=== PATIENT | female | born 1985 | race Caucasian/White ===

== ENCOUNTER 2016-12-26 22:55 | Emergency (ER) | payer MEDICARE ==
[2016-12-26] MEDS ORDERED: DUONEB 0.5-3 MG/3 ml Neb IH ONE ×2 (23:10→23:20)
--- NOTE | 2016-12-26 23:20 | ERPHSYRPT ---
- History of Present Illness Time Seen by Provider: 12/26/16 23:01 Source: patient Exam Limitations: no limitations Patient Subjective Stated Complaint: "I have been sick. I even went to my PCP and they gave me a steriod shot right then and there. My throat feeling swelled started today. The cough started 2 weeks ago. " Triage Nursing Assessment: aox3, breathing easy unlabored, skin pink warm dry, steady gait, speaking in complete sentences Physician History: ill for 1 1/2 weeks; started with sore throat and cough; low grade fever; some N &V associated with coughing paroxysm; no abd pain; one day late for period; may be ; has had unprotected sex; [facility] 1 a year ago no travel; no exposures; on ATBS and steroids- no better; cough non-productive Timing/Duration: week(s) (1.5 weeks), gradual onset, worse Cough Quality/Degree: mild, dry cough Possible Cause: no prior episodes Modifying Factors: Improves With: coughing Associated Symptoms: fever, chest pain/soreness (when coughs only), cough, sore throat, wheezing International travel in last 2 weeks: No Allergies/Adverse Reactions: sulfamethoxazole [From Bactrim] Allergy (Verified 12/26/16 23:11) trimethoprim [From Bactrim] Allergy (Verified 12/26/16 23:11) vancomycin Allergy (Verified 12/26/16 23:11) Home Medications: Levothyroxine Sodium [Synthroid] 75 mcg PO DAILY 09/01/11 [History] Folic Acid 1 mg PO DAILY 09/02/14 [History] Metformin HCl 1000 mg [Glucophage 1000 MG] 1,000 mg PO BID 09/02/14 [History] Secukinumab [Cosentyx (2 Syringes)] 300 mg IM UD 10/23/15 [History] Doxycycline Hyclate 100 mg [Vibramycin 100 MG] 100 mg PO BID 12/26/16 [ History] Ergocalciferol (Vitamin D2) [Vitamin D] 1 tab PO WEEKLY 12/26/16 [History] Fluoxetine HCl 20 mg [Prozac 20 MG] 20 mg PO DAILY 12/26/16 [History] Fluticasone Propionate [Children's Flonase Allergy Rlf] 9.9 ml NS DAILY [History] Methotrexate Sodium [Methotrexate] 8 tab PO WEEKLY 12/26/16 [History] Prednisone 10 mg [Deltasone 10 mg] 1 tab PO QID 12/26/16 [History] Hx Tetanus, Diphtheria Vaccination/Date Given: Yes Hx Influenza Vaccination/Date Given: No Hx Pneumococcal Vaccination/Date Given: No - Review of Systems Constitutional: Fever, No Night Sweats, No Weight Loss Eyes: No Symptoms Ears, Nose, & Throat: Throat Pain, Throat Swelling (feels like x 1 day), Hoarse (from coughing), No Ear Pain, No Tinnitus, No Sinus Drainage, No Epistaxis, No Painful Swallowing Respiratory: Cough, Wheezing, No Dyspnea Cardiac: Chest Pain (with coughing), No Palpitations, No Syncope Abdominal/Gastrointestinal: Nausea, Vomiting (with coughing paroxysms), No Abdominal Pain, No Constipation, No Dysphagia Genitourinary Symptoms: No Symptoms Musculoskeletal: No Symptoms Skin: Other (psoriasis) Neurological: No Symptoms Psychological: No Symptoms Endocrine: No Symptoms Hematologic/Lymphatic: No Symptoms - Past Medical History Pertinent Past Medical History: Yes Neurological History: No Pertinent History ENT History: No Pertinent History Cardiac History: No Pertinent History Respiratory History: Asthma, Sleep Apnea Endocrine Medical History: Diabetes Type I, Hypothyroidism Musculoskeletal History: Arthritis, Rheumatoid Arthritis GI Medical History: No Pertinent History History: No Pertinent History Psycho-Social History: No Pertinent History Female Reproductive Disorders: No Pertinent History Other Medical History: PSORIASIS - Past Surgical History Past Surgical History: Yes Neuro Surgical History: No Pertinent History Cardiac: No Pertinent History Respiratory: No Pertinent History Gastrointestinal: No Pertinent History Genitourinary: No Pertinent History Musculoskeletal: No Pertinent History Female Surgical History: No Pertinent History Other Surgical History: 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 - Social History Smoking Status: Current every day smoker How long have you smoked: 6 years Exposure to second hand smoke: Yes Alcohol Use: None Drug Use: none Patient Lives Alone: No Significant Family History: diabetes - Female History Hx Last Menstrual Period: 11/24/16 Hx Now: No - Nursing Vital Signs Nursing Vital Signs: Initial Vital Signs Temperature 97.9 F 12/26/16 23:01 Pulse Rate 96 H 12/26/16 23:01 Respiratory Rate 16 12/26/16 23:01 Blood Pressure 137/92 12/26/16 23:01 O2 Sat by Pulse Oximetry 97 12/26/16 23:01 Pain Scale Pain Intensity 5 - Physical Exam General Appearance: mild distress, alert, obese (morbid 356#s 5'2") Eye Exam: PERRL/EOMI, eyes nml inspection, No photophobia Ears, Nose, Throat Exam: normal ENT inspection, TMs normal, pharynx normal, moist mucous membranes, other (normal voice; uvual midline;), No pharyngeal erythema Neck Exam: normal inspection, non-tender, supple, full range of motion, No meningismus, No JVD, No subcutaneous emphysema Respiratory Exam: airway intact, diminished breath sounds, prolonged expirations , wheezing, No normal breath sounds, No chest tenderness, No lungs clear, No respiratory distress, No accessory muscle use, No rhonchi, No stridor Cardiovascular Exam: regular rate/rhythm, normal heart sounds, normal peripheral pulses, capillary refill <2 sec, No murmur Gastrointestinal/Abdomen Exam: soft, normal bowel sounds, No tenderness, No guarding, No rebound, No organomegaly Pelvic Exam: deferred Rectal Exam: deferred Back Exam: normal inspection, normal range of motion, No CVA tenderness Extremity Exam: normal inspection, normal range of motion, No dustin's sign, No pedal edema Neurologic Exam: alert, oriented x 3, cooperative, mold inspector II-XII nml as tested, normal mood/affect, nml cerebellar function, nml station & gait Skin Exam: normal color, warm, dry, other (psoriatic lesions on forearms), No rash, No petechiae, No cyanosis Lymphatic Exam: No adenopathy SpO2 Interpretation: normal SpO2: 97 Oxygen Delivery: Room Air - Course Nursing assessment & vital signs reviewed: Yes - Radiology Exams Chest X-ray Interpretation: Interpreted by me, No Pneumonia, No Pneumothorax, Nml Heart Size, No Infiltrates, Nml Mediastinum, Other (increased interstitial markings; poor inspiratory effort) Ordered Tests: Active Orders 24 hr Category Date Time Status Pulse Oximetry (ED) STAT Care 12/26/16 23:10 Active CHEST 1 VIEW (PORTABLE) Stat Exams 12/26/16 23:10 Taken CBC W DIFF Stat Lab 12/26/16 23:30 Completed CULTURE, THROAT Stat Lab 12/26/16 23:30 Received HCG QUALITATIVE,SERUM Stat Lab 12/26/16 23:30 Completed Manual Differential NC Stat Lab 12/26/16 23:30 Completed STREP SCREEN-BETA A Stat Lab 12/26/16 23:30 Completed Peak Expiratory Flow Rate ONCE RT 12/26/16 23:10 Completed Respiratory Nebulizer STAT RT 12/26/16 23:12 Completed Medication Summary Discontinued Medications Generic Name Dose Route Start Last Admin Trade Name Ryan PRN Reason Stop Dose Admin Albuterol/Ipratropium 3 ml 12/26/16 23:10 12/26/16 23:23 Duoneb 0.5-3 Mg/3 Ml Neb IH 12/26/16 23:11 3 ml STAT ONE Administration Albuterol/Ipratropium Confirm 12/26/16 23:20 Duoneb 0.5-3 Mg/3 Ml Neb Administered 12/26/16 23:21 Dose 3 ml IH .STK-MED ONE Lab/Rad Data: Laboratory Result Diagrams 12/26/16 23:30 Laboratory Results 12/26/16 12/26/16 12/26/16 Range/Units 23:30 23:30 23:30 WBC 16.0 H (4.0-10.5) K/mm3 RBC 4.25 (4.1-5.4) M/mm3 Hgb 13.3 (12.0-16.0) gm/dl Hct 41.7 (35-47) % MCV 98.1 (78-100) fl MCH 31.3 (26-32) pg MCHC 31.9 L (32-36) g/dl RDW 13.7 (11.5-14.0) % Plt Count 242 (150-450) K/mm3 MPV 10.2 H (6-9.5) fl Serum , Qual NEGATIVE (Negative) Streptococcus Screen NEGATIVE (Negative) reviewed - Progress Progress: re-examined (after resp treatment and xr) Air Movement: fair, good (after resp treatmetn) Progress Note: 12/26/16 23:21 will give resp treatment; will check preg and strep; will xr and shield; will recheck 12/26/16 23:44 recheck after respiratory treatment; peak flow pre 260 and post 260; wheezing resolved after duoneb and prolonged expiratory phase improved; hoarse voice improved; cxr unremarkable; labs pending 12/26/16 23:55 strep neg; elevated WBC but on steroids for several days now 12/27/16 00:09 preg test neg; treatment plan discussed and instructions given Blood Culture(s) Obtained: No Antibiotics given: No Counseled pt/family regarding: lab results, diagnosis, need for follow-up, rad results, smoking cessation - Departure Time of Disposition: 00:10 Departure Disposition: Home Clinical Impression: Asthmatic bronchitis, Laryngitis Condition: Stable Critical Care Time: No Referrals: CASSIE GUNN, GENETIC COUNSELOR [Primary Care Provider] - Instructions: Cough -- Adult, Laryngitis Additional Instructions: vaporizer; clear fluids; no talking; use inhaler prn; continue meds; chlorseptic gargles Follow-up with family doctor as directed. Call for appointment. Return if any problems. If you smoke please stop. Call or follow up with your family doctor for assistance if you need it to stop. Please wear your seatbelt when driving. Have a nice day. Thank you for allowing us to participate in your care today. :o) Dr Benny Faustin Prescriptions: Albuterol 8 gm Mdi Hfa [Ventolin Hfa MDI] 8 gm IH Q4-6HPRN PRN #1 [email or web address] PRN Reason: Cough
[2016-12-26 23:36] LABS: Mean Cell Volume 98.1 fl (78-100); Mean Corpuscular Hemoglobin 31.3 pg (26-32); Mean Platelet Volume 10.2 fl (6-9.5); Platelet Count 242 K/mm3 (150-450); Red Blood Count 4.25 M/mm3 (4.1-5.4); Red Cell Distribution Width 13.7 % (11.5-14.0)
[2016-12-27] VITALS: BP 114/51; PULSE 89
[2016-12-27 00:13] VITALS: O2SAT 97
[2016-12-27 01:41] LABS: ATYPICAL LYMPHS 3 %; Platelet Estimate NORMAL (NORMAL); Total Cells Counted 100
--- NOTE | 2016-12-27 09:15 | XRAY ---
Indication: Fever and cough. Comparison: September 02, 2014. Portable chest underinflated today accentuating the cardiopulmonary structures. No focal infiltrate, consolidation, or large effusion. Heart still within normal limits for AP portable technique. Bony thorax intact. Impression: Nonacute underinflated chest.
== END 2016-12-27 00:17 | disposition home or self-care (01) ==
LOC: ED 22:55
DX: J45.909 Unspecified asthma, uncomplicated (principal); J04.0 Acute laryngitis; R50.9 Fever, unspecified; R05 Cough; R06.2 Wheezing; R11.2 Nausea with vomiting, unspecified
CPT/HCPCS: 36415; 71010; 84703; 85025; 87070; 87430; 94150; 94640; 99283; 99284; A9270-GY

== ENCOUNTER 2018-09-27 12:13 | Emergency (ER) | payer MEDICARE ==
[2018-09-27 12:53] VITALS: BP 111/83; PULSE 97
[2018-09-27 13:43] LABS: Hematocrit 41.8 % (35-47); Hemoglobin 12.8 gm/dl (12.0-16.0); Mean Cell Volume 98.4 fl (78-100); Mean Corpuscular Hemoglobin 30.1 pg (26-32); Mean Corpuscular Hgb Concent. 30.6 g/dl (32-36); Mean Platelet Volume 9.9 fl (6-9.5); Platelet Count 225 K/mm3 (150-450); Red Blood Count 4.25 M/mm3 (4.1-5.4); Red Cell Distribution Width 14.9 % (11.5-14.0); White Blood Count 10.9 K/mm3 (4.0-10.5)
--- NOTE | 2018-09-27 13:48 | ERPHSYRPT ---
- History of Present Illness Time Seen by Provider: 09/27/18 13:46 Source: patient Exam Limitations: no limitations Patient Subjective Stated Complaint: fever for 3 days, cough non productive, chest congestion. vomiting today. no diarrhea. Triage Nursing Assessment: Alert and oriented. non productive persistant cough. non labored breathing. lungs clear to auscultation. Physician History: fever for 3 days, cough non productive, chest congestion. vomiting today. no diarrhea. Timing/Duration: today Associated Symptoms: chest pain/soreness, cough, headache, nasal congestion, sore throat, wheezing Allergies/Adverse Reactions: sulfamethoxazole [From Bactrim] Allergy (Verified 12/26/16 23:11) trimethoprim [From Bactrim] Allergy (Verified 12/26/16 23:11) vancomycin Allergy (Verified 12/26/16 23:11) Home Medications: Levothyroxine Sodium [Synthroid] 274 mcg PO DAILY 09/01/11 [History] Folic Acid 1 mg PO DAILY 09/02/14 [History] Secukinumab [Cosentyx (2 Syringes)] 300 mg IM UD 10/23/15 [History] Ergocalciferol (Vitamin D2) [Vitamin D] 1 tab PO WEEKLY 12/26/16 [History] Fluoxetine HCl 20 mg [Prozac 20 MG] 20 mg PO DAILY 12/26/16 [History] Methotrexate Sodium [Methotrexate] 8 tab PO WEEKLY 12/26/16 [History] Sitagliptin Phosphate 50 MG [Januvia 50 MG] 100 mg PO DAILY 09/27/18 [ History] Hx Tetanus, Diphtheria Vaccination/Date Given: Yes Hx Influenza Vaccination/Date Given: No Hx Pneumococcal Vaccination/Date Given: No Immunizations Up to Date: Yes - Review of Systems Constitutional: Fever, Malaise, Weakness, No Chills Eyes: No Symptoms Ears, Nose, & Throat: No Symptoms Respiratory: Cough, Wheezing, No Dyspnea Cardiac: No Chest Pain, No Edema, No Syncope Abdominal/Gastrointestinal: No Abdominal Pain, No Nausea, No Vomiting, No Diarrhea Genitourinary Symptoms: No Dysuria Musculoskeletal: No Back Pain, No Neck Pain Skin: No Rash Neurological: No Dizziness, No Focal Weakness, No Sensory Changes Psychological: No Symptoms Endocrine: No Symptoms All Other Systems: Reviewed and Negative - Past Medical History Pertinent Past Medical History: Yes Neurological History: No Pertinent History ENT History: No Pertinent History Cardiac History: No Pertinent History Respiratory History: Asthma, Sleep Apnea Endocrine Medical History: Diabetes Type I, Hypothyroidism Musculoskeletal History: Arthritis, Rheumatoid Arthritis GI Medical History: No Pertinent History History: No Pertinent History Psycho-Social History: No Pertinent History Female Reproductive Disorders: No Pertinent History Other Medical History: PSORIASIS - Past Surgical History Past Surgical History: Yes Neuro Surgical History: No Pertinent History Cardiac: No Pertinent History Respiratory: No Pertinent History Gastrointestinal: No Pertinent History Genitourinary: No Pertinent History Musculoskeletal: No Pertinent History Female Surgical History: No Pertinent History Other Surgical History: 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 - Social History Smoking Status: Current every day smoker How long have you smoked: 6 years Exposure to second hand smoke: Yes Alcohol Use: None Drug Use: none Patient Lives Alone: No Significant Family History: diabetes - Female History Hx Last Menstrual Period: 09/05/18 Hx Now: No - Nursing Vital Signs Nursing Vital Signs: Initial Vital Signs Temperature 98.5 F 09/27/18 12:14 Pulse Rate 97 H 09/27/18 12:14 Respiratory Rate 22 09/27/18 12:14 Blood Pressure 111/83 09/27/18 12:14 Pain Scale Pain Intensity 4 - Physical Exam General Appearance: no apparent distress, alert Eye Exam: PERRL/EOMI, eyes nml inspection Ears, Nose, Throat Exam: normal ENT inspection, TMs normal, pharynx normal, moist mucous membranes Neck Exam: normal inspection, non-tender, supple, full range of motion Respiratory Exam: diminished breath sounds, rhonchi, wheezing, No respiratory distress Cardiovascular Exam: regular rate/rhythm, normal heart sounds Gastrointestinal/Abdomen Exam: soft, No tenderness Back Exam: normal inspection, No CVA tenderness, No vertebral tenderness Extremity Exam: normal inspection, normal range of motion Neurologic Exam: alert, oriented x 3, cooperative, normal mood/affect, sensation nml, No motor deficits Skin Exam: normal color, warm, dry, No rash Lymphatic Exam: No adenopathy - Course Nursing assessment & vital signs reviewed: Yes - Radiology Exams Chest X-ray Interpretation: Reviewed by me, Negative Ordered Tests: Active Orders 24 hr Category Date Time Status CHEST 2 VIEWS (PA AND LAT) Stat Exams 09/27/18 13:11 Taken BMP Stat Lab 09/27/18 13:37 Received CBC W DIFF Stat Lab 09/27/18 13:37 Completed Manual Differential NC Stat Lab 09/27/18 13:37 Completed Medication Summary Generic Name Dose Route Start Last Admin Trade Name Ryan PRN Reason Stop Dose Admin Ceftriaxone Sodium 1,000 mg 09/27/18 13:49 Rocephin 1000 Mg Inj IM 09/27/18 13:50 STAT ONE Hydrocortisone Sodium Succinate 250 mg 09/27/18 13:49 Solu-Cortef 250mg IV 09/27/18 13:50 STAT ONE Lab/Rad Data: Laboratory Result Diagrams 09/27/18 13:37 Laboratory Results 09/27/18 Range/Units 13:37 WBC 10.9 H (4.0-10.5) K/mm3 RBC 4.25 (4.1-5.4) M/mm3 Hgb 12.8 (12.0-16.0) gm/dl Hct 41.8 (35-47) % MCV 98.4 (78-100) fl MCH 30.1 (26-32) pg MCHC 30.6 L (32-36) g/dl RDW 14.9 H (11.5-14.0) % Plt Count 225 (150-450) K/mm3 MPV 9.9 H (6-9.5) fl - Progress Progress: improved Air Movement: good Blood Culture(s) Obtained: No Antibiotics given: No Counseled pt/family regarding: lab results, diagnosis, need for follow-up, rad results - Departure Departure Disposition: Home Clinical Impression: Bronchitis Condition: Stable Critical Care Time: No Referrals: CASSIE GUNN, SHINGLE SHEARING MACHINE OPERATOR [Primary Care Provider] - Followup in 3 days w/ PCP Instructions: Acute Bronchitis, Adult (DC), Risk Factors for COPD, Chronic Bronchitis (DC) Additional Instructions: Discharge/Care Plan ELVIRAMISTI KATELYNN BOND was seen on 09/27/18 in the Emergency Room. The patient was counseled regarding Diagnosis,Lab results, Imaging studies, need for follow up and when to return to the Emergency Room. Prescriptions given: Discharge Note I have spoken with the patient and/or caregivers. I have explained the patient' s condition, diagnosis and treatment plan based on the information available to me at this time. I have answered the patient's and/or caregiver's questions and addressed any concerns. The patient and/or caregivers have as good understanding of the patient's diagnosis, condition and treatment plan as can be expected at this point. The vital signs have been stable. The patient's condition is stable and appropriate for discharge from the emergency department. The patient will pursue further outpatient evaluation with the primary care physician or other designated or consulting physician as outlined in the discharge instructions. The patient and/or caregivers are agreeable to this plan of care and follow-up instructions have been explained in detail. The patient and/or caregivers have received these instruction. The patient/and or caregivers are aware that any significant change in condition or worsening of symptoms should prompt an immediate return to this or the closest emergency department or call 911. Prescriptions: Amoxicillin/Potassium Clav [Amox-Clav ER 1,000-62.5 mg Tab] 1 each PO Q12H #15 tab.er.12h
[2018-09-27] MEDS ORDERED: solu-CORTEF 250MG IV ONE (13:49)
[2018-09-27] MEDS ORDERED: Rocephin 1000 MG INJ IM ONE (13:49)
[2018-09-27 13:51] LABS: ANION GAP 13.9 MEQ/L (5-15); BLOOD UREA NITROGEN 8 mg/dL (7-17); CHLORIDE 96 mmol/L (98-107); Calcium 8.7 mg/dL (8.4-10.2); Carbon Dioxide 32 mmol/L (22-30); Creatinine 1 0.68 mg/dL (0.52-1.04); Glucose 159 mg/dL (74-106); Potassium 4.3 mmol/L (3.5-5.1); SODIUM 138 mmol/L (137-145)
[2018-09-27] MEDS ORDERED: Rocephin 1000 MG INJ ONE (13:54)
[2018-09-27 14:13] LABS: Eosinophil 5 % (0.00-3.0); Lymphocytes 19 % (24-44); Monocyte 3 % (0.0-12.0); Neutrophils 73 % (36.0-66.0); Platelet Estimate NORMAL (NORMAL); Total Cells Counted 100; Toxic Granulation 1+
--- NOTE | 2018-09-27 20:16 | XRAY ---
Indication: Fever, congestion, and vomiting. Comparison: December 26, 2016. PA/lateral chest remains clear. Heart and mediastinal structures within normal limits. Bony thorax intact again with mild degenerative changes. Impression: Stable nonacute chest.
== END 2018-09-27 14:18 | disposition home or self-care (01) ==
LOC: ED 12:13
DX: J40 Bronchitis, not specified as acute or chronic (principal); R05 Cough; R50.9 Fever, unspecified; R09.89 Other specified symptoms and signs involving the circulatory and respiratory systems; Z79.899 Other long term (current) drug therapy; E10.9 Type 1 diabetes mellitus without complications; E03.9 Hypothyroidism, unspecified; R11.10 Vomiting, unspecified
CPT/HCPCS: 36415; 71046; 80048; 85025; 96372; 99284; J0696; J1720

== ENCOUNTER 2022-04-24 20:40 | Emergency (ER) | payer MEDICARE ==
[2022-04-24 22:10] VITALS: BP 132/102; PULSE 101; O2SAT 99
[2022-04-24 22:37] LABS: Basophil (Absolute #) 0.11 x10^3/uL (0-0.4); Eosinophil % 2.9 % (0.00-5.0); Hematocrit 43.6 % (35-47); Hemoglobin 13.8 g/dL (12.0-16.0); Lymphocyte (Absolute #) 1.22 x10^3/uL (1.0-4.6); Lymphocytes % 11.8 % (24.0-44.0); Mean Cell Volume 98.2 fL (78-100); Mean Corpuscular Hemoglobin 31.1 pg (26-32); Mean Corpuscular Hgb Concent. 31.7 g/dL (32-36); Mean Platelet Volume 9.3 fL (7.5-11.0); Monocyte (Absolute #) 0.85 x10^3/uL (0.0-1.3); Monocytes % 8.3 % (0.0-12.0); Neutrophil % 74.7 % (36.0-66.0); Platelet Count 208 x10^3/uL (150-450); Red Blood Count 4.44 x10^6/uL (4.1-5.4); Red Cell Distribution Width 12.9 % (11.5-14.0); White Blood Count 10.3 x10^3/uL (4.0-10.5)
[2022-04-24 22:54] LABS: ALBUMIN 4.1 g/dL (3.5-5.0); ANION GAP 10.7 MEQ/L (5-15); BILIRUBIN,TOTAL 0.5 mg/dL (0.2-1.3); Calcium 8.5 mg/dL (8.4-10.2); Creatinine 1 1.1 mg/dL (0.52-1.04); EST GLOMERULAR FILTRATION RATE 59.7 ML/MIN; Potassium 4.8 mmol/L (3.5-5.1); Total Protein 7.5 g/dL (6.3-8.2)
--- NOTE | 2022-04-25 00:26 | ERPHSYRPT ---
- History of Present Illness Time Seen by Provider: 04/24/22 21:50 Source: patient Exam Limitations: no limitations Patient Subjective Stated Complaint: pt states she has been having diarrhea recently and today had a black stool. took 1 dose of pepto yesterday. Triage Nursing Assessment: pt alert and oriented, ambulates into room with steady gait noted. respirations nonlabored. skin warm and dry. psoriasis rash noted generalized . abd soft and nontender. bowel sounds present x 4 quads. Physician History: Patient is a 36-year-old female who presents with a complaint of a black tarry stool. She had been having some diarrhea she was recently taken off of Ozempic and put on another medication. She did take some Pepto-Bismol for her diarrhea yesterday before the black stool. Timing/Duration: day(s) (3) Severity: moderate Modifying Factors: Improves With: nothing Associated Symptoms: nausea, abdominal pain Allergies/Adverse Reactions: sulfamethoxazole [From Bactrim] Allergy (Verified 04/24/22 22:11) trimethoprim [From Bactrim] Allergy (Verified 04/24/22 22:11) vancomycin Allergy (Verified 04/24/22 22:11) Home Medications: Levothyroxine Sodium [Synthroid] 274 mcg PO DAILY 09/01/11 [History] Folic Acid 1 mg PO DAILY 09/02/14 [History] Secukinumab [Cosentyx (2 Syringes)] 300 mg IM UD 10/23/15 [History] Ergocalciferol (Vitamin D2) [Vitamin D] 1 tab PO WEEKLY 12/26/16 [History] Fluoxetine HCl 20 mg [Prozac 20 MG] 20 mg PO DAILY 12/26/16 [History] metHOTREXate sodium [Methotrexate] 8 tab PO WEEKLY 12/26/16 [History] Sitagliptin Phosphate 50 MG [Januvia 50 MG] 100 mg PO DAILY 09/27/18 [History] Hx Tetanus, Diphtheria Vaccination/Date Given: Yes Hx Influenza Vaccination/Date Given: No Hx Pneumococcal Vaccination/Date Given: No Immunizations Up to Date: Yes Travel Risk - International Travel Have you traveled outside of the country in past 3 weeks: No - Coronavirus Screening Are you exhibiting any of the following symptoms?: No Close contact with a COVID-19 positive Pt in past 14-21 Days: No - Vaccine Status Have you recieved a Covid-19 vaccination: Yes Organ Tuner: Pfizer - Vaccination Dates Date of 2cond Vaccination (if applicable): 02/08/21 - Review of Systems Constitutional: No Fever, No Chills Eyes: No Symptoms Ears, Nose, & Throat: No Symptoms Respiratory: No Cough, No Dyspnea Cardiac: No Chest Pain, No Edema, No Syncope Abdominal/Gastrointestinal: Melena, No Abdominal Pain, No Nausea, No Vomiting, No Diarrhea Genitourinary Symptoms: No Dysuria Musculoskeletal: No Back Pain, No Neck Pain Skin: No Rash Neurological: No Dizziness, No Focal Weakness, No Sensory Changes Psychological: No Symptoms Endocrine: No Symptoms All Other Systems: Reviewed and Negative - Past Medical History Pertinent Past Medical History: Yes Neurological History: No Pertinent History ENT History: No Pertinent History Cardiac History: No Pertinent History Respiratory History: Asthma, Sleep Apnea Endocrine Medical History: Diabetes Type I, Hypothyroidism Musculoskeletal History: Arthritis, Rheumatoid Arthritis GI Medical History: No Pertinent History History: No Pertinent History Psycho-Social History: No Pertinent History, Anxiety Female Reproductive Disorders: No Pertinent History Other Medical History: PSORIASIS - Past Surgical History Past Surgical History: Yes Neuro Surgical History: No Pertinent History Cardiac: No Pertinent History Respiratory: No Pertinent History Gastrointestinal: No Pertinent History Genitourinary: No Pertinent History Musculoskeletal: No Pertinent History Female Surgical History: No Pertinent History Other Surgical History: 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 - Social History Smoking Status: Current every day smoker How long have you smoked: 20 yrs Exposure to second hand smoke: Yes Alcohol Use: None Drug Use: none Patient Lives Alone: No Significant Family History: diabetes - Female History Hx Last Menstrual Period: last month Hx Now: No - Nursing Vital Signs Nursing Vital Signs: Initial Vital Signs Temperature 98.0 F 04/24/22 21:49 Pulse Rate 101 H 04/24/22 21:49 Respiratory Rate 18 04/24/22 21:49 Blood Pressure 132/102 04/24/22 21:49 O2 Sat by Pulse Oximetry 99 04/24/22 21:49 Pain Scale Pain Intensity 0 - Physical Exam General Appearance: no apparent distress, alert Eye Exam: PERRL/EOMI, eyes nml inspection Ears, Nose, Throat Exam: normal ENT inspection, TMs normal, pharynx normal, moist mucous membranes Neck Exam: normal inspection, non-tender, supple, full range of motion Respiratory Exam: normal breath sounds, lungs clear, No respiratory distress Cardiovascular Exam: regular rate/rhythm, normal heart sounds, normal peripheral pulses Gastrointestinal/Abdomen Exam: soft, normal bowel sounds, No tenderness, No mass Back Exam: normal inspection, normal range of motion, No CVA tenderness, No vertebral tenderness Extremity Exam: normal inspection, normal range of motion, pelvis stable Neurologic Exam: alert, oriented x 3, cooperative, normal mood/affect, nml cerebellar function, nml station & gait, sensation nml, No motor deficits Skin Exam: normal color, warm, dry, No rash Lymphatic Exam: No adenopathy SpO2: 99 - Course Nursing assessment & vital signs reviewed: Yes Ordered Tests: Active Orders 24 hr Category Date Time Status CBC W DIFF Stat Lab 04/24/22 22:35 Completed CMP Stat Lab 04/24/22 22:35 Completed Occult Blood Stool [FECAL OCCULT BLOOD - SCREENING] Lab 04/24/22 23:25 Complet ed Stat Lab/Rad Data: Laboratory Result Diagrams 04/24/22 22:35 04/24/22 22:35 Laboratory Results 04/24/22 04/24/22 04/24/22 Range/Units 23:25 22:35 22:35 WBC 10.3 (4.0-10.5) x10^3/uL RBC 4.44 (4.1-5.4) x10^6/uL Hgb 13.8 (12.0-16.0) g/dL Hct 43.6 (35-47) % MCV 98.2 (78-100) fL MCH 31.1 (26-32) pg MCHC 31.7 L (32-36) g/dL RDW 12.9 (11.5-14.0) % Plt Count 208 (150-450) x10^3/uL MPV 9.3 (7.5-11.0) fL Gran % 74.7 H (36.0-66.0) % Immature Gran % (Auto) 1.2 H (0.00-0.4) % Nucleat RBC Rel Count 0.0 (0.00-0.1) % Eos # (Auto) 0.30 (0-0.5) x10^3/uL Immature Gran # (Auto) 0.12 H (0.00-0.03) x10^3u/L Absolute Lymphs (auto) 1.22 (1.0-4.6) x10^3/uL Absolute Monos (auto) 0.85 (0.0-1.3) x10^3/uL Absolute Nucleated RBC 0.00 (0.00-0.01) x10^3u/L Lymphocytes % 11.8 L (24.0-44.0) % Monocytes % 8.3 (0.0-12.0) % Eosinophils % 2.9 (0.00-5.0) % Basophils % 1.1 (0.0-0.4) % Absolute Granulocytes 7.70 H (1.4-6.9) x10^3/uL Basophils # 0.11 (0-0.4) x10^3/uL Sodium 133 L (137-145) mmol/L Potassium 4.8 (3.5-5.1) mmol/L Chloride 98 (98-107) mmol/L Carbon Dioxide 29 (22-30) mmol/L Anion Gap 10.7 (5-15) MEQ/L BUN 13 (7-17) mg/dL Creatinine 1.10 H (0.52-1.04) mg/dL Estimated GFR 59.7 ML/MIN Glucose 156 H (74-106) mg/dL Calcium 8.5 (8.4-10.2) mg/dL Total Bilirubin 0.50 (0.2-1.3) mg/dL AST 30 (14-36) U/L ALT 30 (0-35) U/L Alkaline Phosphatase 75 (38-126) U/L Serum Total Protein 7.5 (6.3-8.2) g/dL Albumin 4.1 (3.5-5.0) g/dL Stool Occult Blood NEGATIVE (NEGATIVE) - Departure Departure Disposition: Home Clinical Impression: Diarrhea Condition: Stable Critical Care Time: No Referrals: CASSIE GUNN NP [Primary Care Provider] - Follow up/PCP as directed Instructions: Diarrhea and Travelers' Diarrhea, Adult (DC)
== END 2022-04-25 00:40 | disposition home or self-care (01) ==
LOC: ED 20:40
DX: R19.7 Diarrhea, unspecified (principal); K92.1 Melena; E10.9 Type 1 diabetes mellitus without complications; Z79.84 Long term (current) use of oral hypoglycemic drugs; Z79.85 Long-term (current) use of injectable non-insulin antidiabetic drugs; Z79.899 Other long term (current) drug therapy; Z72.0 Tobacco use
CPT/HCPCS: 36415; 80053; 85025; 99282; G0328; 82274

== ENCOUNTER 2022-04-29 14:51 | Emergency (ER) | payer MEDICARE ==
[2022-04-29] MEDS ORDERED: BABY ASPIRIN 81 MG CHEW PO ONE (15:04)
[2022-04-29] MEDS ORDERED: Zofran 4 MG/2 ML VIAL IV ONE (15:04)
[2022-04-29] MEDS ORDERED: MORPHINE SULFATE 4 MG INJ IV ONE (15:04)
[2022-04-29] MEDS ORDERED: Sodium Chloride 0.9% 1000 ML 1,000 ML IV STA (15:04)
[2022-04-29 15:12] VITALS: O2SAT 99
[2022-04-29 15:20] LABS: Absolute Neutrophil Ct (ANC) 6.89 x10^3/uL (1.4-6.9); Eosinophil % 2.8 % (0.00-5.0); Eosinophil (Absolute #) 0.27 x10^3/uL (0-0.5); Hematocrit 44.9 % (35-47); Hemoglobin 14.2 g/dL (12.0-16.0); Lymphocyte (Absolute #) 1.21 x10^3/uL (1.0-4.6); Lymphocytes % 12.8 % (24.0-44.0); Mean Cell Volume 96.8 fL (78-100); Mean Corpuscular Hemoglobin 30.6 pg (26-32); Mean Corpuscular Hgb Concent. 31.6 g/dL (32-36); Monocyte (Absolute #) 0.93 x10^3/uL (0.0-1.3); Monocytes % 9.8 % (0.0-12.0); Neutrophil % 72.7 % (36.0-66.0); Platelet Count 204 x10^3/uL (150-450); Red Blood Count 4.64 x10^6/uL (4.1-5.4); Red Cell Distribution Width 13.2 % (11.5-14.0); White Blood Count 9.5 x10^3/uL (4.0-10.5)
[2022-04-29] MEDS ORDERED: Zofran 4 MG/2 ML VIAL ONE (15:32)
[2022-04-29] MEDS ORDERED: BABY ASPIRIN 81 MG CHEW ONE (15:32)
[2022-04-29] MEDS ORDERED: Sodium Chloride 0.9% 1000 ML 1,000 ML ONE (15:32)
[2022-04-29] MEDS ORDERED: MORPHINE SULFATE 4 MG INJ ONE (15:32)
[2022-04-29 15:37] LABS: ALBUMIN 4.2 g/dL (3.5-5.0); ALKALINE PHOSPHATASE 69 U/L (38-126); BLOOD UREA NITROGEN 9 mg/dL (7-17); CHLORIDE 103 mmol/L (98-107); CK-Creatinine Phosphokinase 35 U/L (30-135); Calcium 8.7 mg/dL (8.4-10.2); Carbon Dioxide 26 mmol/L (22-30); Creatinine 1 0.75 mg/dL (0.52-1.04); EST GLOMERULAR FILTRATION RATE > 60.0 ML/MIN; Glucose 142 mg/dL (74-106); NT PRO BNP 20.6 pg/mL (0-450); Potassium 4.2 mmol/L (3.5-5.1); SGOT/AST 61 U/L (14-36); SGPT/ALT 37 U/L (0-35); SODIUM 137 mmol/L (137-145); Total Protein 7.8 g/dL (6.3-8.2)
--- NOTE | 2022-04-29 16:21 | XRAY ---
Indication: Right chest pain. Comparison: September 27, 2018 Portable chest again demonstrates normal heart and lungs. Bony thorax intact with mild degenerative changes. No new/acute findings.
--- NOTE | 2022-04-29 17:05 | ERPHSYRPT ---
- History of Present Illness Time Seen by Provider: 04/29/22 15:04 Patient Subjective Stated Complaint: Right sided chest pain/tightness that started around 11am today. Denies SOB, N/V. Triage Nursing Assessment: Patient ambulated back to ED. No SOB noted. She is alert and oriented. Scales noted to BUE and BLE; patient states psoriasis. SPENCER [place]. Physician History: 36 years old morbidly obese female with history of psoriasis, hypothyroidism presented in the ER with chief complaint of right-sided chest pain sudden onset almost 3 to 4 hours prior to arrival while she was resting. No difficulty breathing. No cough or palpitations. No fever or chills reported. Timing/Duration: today, hour(s) (4), sudden Activities at Onset: rest Quality: sharpness Location: other Chest Pain Radiation: no radiation Severity of Pain-Max: moderate Severity of Pain-Current: moderate Modifying Factors: Improves With: nothing Associated Symptoms: denies symptoms Prior Chest Pain/Cardiac Workup: no prior chest pain Nitro Today/Relief: no nitro taken today Aspirin Treatment Today: no aspirin today Allergies/Adverse Reactions: sulfamethoxazole [From Bactrim] Allergy (Verified 04/29/22 15:00) trimethoprim [From Bactrim] Allergy (Verified 04/29/22 15:00) vancomycin Allergy (Verified 04/29/22 15:00) Home Medications: Levothyroxine Sodium [Synthroid] 274 mcg PO DAILY 09/01/11 [History] Folic Acid 1 mg PO DAILY 09/02/14 [History] Secukinumab [Cosentyx (2 Syringes)] 300 mg IM UD 10/23/15 [History] Ergocalciferol (Vitamin D2) [Vitamin D] 1 tab PO WEEKLY 12/26/16 [History] Fluoxetine HCl 20 mg [Prozac 20 MG] 20 mg PO DAILY 12/26/16 [History] metHOTREXate sodium [Methotrexate] 8 tab PO WEEKLY 12/26/16 [History] Sitagliptin Phosphate 50 MG [Januvia 50 MG] 100 mg PO DAILY 09/27/18 [History] Hx Tetanus, Diphtheria Vaccination/Date Given: Yes Hx Influenza Vaccination/Date Given: No Hx Pneumococcal Vaccination/Date Given: No Immunizations Up to Date: Yes Travel Risk - International Travel Have you traveled outside of the country in past 3 weeks: No - Coronavirus Screening Are you exhibiting any of the following symptoms?: No Close contact with a COVID-19 positive Pt in past 14-21 Days: No - Vaccine Status Have you recieved a Covid-19 vaccination: Yes 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[employer]: [employer] - Vaccination Dates Date of 2cond Vaccination (if applicable): 02/08/21 - Review of Systems Constitutional: No Symptoms Eyes: No Symptoms Ears, Nose, & Throat: No Symptoms Respiratory: No Symptoms Cardiac: Chest Pain Abdominal/Gastrointestinal: No Symptoms Genitourinary Symptoms: No Symptoms Musculoskeletal: No Symptoms Skin: No Symptoms Neurological: No Symptoms Endocrine: No Symptoms Hematologic/Lymphatic: No Symptoms Immunological/Allergic: No Symptoms - Past Medical History Pertinent Past Medical History: Yes Neurological History: No Pertinent History ENT History: No Pertinent History Cardiac History: No Pertinent History Respiratory History: Asthma, Sleep Apnea Endocrine Medical History: Diabetes Type I, Hypothyroidism Musculoskeletal History: Arthritis, Rheumatoid Arthritis GI Medical History: No Pertinent History History: No Pertinent History Psycho-Social History: No Pertinent History, Anxiety Female Reproductive Disorders: No Pertinent History Other Medical History: PSORIASIS - Past Surgical History Past Surgical History: Yes Neuro Surgical History: No Pertinent History Cardiac: No Pertinent History Respiratory: No Pertinent History Gastrointestinal: No Pertinent History Genitourinary: No Pertinent History Musculoskeletal: No Pertinent History Female Surgical History: No Pertinent History Other Surgical History: 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 - Social History Smoking Status: Current every day smoker How long have you smoked: 20 yrs Exposure to second hand smoke: Yes Alcohol Use: None Drug Use: none Patient Lives Alone: No Significant Family History: diabetes - Female History Hx Last Menstrual Period: Last month Hx Now: (unkn) - Nursing Vital Signs Nursing Vital Signs: Initial Vital Signs Temperature 98 F 04/29/22 15:01 Pulse Rate 110 H 04/29/22 15:01 Respiratory Rate 12 04/29/22 15:01 Blood Pressure 124/83 04/29/22 15:01 O2 Sat by Pulse Oximetry 99 04/29/22 15:01 Pain Scale Pain Intensity 0 - Physical Exam General Appearance: no apparent distress, alert, anxiety Eye Exam: PERRL/EOMI Ears, Nose, Throat Exam: normal ENT inspection Neck Exam: normal inspection Respiratory Exam: normal breath sounds, lungs clear Cardiovascular Exam: regular rate/rhythm, normal heart sounds Gastrointestinal/Abdomen Exam: soft, normal bowel sounds, No tenderness Back Exam: normal inspection, normal range of motion Extremity Exam: normal inspection, normal range of motion Neurologic Exam: alert, oriented x 3, cooperative Skin Exam: dry, rash SpO2 Interpretation: normal SpO2: 99 O2 Delivery: Room Air - Course EKG Interpreted by Me: RATE (94), Sinus Rhythm, NORMAL AXIS, NORMAL INTERVALS, Q-wave, Non-specific ST Changes Ordered Tests: Active Orders 24 hr Category Date Time Status Aerodynamics Professor STAT Care 04/29/22 15:05 Active EKG-ER Only STAT Care 04/29/22 15:04 Active IV Insertion STAT Care 04/29/22 15:04 Active CHEST 1 VIEW (PORTABLE) Stat Exams 04/29/22 15:04 Completed CBC W DIFF Stat Lab 04/29/22 15:00 Completed CK-Creatinine Phosphokinase Stat Lab 04/29/22 15:00 Completed CMP Stat Lab 04/29/22 15:00 Completed D-DIMER QUANTITATIVE Stat Lab 04/29/22 15:00 Completed HCG QUALITATIVE,SERUM Stat Lab 04/29/22 15:00 Completed NT PRO BNP Stat Lab 04/29/22 15:00 Completed TROPONIN Q4H Lab 04/29/22 15:00 Completed TROPONIN Q4H Lab 04/29/22 18:23 Completed TROPONIN Q4H Lab 04/29/22 23:15 Ordered Medication Summary Discontinued Medications Generic Name Dose Route Start Last Admin Trade Name Freq PRN Reason Stop Dose Admin Aspirin 324 mg 04/29/22 15:04 04/29/22 15:35 Aspirin 81 Mg Tab.Chew PO 04/29/22 15:05 324 mg STAT ONE Administration Aspirin Confirm 04/29/22 15:32 Aspirin 81 Mg Tab.Chew Administered 04/29/22 15:33 Dose 324 mg .ROUTE .STK-MED ONE Sodium Chloride 1,000 mls @ 999 mls/hr 04/29/22 15:04 04/29/22 16:36 Sodium Chloride 0.9% 1000 Ml IV 04/29/22 16:04 Infused .Q1H1M STA Infusion Sodium Chloride Confirm 04/29/22 15:32 Sodium Chloride 0.9% 1000 Ml Administered 04/29/22 15:33 Dose 1,000 mls @ ud .ROUTE .STK-MED ONE Morphine Sulfate 4 mg 04/29/22 15:04 04/29/22 15:35 Morphine Sulfate 4 Mg/Ml Injection IV 04/29/22 15:05 4 mg STAT ONE Administration Morphine Sulfate Confirm 04/29/22 15:32 Morphine Sulfate 4 Mg/Ml Injection Administered 04/29/22 15:33 Dose 4 mg .ROUTE .STK-MED ONE Ondansetron HCl 4 mg 04/29/22 15:04 04/29/22 15:35 Ondansetron Hcl 4 Mg/2 Ml Vial IV 04/29/22 15:05 4 mg STAT ONE Administration Ondansetron HCl Confirm 04/29/22 15:32 Ondansetron Hcl 4 Mg/2 Ml Vial Administered 04/29/22 15:33 Dose 4 mg .ROUTE .STK-MED ONE Lab/Rad Data: Laboratory Result Diagrams 04/29/22 15:00 04/29/22 15:00 Laboratory Results 04/29/22 04/29/22 04/29/22 Range/Units 18:23 15:00 15:00 WBC (4.0-10.5) x10^3/uL RBC (4.1-5.4) x10^6/uL Hgb (12.0-16.0) g/dL Hct (35-47) % MCV (78-100) fL MCH (26-32) pg MCHC (32-36) g/dL RDW (11.5-14.0) % Plt Count (150-450) x10^3/uL MPV (7.5-11.0) fL Gran % (36.0-66.0) % Immature Gran % (Auto) (0.00-0.4) % Nucleat RBC Rel Count (0.00-0.1) % Eos # (Auto) (0-0.5) x10^3/uL Immature Gran # (Auto) (0.00-0.03) x10^3u/L Absolute Lymphs (auto) (1.0-4.6) x10^3/uL Absolute Monos (auto) (0.0-1.3) x10^3/uL Absolute Nucleated RBC (0.00-0.01) x10^3u/L Lymphocytes % (24.0-44.0) % Monocytes % (0.0-12.0) % Eosinophils % (0.00-5.0) % Basophils % (0.0-0.4) % Absolute Granulocytes (1.4-6.9) x10^3/uL Basophils # (0-0.4) x10^3/uL D-Dimer 0.31 (0.0-0.50) mg/L Sodium (137-145) mmol/L Potassium (3.5-5.1) mmol/L Chloride (98-107) mmol/L Carbon Dioxide (22-30) mmol/L Anion Gap (5-15) MEQ/L BUN (7-17) mg/dL Creatinine (0.52-1.04) mg/dL Estimated GFR ML/MIN Glucose (74-106) mg/dL Calcium (8.4-10.2) mg/dL Total Bilirubin (0.2-1.3) mg/dL AST (14-36) U/L ALT (0-35) U/L Alkaline Phosphatase (38-126) U/L Creatine Kinase (30-135) U/L Troponin I < 0.012 (0.000-0.034) ng/mL NT-Pro-B Natriuret Pep (0-450) pg/mL Serum Total Protein (6.3-8.2) g/dL Albumin (3.5-5.0) g/dL Serum , Qual NEGATIVE (Negative) 04/29/22 04/29/22 04/29/22 Range/Units 15:00 15:00 15:00 WBC 9.5 (4.0-10.5) x10^3/uL RBC 4.64 (4.1-5.4) x10^6/uL Hgb 14.2 (12.0-16.0) g/dL Hct 44.9 (35-47) % MCV 96.8 (78-100) fL MCH 30.6 (26-32) pg MCHC 31.6 L (32-36) g/dL RDW 13.2 (11.5-14.0) % Plt Count 204 (150-450) x10^3/uL MPV 10.0 (7.5-11.0) fL Gran % 72.7 H (36.0-66.0) % Immature Gran % (Auto) 0.8 H (0.00-0.4) % Nucleat RBC Rel Count 0.0 (0.00-0.1) % Eos # (Auto) 0.27 (0-0.5) x10^3/uL Immature Gran # (Auto) 0.08 H (0.00-0.03) x10^3u/L Absolute Lymphs (auto) 1.21 (1.0-4.6) x10^3/uL Absolute Monos (auto) 0.93 (0.0-1.3) x10^3/uL Absolute Nucleated RBC 0.00 (0.00-0.01) x10^3u/L Lymphocytes % 12.8 L (24.0-44.0) % Monocytes % 9.8 (0.0-12.0) % Eosinophils % 2.8 (0.00-5.0) % Basophils % 1.1 (0.0-0.4) % Absolute Granulocytes 6.89 (1.4-6.9) x10^3/uL Basophils # 0.10 (0-0.4) x10^3/uL D-Dimer (0.0-0.50) mg/L Sodium 137 (137-145) mmol/L Potassium 4.2 (3.5-5.1) mmol/L Chloride 103 (98-107) mmol/L Carbon Dioxide 26 (22-30) mmol/L Anion Gap 12.0 (5-15) MEQ/L BUN 9 (7-17) mg/dL Creatinine 0.75 (0.52-1.04) mg/dL Estimated GFR > 60.0 ML/MIN Glucose 142 H (74-106) mg/dL Calcium 8.7 (8.4-10.2) mg/dL Total Bilirubin 0.70 (0.2-1.3) mg/dL AST 61 H (14-36) U/L ALT 37 H (0-35) U/L Alkaline Phosphatase 69 (38-126) U/L Creatine Kinase 35 (30-135) U/L Troponin I < 0.012 (0.000-0.034) ng/mL NT-Pro-B Natriuret Pep 20.6 (0-450) pg/mL Serum Total Protein 7.8 (6.3-8.2) g/dL Albumin 4.2 (3.5-5.0) g/dL Serum , Qual (Negative) - Progress Progress: improved Air Movement: good Progress Note: 04/29/22 19:04 36 years old is evaluated for right-sided chest pain for the last few hours. She is given symptomatic treatment, on reevaluation feeling better. EKG did not show any acute ischemic changes and negative troponins x2, chest x-ray negative for any acute cardiopulmonary findings. Did D-dimer which are negative. Jose herbert has no swelling in the legs. Patient' has low heart score, do not think needs further evaluation, pain seems to be atypical for cardiac event and more of a pleurisy, recommended taking Tylenol ibuprofen and outpatient follow-up. Discussed signs symptoms of worsening needing return to ER which she seems understanding. Stable for discharge. 04/29/22 19:05 Blood Culture(s) Obtained: No Antibiotics given: No Counseled pt/family regarding: lab results, diagnosis, need for follow-up, rad results - Departure Departure Disposition: Home Clinical Impression: Atypical chest pain Condition: Stable Critical Care Time: No Referrals: CASSIE GUNN DB2 SYSTEMS PROGRAMMER [Primary Care Provider] - Follow up/PCP as directed (1-2 days for reevaluation) Instructions: Chest Pain (DC), Angina (DC) Additional Instructions: Take Tylenol/ibuprofen as needed. Follow-up with primary care for reevaluation. Return to ER for any worsening of chest pain, palpitation or difficulty breathing etc.
[2022-04-29 17:21] VITALS: BP 104/50; PULSE 90
== END 2022-04-29 19:12 | disposition home or self-care (01) ==
LOC: ED 14:51
DX: R07.89 Other chest pain (principal); Z79.84 Long term (current) use of oral hypoglycemic drugs; Z79.899 Other long term (current) drug therapy; E10.9 Type 1 diabetes mellitus without complications; Z72.0 Tobacco use
CPT/HCPCS: 36000; 36415; 71045; 80053; 82550; 83880; 84484; 84703; 85025; 85379; 93005; 93041; 96374; 96375; 99284; J2270; J2405; A9270-GY

== ENCOUNTER 2022-05-07 19:04 | Emergency (ER) | payer MEDICARE ==
[2022-05-07 20:24] LABS: Absolute Neutrophil Ct (ANC) 7.72 x10^3/uL (1.4-6.9); Eosinophil % 1.2 % (0.00-5.0); Eosinophil (Absolute #) 0.11 x10^3/uL (0-0.5); Hematocrit 43.9 % (35-47); Hemoglobin 13.6 g/dL (12.0-16.0); Lymphocyte (Absolute #) 1.05 x10^3/uL (1.0-4.6); Lymphocytes % 11.4 % (24.0-44.0); Mean Cell Volume 98.4 fL (78-100); Mean Corpuscular Hemoglobin 30.5 pg (26-32); Mean Platelet Volume 9.6 fL (7.5-11.0); Monocyte (Absolute #) 0.17 x10^3/uL (0.0-1.3); Monocytes % 1.8 % (0.0-12.0); Neutrophil % 83.5 % (36.0-66.0); Platelet Count 218 x10^3/uL (150-450); Red Blood Count 4.46 x10^6/uL (4.1-5.4); Red Cell Distribution Width 12.6 % (11.5-14.0); White Blood Count 9.2 x10^3/uL (4.0-10.5)
--- NOTE | 2022-05-07 20:38 | ERPHSYRPT ---
- History of Present Illness Time Seen by Provider: 05/07/22 19:20 Source: patient Exam Limitations: no limitations Patient Subjective Stated Complaint: pt states while sitting on the couch, she started feeling like her heart was beating hard and got anxious. states he had some palpitations and her heart rate at home was 130. pt states she started prednisone 20mg po today for skin issues Triage Nursing Assessment: pt alert and oreinted, answers questions approp. pt ambulatory with steady gait noted. respirations nonlabored. skin warm and dry. rash genralized- pts normal. heart rate 102 sinus tach on monitor. Physician History: Patient is 36-year-old female with a history of psoriasis presents to our ED for evaluation of heart palpitations. Patient states that she was sitting at home on a couch when she developed heart palpitations. Patient checked her heart rate. She observed the heart rate to be between 1 20-1 30. Patient became alarmed. Patient thought she was having a heart attack. Patient had no chest pain. Patient then came to our ED for evaluation. She advises that she started prednisone today to address an exacerbation of her psoriasis. No associated nausea vomiting or diaphoresis. No fever. No trauma. No active palpitations at this time. Symptoms are improving. Significant other at bedside. They voiced no other complaints or concerns at this time. Portions of this note were created with voice recognition technology. There may be grammatical, spelling, punctuation or sound alike errors Timing/Duration: today Severity: moderate Modifying Factors: Improves With: nothing Associated Symptoms: denies symptoms, No shortness of breath, No cough, No chills, No headaches, No syncope, No seizure, No weakness Allergies/Adverse Reactions: sulfamethoxazole [From Bactrim] Allergy (Verified 05/07/22 19:19) trimethoprim [From Bactrim] Allergy (Verified 05/07/22 19:19) vancomycin Allergy (Verified 05/07/22 19:19) Home Medications: Levothyroxine Sodium [Synthroid] 274 mcg PO DAILY 09/01/11 [History] Folic Acid 1 mg PO DAILY 09/02/14 [History] Secukinumab [Cosentyx (2 Syringes)] 300 mg IM UD 10/23/15 [History] Ergocalciferol (Vitamin D2) [Vitamin D] 1 tab PO WEEKLY 12/26/16 [History] Fluoxetine HCl 20 mg [Prozac 20 MG] 20 mg PO DAILY 12/26/16 [History] metHOTREXate sodium [Methotrexate] 8 tab PO WEEKLY 12/26/16 [History] Sitagliptin Phosphate 50 MG [Januvia 50 MG] 100 mg PO DAILY 09/27/18 [History] Hx Tetanus, Diphtheria Vaccination/Date Given: Yes Hx Influenza Vaccination/Date Given: No Hx Pneumococcal Vaccination/Date Given: No Immunizations Up to Date: Yes Travel Risk - International Travel Have you traveled outside of the country in past 3 weeks: No - Coronavirus Screening Are you exhibiting any of the following symptoms?: No Close contact with a COVID-19 positive Pt in past 14-21 Days: No - Vaccine Status Have you recieved a Covid-19 vaccination: 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[employer] - Vaccination Dates Date of 2cond Vaccination (if applicable): 02/08/21 - Review of Systems Constitutional: No Symptoms, No Fever, No Chills Eyes: No Symptoms Ears, Nose, & Throat: No Symptoms Respiratory: No Symptoms, No Cough, No Dyspnea Cardiac: No Symptoms, No Chest Pain, No Edema, No Syncope Abdominal/Gastrointestinal: No Symptoms, No Abdominal Pain, No Nausea, No Vomiting, No Diarrhea Genitourinary Symptoms: No Symptoms, No Dysuria Musculoskeletal: No Symptoms, No Back Pain, No Neck Pain Skin: No Symptoms, No Rash Neurological: No Symptoms, No Dizziness, No Focal Weakness, No Sensory Changes Psychological: No Symptoms Endocrine: No Symptoms Hematologic/Lymphatic: No Symptoms Immunological/Allergic: No Symptoms All Other Systems: Reviewed and Negative - Past Medical History Pertinent Past Medical History: Yes Neurological History: No Pertinent History ENT History: No Pertinent History Cardiac History: No Pertinent History Respiratory History: Asthma, Sleep Apnea Endocrine Medical History: Diabetes Type I, Hypothyroidism Musculoskeletal History: Arthritis, Rheumatoid Arthritis GI Medical History: No Pertinent History History: No Pertinent History Psycho-Social History: No Pertinent History, Anxiety Female Reproductive Disorders: No Pertinent History Other Medical History: PSORIASIS - Past Surgical History Past Surgical History: Yes Neuro Surgical History: No Pertinent History Cardiac: No Pertinent History Respiratory: No Pertinent History Gastrointestinal: No Pertinent History Genitourinary: No Pertinent History Musculoskeletal: No Pertinent History Female Surgical History: No Pertinent History Other Surgical History: 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 - Social History Smoking Status: Current every day smoker How long have you smoked: 20 yrs Exposure to second hand smoke: Yes Alcohol Use: None Drug Use: none Patient Lives Alone: No Significant Family History: diabetes - Female History Hx Last Menstrual Period: 1 week Hx Now: No - Nursing Vital Signs Nursing Vital Signs: Initial Vital Signs Temperature 97.1 F 05/07/22 19:05 Pulse Rate 105 H 05/07/22 19:05 Respiratory Rate 20 05/07/22 19:05 Blood Pressure 128/66 05/07/22 19:05 O2 Sat by Pulse Oximetry 95 05/07/22 19:05 Pain Scale Pain Intensity 2 - Physical Exam General Appearance: no apparent distress, alert Eye Exam: PERRL/EOMI, eyes nml inspection Ears, Nose, Throat Exam: normal ENT inspection, TMs normal, pharynx normal, moist mucous membranes Neck Exam: normal inspection, non-tender, supple, full range of motion Respiratory Exam: normal breath sounds, lungs clear, airway intact, No respiratory distress Cardiovascular Exam: regular rate/rhythm, normal heart sounds, normal peripheral pulses, other (Patient states she has a history of a murmur. However I am unable to appreciate a murmur today on this exam) Gastrointestinal/Abdomen Exam: soft, normal bowel sounds, No tenderness, No mass Back Exam: normal inspection, normal range of motion, No CVA tenderness, No vertebral tenderness Extremity Exam: normal inspection, normal range of motion, pelvis stable Neurologic Exam: alert, oriented x 3, cooperative, normal mood/affect, nml cerebellar function, nml station & gait, sensation nml, No motor deficits Skin Exam: normal color, warm, dry, No rash Lymphatic Exam: No adenopathy SpO2 Interpretation: normal SpO2: 94 O2 Delivery: Room Air - Course Nursing assessment & vital signs reviewed: Yes EKG Interpreted by Me: RATE (104), Sinus Tach, NORMAL AXIS, NORMAL INTERVALS - Radiology Exams Chest X-ray Interpretation: Interpreted by me (Normal heart lungs and bony thorax. Some bony degenerative changes. No acute findings) Ordered Tests: Active Orders 24 hr Category Date Time Status Bus Person STAT Care 05/07/22 19:33 Active EKG-ER Only STAT Care 05/07/22 19:32 Active IV Insertion STAT Care 05/07/22 19:32 Active Pulse Oximetry (ED) STAT Care 05/07/22 19:32 Active CHEST 1 VIEW (PORTABLE) Stat Exams 05/07/22 19:33 Taken CBC W DIFF Stat Lab 05/07/22 20:15 Completed CMP Stat Lab 05/07/22 20:15 Completed D-DIMER QUANTITATIVE Stat Lab 05/07/22 20:15 Completed HCG,QUALITATIVE URINE Stat Lab 05/07/22 20:15 Completed TROPONIN Q4H Lab 05/07/22 20:15 Completed TROPONIN Q4H Lab 05/07/22 22:55 Received TROPONIN Q4H Lab 05/08/22 03:45 Ordered Medication Summary Discontinued Medications Generic Name Dose Route Start Last Admin Trade Name Freq PRN Reason Stop Dose Admin Hydroxyzine HCl 50 mg 05/07/22 20:59 05/07/22 21:03 Hydroxyzine Hcl 100 Mg/2 Ml Vial IM 05/07/22 21:00 50 mg STAT ONE Administration Hydroxyzine HCl Confirm 05/07/22 21:01 Hydroxyzine Hcl 100 Mg/2 Ml Vial Administered 05/07/22 21:02 Dose 100 mg IM .STK-MED ONE Lab/Rad Data: Laboratory Result Diagrams 05/07/22 20:15 05/07/22 20:15 Laboratory Results 05/07/22 05/07/22 05/07/22 Range/Units 20:15 20:15 20:15 WBC (4.0-10.5) x10^3/uL RBC (4.1-5.4) x10^6/uL Hgb (12.0-16.0) g/dL Hct (35-47) % MCV (78-100) fL MCH (26-32) pg MCHC (32-36) g/dL RDW (11.5-14.0) % Plt Count (150-450) x10^3/uL MPV (7.5-11.0) fL Gran % (36.0-66.0) % Immature Gran % (Auto) (0.00-0.4) % Nucleat RBC Rel Count (0.00-0.1) % Eos # (Auto) (0-0.5) x10^3/uL Immature Gran # (Auto) (0.00-0.03) x10^3u/L Absolute Lymphs (auto) (1.0-4.6) x10^3/uL Absolute Monos (auto) (0.0-1.3) x10^3/uL Absolute Nucleated RBC (0.00-0.01) x10^3u/L Lymphocytes % (24.0-44.0) % Monocytes % (0.0-12.0) % Eosinophils % (0.00-5.0) % Basophils % (0.0-0.4) % Absolute Granulocytes (1.4-6.9) x10^3/uL Basophils # (0-0.4) x10^3/uL D-Dimer 0.41 (0.0-0.50) mg/L Sodium (137-145) mmol/L Potassium (3.5-5.1) mmol/L Chloride (98-107) mmol/L Carbon Dioxide (22-30) mmol/L Anion Gap (5-15) MEQ/L BUN (7-17) mg/dL Creatinine (0.52-1.04) mg/dL Estimated GFR ML/MIN Glucose (74-106) mg/dL Calcium (8.4-10.2) mg/dL Total Bilirubin (0.2-1.3) mg/dL AST (14-36) U/L ALT (0-35) U/L Alkaline Phosphatase (38-126) U/L Troponin I < 0.012 (0.000-0.034) ng/mL Serum Total Protein (6.3-8.2) g/dL Albumin (3.5-5.0) g/dL Urine HCG, Qual NEGATIVE (Negative) 05/07/22 05/07/22 Range/Units 20:15 20:15 WBC 9.2 (4.0-10.5) x10^3/uL RBC 4.46 (4.1-5.4) x10^6/uL Hgb 13.6 (12.0-16.0) g/dL Hct 43.9 (35-47) % MCV 98.4 (78-100) fL MCH 30.5 (26-32) pg MCHC 31.0 L (32-36) g/dL RDW 12.6 (11.5-14.0) % Plt Count 218 (150-450) x10^3/uL MPV 9.6 (7.5-11.0) fL Gran % 83.5 H (36.0-66.0) % Immature Gran % (Auto) 1.0 H (0.00-0.4) % Nucleat RBC Rel Count 0.0 (0.00-0.1) % Eos # (Auto) 0.11 (0-0.5) x10^3/uL Immature Gran # (Auto) 0.09 H (0.00-0.03) x10^3u/L Absolute Lymphs (auto) 1.05 (1.0-4.6) x10^3/uL Absolute Monos (auto) 0.17 (0.0-1.3) x10^3/uL Absolute Nucleated RBC 0.00 (0.00-0.01) x10^3u/L Lymphocytes % 11.4 L (24.0-44.0) % Monocytes % 1.8 (0.0-12.0) % Eosinophils % 1.2 (0.00-5.0) % Basophils % 1.1 (0.0-0.4) % Absolute Granulocytes 7.72 H (1.4-6.9) x10^3/uL Basophils # 0.10 (0-0.4) x10^3/uL D-Dimer (0.0-0.50) mg/L Sodium 136 L (137-145) mmol/L Potassium 4.0 (3.5-5.1) mmol/L Chloride 101 (98-107) mmol/L Carbon Dioxide 29 (22-30) mmol/L Anion Gap 8.7 (5-15) MEQ/L BUN 8 (7-17) mg/dL Creatinine 0.86 (0.52-1.04) mg/dL Estimated GFR > 60.0 ML/MIN Glucose 222 H (74-106) mg/dL Calcium 8.2 L (8.4-10.2) mg/dL Total Bilirubin 0.90 (0.2-1.3) mg/dL AST 28 (14-36) U/L ALT 26 (0-35) U/L Alkaline Phosphatase 76 (38-126) U/L Troponin I (0.000-0.034) ng/mL Serum Total Protein 7.8 (6.3-8.2) g/dL Albumin 4.0 (3.5-5.0) g/dL Urine HCG, Qual (Negative) - Progress Progress: improved Progress Note: Patient is a 36-year-old female presents emergency department for evaluation of heart palpitations. Patient has a history of psoriasis. Patient took a dose of prednisone to treat a psoriasis flareup. Approximately 2 to 3 hours later patient symptoms occurred. Patient observed that her heart rate was elevated became alarmed and her heart rate increased about 120-130. Upon arrival patient was called. Heart rate was 10 5-1 10. Physical exam reveals some skin changes consistent with psoriasis. Physical exam otherwise negative. Patient has a BMI of 58.4. Patient denies any other cardiac risk factors. Test ordered include EKG, chest x-ray, CBC, CMP, D-dimer, hCG G, troponin. Results of these tests were used for medical decision-making. Patient complained of pruritus due to her psoriasis. Patient received a dose of hydroxyzine. Toxicity and help him prove her pruritus. Patient reassessed. Symptoms significantly improved. Troponin negative x2. No indication for further work-up. Will discharge home. Patient agrees to follow- up with her primary care doctor within 48 hours for evaluation. Level of EM service provided was moderate. Complexity of problem addressed was moderate. Complexity of data reviewed and analyzed was moderate. Risks of complication, morbidity/mortality is moderate. Patient was an independent historian. Patient provided adequate information for HPI. Portions of this note were created with voice recognition technology. There may be grammatical, spelling, punctuation or sound alike errors 05/07/22 22:25 Counseled pt/family regarding: lab results, diagnosis, need for follow-up, rad results - Departure Departure Disposition: Home Clinical Impression: Heart palpitations, Hyperglycemia Condition: Stable Critical Care Time: No Referrals: CASSIE GUNN, TRAVEL ACCOMMODATIONS RATER [Primary Care Provider] - Follow up/PCP as directed
[2022-05-07 20:42] LABS: ALKALINE PHOSPHATASE 76 U/L (38-126); ANION GAP 8.7 MEQ/L (5-15); BLOOD UREA NITROGEN 8 mg/dL (7-17); CHLORIDE 101 mmol/L (98-107); Calcium 8.2 mg/dL (8.4-10.2); Carbon Dioxide 29 mmol/L (22-30); Creatinine 1 0.86 mg/dL (0.52-1.04); EST GLOMERULAR FILTRATION RATE > 60.0 ML/MIN; Glucose 222 mg/dL (74-106); SGOT/AST 28 U/L (14-36); SGPT/ALT 26 U/L (0-35); SODIUM 136 mmol/L (137-145); Total Protein 7.8 g/dL (6.3-8.2)
[2022-05-07] MEDS ORDERED: VISTARIL 100MG/2ML IM ONE ×2 (20:59→21:01)
[2022-05-07 22:19] VITALS: O2SAT 94
[2022-05-07 23:37] VITALS: BP 109/71; PULSE 86
--- NOTE | 2022-05-08 08:37 | XRAY ---
Indication: Palpitations. Comparison: April 29, 2022 Portable chest again demonstrates normal heart and lungs. Bony thorax intact again with mild degenerative changes. No new/acute findings.
== END 2022-05-07 23:53 | disposition home or self-care (01) ==
LOC: ED 19:04
DX: R00.2 Palpitations (principal); E10.65 Type 1 diabetes mellitus with hyperglycemia; Z79.899 Other long term (current) drug therapy; Z79.52 Long term (current) use of systemic steroids; Z72.0 Tobacco use
CPT/HCPCS: 36415; 71045; 80053; 81025; 84484; 85025; 85379; 93005; 93041; 94760; 96372; 99284; J3410

== ENCOUNTER 2022-06-27 10:04 | Emergency (ER) | payer MEDICARE ==
--- NOTE | 2022-06-27 10:09 | ERPHSYRPT ---
- History of Present Illness Time Seen by Provider: 06/27/22 10:09 Source: patient, family Exam Limitations: no limitations Physician History: This is a 36-year-old morbidly obese diabetic white female who was seen recently in a different hospital emergency department and given a prescription for cefpodoxime. After a single dose itching, rash, swelling that is generalized. She is not wheezing and she is not short of breath. She has no chest pain. She has no nausea vomiting or diarrhea. Patient did take Benadryl last night. And has multiple medical problems including morbid obesity, insulin-dependent diabetes, hypothyroidism, asthma, psoriasis, rheumatoid arthritis and sleep apnea. Timing/Duration: yesterday Severity: moderate Modifying Factors: Improves With: medication Associated Symptoms: denies symptoms Allergies/Adverse Reactions: cefpodoxime Allergy (Intermediate, Verified 06/27/22 10:16) red, itchy rash sulfamethoxazole [From Bactrim] Allergy (Verified 05/07/22 19:19) trimethoprim [From Bactrim] Allergy (Verified 05/07/22 19:19) vancomycin Allergy (Verified 05/07/22 19:19) Home Medications: Levothyroxine Sodium [Synthroid] 274 mcg PO DAILY 09/01/11 [History] Folic Acid 1 mg PO DAILY 09/02/14 [History] Secukinumab [Cosentyx (2 Syringes)] 300 mg IM UD 10/23/15 [History] Ergocalciferol (Vitamin D2) [Vitamin D] 1 tab PO WEEKLY 12/26/16 [History] Semaglutide [Rybelsus] 3 mg PO DAILY 06/27/22 [History] Hx Tetanus, Diphtheria Vaccination/Date Given: Yes Hx Influenza Vaccination/Date Given: No Hx Pneumococcal Vaccination/Date Given: No Travel Risk - International Travel Have you traveled outside of the country in past 3 weeks: No - Coronavirus Screening Are you exhibiting any of the following symptoms?: No Close contact with a COVID-19 positive Pt in past 14-21 Days: No - Vaccine Status Have you recieved a Covid-19 vaccination: 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[employer] - Vaccination Dates Date of 2cond Vaccination (if applicable): 02/08/21 - Review of Systems Constitutional: No Symptoms Eyes: No Symptoms Ears, Nose, & Throat: No Symptoms Respiratory: No Symptoms, No Stridor, No Wheezing Cardiac: No Symptoms Abdominal/Gastrointestinal: No Symptoms Genitourinary Symptoms: No Symptoms Musculoskeletal: No Symptoms Skin: Rash (Generalized hives) Psychological: No Symptoms Endocrine: No Symptoms Hematologic/Lymphatic: No Symptoms Immunological/Allergic: No Symptoms All Other Systems: Reviewed and Negative - Past Medical History Pertinent Past Medical History: Yes Neurological History: No Pertinent History ENT History: No Pertinent History Cardiac History: No Pertinent History Respiratory History: Asthma, Sleep Apnea Endocrine Medical History: Diabetes Type I, Hypothyroidism Musculoskeletal History: Arthritis, Rheumatoid Arthritis GI Medical History: No Pertinent History History: No Pertinent History Psycho-Social History: No Pertinent History, Anxiety Female Reproductive Disorders: No Pertinent History Other Medical History: PSORIASIS - Past Surgical History Past Surgical History: Yes Neuro Surgical History: No Pertinent History Cardiac: No Pertinent History Respiratory: No Pertinent History Gastrointestinal: No Pertinent History Genitourinary: No Pertinent History Musculoskeletal: No Pertinent History Female Surgical History: No Pertinent History Other Surgical History: 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 - Social History Smoking Status: Current every day smoker How long have you smoked: 20 yrs Exposure to second hand smoke: Yes Alcohol Use: None Drug Use: none Patient Lives Alone: No Significant Family History: diabetes - Nursing Vital Signs Nursing Vital Signs: Initial Vital Signs Temperature 97.2 F 06/27/22 10:10 Pulse Rate 107 H 06/27/22 10:10 Respiratory Rate 22 06/27/22 10:10 Blood Pressure 127/79 06/27/22 10:10 O2 Sat by Pulse Oximetry 98 06/27/22 10:10 Pain Scale Pain Intensity 0 - Physical Exam General Appearance: no apparent distress, alert, anxiety, obese Eye Exam: PERRL/EOMI, eyes nml inspection Ears, Nose, Throat Exam: other (Mild puffiness bilateral cheeks that are slightly red) Neck Exam: normal inspection, non-tender, supple, full range of motion, other Respiratory Exam: normal breath sounds, lungs clear, airway intact, No chest tenderness, No respiratory distress, No wheezing (No stridor), No stridor Cardiovascular Exam: regular rate/rhythm, normal heart sounds, normal peripheral pulses Gastrointestinal/Abdomen Exam: soft, normal bowel sounds, No tenderness Pelvic Exam: not done Rectal Exam: not done Back Exam: normal inspection, normal range of motion, No CVA tenderness, No vertebral tenderness Extremity Exam: normal inspection, normal range of motion, pelvis stable Neurologic Exam: alert, oriented x 3, 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, 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, normal mood/affect, nml cerebellar function, nml station & gait, sensation nml Skin Exam: rash (Generalized rash) Lymphatic Exam: No adenopathy SpO2 Interpretation: normal O2 Delivery: Room Air - Course Nursing assessment & vital signs reviewed: Yes Ordered Tests: Medication Summary Discontinued Medications Generic Name Dose Route Start Last Admin Trade Name Ryan PRN Reason Stop Dose Admin Methylprednisolone Sodium 0 mg 06/27/22 10:46 Succinate 125 mg/ Sterile IM 06/27/22 10:47 Water 2 ml STAT ONE Diphenhydramine HCl 50 mg 06/27/22 10:46 Diphenhydramine Hcl 25 Mg Capsule PO 06/27/22 10:47 STAT ONE Famotidine 40 mg 06/27/22 10:46 Famotidine 20 Mg Tablet PO 06/27/22 10:47 STAT ONE - Progress Progress: improved Progress Note: 06/27/22 11:01 This patient's issue is of low to moderate complexity. Patient has multiple medical issues that are significant. They do have an effect on her treatment and treatment plan at discharge. Patient has no allergic reaction to the newly prescribed cefpodoxime antibiotic. Discharge plan is to stop this antibiotic. Use the prednisone, Benadryl 25 mg orally x4 days, and the Pepcid that is prescribed for you. Return to the emergency department if symptoms worsen. Follow-up with your primary care physician for persistent symptoms. Counseled pt/family regarding: diagnosis, need for follow-up Medical Desision Making - Discussion of managment Agreed on:: Treatment plan, need for follow-up - Diagnostic Testing Diagnostic test were ordered, analyzed, and reviewed by me: Yes - Risk of complications Low Risk: Low risk of morbidity from additional dx testing or treatment - Departure Departure Disposition: Home Clinical Impression: Allergic reaction caused by a drug Condition: Stable Critical Care Time: No Referrals: CASSIE GUNN CRIME DATA SPECIALIST [Primary Care Provider] - Follow up/PCP as directed Additional Instructions: Drink plenty fluids. Take Benadryl 25 mg orally 3 times a day for the next 5 days. Take your prednisone and Pepcid as prescribed. Stop your cefpodoxime antibiotic. Follow-up with your primary prescribing provider for further evaluation management. Monitor your blood sugar levels closely when taking the prednisone. Prescriptions: Prednisone 10 mg [Deltasone 10 mg] 10 mg PO TID #12 tablet Famotidine 20 mg [Pepcid 20 MG] 20 mg PO DAILY #10 tablet
[2022-06-27 10:16] VITALS: BP 127/79; PULSE 107; O2SAT 100
[2022-06-27] MEDS ORDERED: solu-MEDROL 125 MG, Sterile H2O 10 ml 2 ML IM ONE ×2 (10:46)
[2022-06-27] MEDS ORDERED: BENADRYL 25 MG CAPSULE PO ONE (10:46)
[2022-06-27] MEDS ORDERED: Pepcid 20 MG PO ONE (10:46)
[2022-06-27] MEDS ORDERED: Pepcid 20 MG ONE (10:53)
[2022-06-27] MEDS ORDERED: BENADRYL 25 MG CAPSULE ONE (10:53)
[2022-06-27] MEDS ORDERED: solu-MEDROL ONE (10:53)
[2022-06-27] MEDS ORDERED: Sterile H2O 10 ml IJ ONE (10:53)
== END 2022-06-27 11:11 | disposition home or self-care (01) ==
LOC: ED 10:04
DX: L27.0 Generalized skin eruption due to drugs and medicaments taken internally (principal); T36.1X5A Adverse effect of cephalosporins and other beta-lactam antibiotics, initial encounter; R60.0 Localized edema; E10.9 Type 1 diabetes mellitus without complications; Z79.4 Long term (current) use of insulin; Z79.85 Long-term (current) use of injectable non-insulin antidiabetic drugs; Z79.52 Long term (current) use of systemic steroids; Z79.899 Other long term (current) drug therapy; Z72.0 Tobacco use
CPT/HCPCS: 96372; 99283; J2930; A9270-GY

== ENCOUNTER 2022-07-02 21:01 | Emergency (ER) | payer MEDICARE ==
[2022-07-02 21:32] VITALS: BP 140/88
--- NOTE | 2022-07-02 21:41 | ERPHSYRPT ---
- History of Present Illness Time Seen by Provider: 07/02/22 21:43 Source: patient Exam Limitations: no limitations Patient Subjective Stated Complaint: Pt reports "yesterday I had some red stuff in my stool and I thought it was the red bourne peppers I ate the day before. I also am having cramping in my lower stomach but I am supposed to start my menstrual cycle soon." Triage Nursing Assessment: Pt alert and oriented x3. No apparent respiratory distress. Ambulated to cot without difficulty. Bowel sounds active in all four quads. Abdomen soft, nontender, round. Physician History: Patient 36-year-old female presents to our ED for evaluation of mucousy red stools. Symptoms started yesterday. Patient thought it was due to eating red bourne peppers. Patient had another bout today. Patient otherwise asymptomatic. Patient admits to experiencing intermittent crampy sensation in her pelvis however these cramps are the same as her usual cramps prior to her menstruation. Patient is currently starting her menstrual cycle. Patient otherwise doing well. No nausea or vomiting. No diarrhea. No rash. Patient has a history of hemorrhoids however she does not have any rectal pain at this time. Patient voices no other complaints or concerns at this time. Portions of this note were created with voice recognition technology. There may be grammatical, spelling, punctuation or sound alike errors Timing/Duration: yesterday Severity: mild Associated Symptoms: other (Intermittent cramping which patient attributes to her menstrual period) Allergies/Adverse Reactions: cefpodoxime Allergy (Intermediate, Verified 06/27/22 10:16) red, itchy rash sulfamethoxazole [From Bactrim] Allergy (Verified 05/07/22 19:19) trimethoprim [From Bactrim] Allergy (Verified 05/07/22 19:19) vancomycin Allergy (Verified 05/07/22 19:19) Home Medications: Levothyroxine Sodium [Synthroid] 274 mcg PO DAILY 09/01/11 [History] Folic Acid 1 mg PO DAILY 09/02/14 [History] Secukinumab [Cosentyx (2 Syringes)] 300 mg IM UD 10/23/15 [History] Ergocalciferol (Vitamin D2) [Vitamin D] 1 tab PO WEEKLY 12/26/16 [History] Semaglutide [Rybelsus] 3 mg PO DAILY 06/27/22 [History] Hx Tetanus, Diphtheria Vaccination/Date Given: Yes Hx Influenza Vaccination/Date Given: No Hx Pneumococcal Vaccination/Date Given: No Travel Risk - International Travel Have you traveled outside of the country in past 3 weeks: No - Coronavirus Screening Are you exhibiting any of the following symptoms?: No Close contact with a COVID-19 positive Pt in past 14-21 Days: No - Vaccine Status Have you recieved a Covid-19 vaccination: Yes 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[employer] - Vaccination Dates Date of 2cond Vaccination (if applicable): 02/08/21 - Review of Systems Constitutional: No Symptoms, No Fever, No Chills Eyes: No Symptoms Ears, Nose, & Throat: No Symptoms Respiratory: No Symptoms, No Cough, No Dyspnea Cardiac: No Symptoms, No Chest Pain, No Edema, No Syncope Abdominal/Gastrointestinal: No Symptoms, No Abdominal Pain, No Nausea, No Vomiting, No Diarrhea Genitourinary Symptoms: No Symptoms, No Dysuria Musculoskeletal: No Symptoms, No Back Pain, No Neck Pain Skin: No Symptoms, No Rash Neurological: No Symptoms, No Dizziness, No Focal Weakness, No Sensory Changes Psychological: No Symptoms Endocrine: No Symptoms Hematologic/Lymphatic: No Symptoms Immunological/Allergic: No Symptoms All Other Systems: Reviewed and Negative - Past Medical History Pertinent Past Medical History: Yes Neurological History: No Pertinent History ENT History: No Pertinent History Cardiac History: No Pertinent History Respiratory History: Asthma, Sleep Apnea Endocrine Medical History: Diabetes Type I, Hypothyroidism Musculoskeletal History: Arthritis, Rheumatoid Arthritis GI Medical History: No Pertinent History History: No Pertinent History Psycho-Social History: No Pertinent History, Anxiety Female Reproductive Disorders: No Pertinent History Other Medical History: PSORIASIS - Past Surgical History Past Surgical History: Yes Neuro Surgical History: No Pertinent History Cardiac: No Pertinent History Respiratory: No Pertinent History Gastrointestinal: No Pertinent History Genitourinary: No Pertinent History Musculoskeletal: No Pertinent History Female Surgical History: No Pertinent History Other Surgical History: 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 - Social History Smoking Status: Current every day smoker How long have you smoked: 20 yrs Exposure to second hand smoke: Yes Alcohol Use: None Drug Use: none Patient Lives Alone: No Significant Family History: diabetes - Female History Hx Last Menstrual Period: 06/04/22 Hx Now: No - Nursing Vital Signs Nursing Vital Signs: Initial Vital Signs Temperature 97.8 F 07/02/22 21:25 Pulse Rate 101 H 07/02/22 21:25 Respiratory Rate 18 07/02/22 21:25 Blood Pressure 140/88 07/02/22 21:25 O2 Sat by Pulse Oximetry 100 07/02/22 21:25 Pain Scale Pain Intensity 1 - Physical Exam General Appearance: no apparent distress, alert Eye Exam: PERRL/EOMI, eyes nml inspection Ears, Nose, Throat Exam: normal ENT inspection, moist mucous membranes Neck Exam: normal inspection, supple, full range of motion Respiratory Exam: normal breath sounds, lungs clear, airway intact, No respiratory distress Cardiovascular Exam: regular rate/rhythm, normal heart sounds, normal peripheral pulses Gastrointestinal/Abdomen Exam: soft, normal bowel sounds, No tenderness, No mass Back Exam: normal inspection, normal range of motion, No CVA tenderness, No vertebral tenderness Extremity Exam: normal inspection, normal range of motion, pelvis stable Neurologic Exam: alert, oriented x 3, cooperative, normal mood/affect, sensation nml, No motor deficits Skin Exam: normal color, warm, dry, other (Skin changes due to history of psoriasis), No rash Lymphatic Exam: No adenopathy SpO2 Interpretation: normal SpO2: 100 O2 Delivery: Room Air - Course Nursing assessment & vital signs reviewed: Yes - Progress Progress: improved Progress Note: 36-year-old female presents to our ED with 2-day history of slightly red mucousy stools. Some vague intermittent pelvic cramping which patient attributes to her menstrual period. Patient not having any symptoms at this time. Patient advised that she will likely require colonoscopy. Patient will follow-up with her primary care doctor to obtain his colonoscopy. No work-up indicated at this time. Physical exam is nonremarkable. Complexity of problem addressed is low. Acute uncomplicated. Complexity of data reviewed and analyzed is none. Risk of complication and or morbidity/mortality of patient management is minim al. Patient will be discharged home. She agrees to follow-up with a primary care doctor within 48 hours for reevaluation and likely to establish outpatient colonoscopy. 07/02/22 21:48 Counseled pt/family regarding: diagnosis, need for follow-up - Departure Departure Disposition: Home Clinical Impression: Rectal bleeding Condition: Stable Critical Care Time: No Referrals: CASSIE GUNN, APPRENTICE PAINTER [employer] [Primary Care Provider] - Follow up/PCP as directed Additional Instructions: Discharge/Care Plan MISTI FELIX was seen on 07/02/22 in the Emergency Room. The patient was counseled regarding Diagnosis,Lab results, Imaging studies, need for follow up and when to return to the Emergency Room. Prescriptions given: Discharge Note I have spoken with the patient and/or caregivers. I have explained the patient's condition, diagnosis and treatment plan based on the information available to me at this time. I have answered the patient's and/or caregiver's questions and addressed any concerns. The patient and/or caregivers have as good understanding of the patient's diagnosis, condition and treatment plan as can be expected at this point. The vital signs have been stable. The patient's condition is stable and appropriate for discharge from the emergency department. The patient will pursue further outpatient evaluation with the primary care physician or other designated or consulting physician as outlined in the discharge instructions. The patient and/or caregivers are agreeable to this plan of care and follow-up instructions have been explained in detail. The patient and/or caregivers have received these instruction. The patient/and or caregivers are aware that any significant change in condition or worsening of symptoms should prompt an immediate return to this or the closest emergency department or call 911.
[2022-07-02 21:45] VITALS: PULSE 100
[2022-07-02 21:48] VITALS: O2SAT 100
== END 2022-07-02 21:49 | disposition home or self-care (01) ==
LOC: ED 21:01
DX: K62.5 Hemorrhage of anus and rectum (principal); E10.9 Type 1 diabetes mellitus without complications; Z79.85 Long-term (current) use of injectable non-insulin antidiabetic drugs; Z79.899 Other long term (current) drug therapy; Z72.0 Tobacco use
CPT/HCPCS: 99281

== ENCOUNTER 2022-10-13 22:03 | Emergency (ER) | payer MEDICARE ==
[2022-10-13] MEDS ORDERED: BABY ASPIRIN 81 MG CHEW PO ONE (22:31)
[2022-10-13 22:52] LABS: Absolute Neutrophil Ct (ANC) 7.48 x10^3/uL (1.4-6.9); BASOPHIL % 1.2 % (0.0-0.4); Basophil (Absolute #) 0.14 x10^3/uL (0-0.4); Eosinophil % 4.4 % (0.00-5.0); Eosinophil (Absolute #) 0.51 x10^3/uL (0-0.5); Hematocrit 46.2 % (35-47); IMMATURE GRAN # 0.21 x10^3u/L (0.00-0.03); IMMATURE GRAN % 1.8 % (0.00-0.4); Lymphocyte (Absolute #) 2.36 x10^3/uL (1.0-4.6); Lymphocytes % 20.5 % (24.0-44.0); Mean Cell Volume 95.3 fL (78-100); Mean Corpuscular Hemoglobin 30.9 pg (26-32); Mean Corpuscular Hgb Concent. 32.5 g/dL (32-36); Monocyte (Absolute #) 0.83 x10^3/uL (0.0-1.3); Monocytes % 7.2 % (0.0-12.0); Neutrophil % 64.9 % (36.0-66.0); Platelet Count 215 x10^3/uL (150-450); Red Blood Count 4.85 x10^6/uL (4.1-5.4); Red Cell Distribution Width 13.2 % (11.5-14.0); White Blood Count 11.5 x10^3/uL (4.0-10.5)
[2022-10-13 23:09] LABS: ALBUMIN 4.1 g/dL (3.5-5.0); ALKALINE PHOSPHATASE 105 U/L (38-126); ANION GAP 15.2 MEQ/L (5-15); BLOOD UREA NITROGEN 13 mg/dL (7-17); CHLORIDE 96 mmol/L (98-107); CK-Creatinine Phosphokinase 67 U/L (30-135); Calcium 8.5 mg/dL (8.4-10.2); Carbon Dioxide 27 mmol/L (22-30); Creatinine 1 0.73 mg/dL (0.52-1.04); EST GLOMERULAR FILTRATION RATE > 60.0 ML/MIN; Glucose 231 mg/dL (74-106); SGOT/AST 35 U/L (14-36); SGPT/ALT 29 U/L (0-35); SODIUM 133 mmol/L (137-145); Total Protein 8.3 g/dL (6.3-8.2)
[2022-10-13 23:13] LABS: HCG SERUM TEST NEGATIVE (NEGATIVE)
[2022-10-13] MEDS ORDERED: GI COCKTAIL 45 ML (Maalox/Lidocaine) PO ONE (23:19)
[2022-10-13] MEDS ORDERED: PROTONIX 40 MG IV IV ONE ×2 (23:19→23:22)
[2022-10-13] MEDS ORDERED: MAALOX ES 30 ML UNIT DOSE ONE (23:22)
[2022-10-13] MEDS ORDERED: XYLOCAINE VISCOUS 2% 15 ML CUP ONE (23:22)
[2022-10-13 23:43] VITALS: BP 117/81; PULSE 101; O2SAT 96
--- NOTE | 2022-10-14 00:02 | ERPHSYRPT ---
- History of Present Illness Time Seen by Provider: 10/13/22 22:05 Historian: patient Exam Limitations: no limitations Patient Subjective Stated Complaint: pt reports chest pain and right hand numbness beginning this evening. pt reports that pain is intermittent in nature. Triage Nursing Assessment: pt is aox3, pupils perrl, afebrile, resps easy and non labored, radial pulses strong and equal, cap refill < 3 seconds, pt skin pink warm dry. Physician History: 36 years old morbidly obese female with history of hypertension, diabetes mellitus, tobacco abuse, GERD presented in the ER with chief complaint of substernal dull aching discomfort off and on since yesterday with increased burping. Patient denies any radiation of pain, unable to associate any aggravating or relieving factors. Denies any palpitations or shortness of breath associated with it. Reports having similar symptoms couple of months ago and has seen cardiology with negative work-up including echocardiogram. Patient currently rate 2/10 intensity dull aching pain. Denies any cough fever or chills. Timing/Duration: yesterday, gradual onset, improved Activities at Onset: rest Quality: aching, dullness Location: substernal Chest Pain Radiation: no radiation Severity of Pain-Max: moderate Severity of Pain-Current: mild Modifying Factors: Improves With: nothing Associated Symptoms: nausea, heartburn Prior Chest Pain/Cardiac Workup: echocardiography Nitro Today/Relief: no nitro taken today Aspirin Treatment Today: no aspirin today Allergies/Adverse Reactions: cefpodoxime Allergy (Intermediate, Verified 10/13/22 22:21) red, itchy rash sulfamethoxazole [From Bactrim] Allergy (Verified 10/13/22 22:21) trimethoprim [From Bactrim] Allergy (Verified 10/13/22 22:21) vancomycin Allergy (Verified 10/13/22 22:21) Home Medications: Levothyroxine Sodium [Synthroid] 274 mcg PO DAILY 09/01/11 [History] Folic Acid 1 mg PO DAILY 09/02/14 [History] Secukinumab [Cosentyx (2 Syringes)] 300 mg IM UD 10/23/15 [History] Ergocalciferol (Vitamin D2) [Vitamin D] 1 tab PO WEEKLY 12/26/16 [History] Semaglutide [Rybelsus] 7 mg PO DAILY 06/27/22 [History] Hx Tetanus, Diphtheria Vaccination/Date Given: Yes Hx Influenza Vaccination/Date Given: No Hx Pneumococcal Vaccination/Date Given: No Travel Risk - International Travel Have you traveled outside of the country in past 3 weeks: No - Coronavirus Screening Are you exhibiting any of the following symptoms?: No Close contact with a COVID-19 positive Pt in past 14-21 Days: No - Vaccine Status Have you recieved a Covid-19 vaccination: 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: [employer] - Vaccination Dates Date of 2cond Vaccination (if applicable): 02/08/21 - Review of Systems Constitutional: No Symptoms Eyes: No Symptoms Ears, Nose, & Throat: No Symptoms Respiratory: No Symptoms Cardiac: Chest Pain Abdominal/Gastrointestinal: No Symptoms Genitourinary Symptoms: No Symptoms Musculoskeletal: No Symptoms Neurological: No Symptoms Psychological: No Symptoms Endocrine: No Symptoms - Past Medical History Pertinent Past Medical History: Yes Neurological History: No Pertinent History ENT History: No Pertinent History Cardiac History: No Pertinent History Respiratory History: Asthma, Sleep Apnea Endocrine Medical History: Diabetes Type I, Hypothyroidism Musculoskeletal History: Arthritis, Rheumatoid Arthritis GI Medical History: No Pertinent History History: No Pertinent History Psycho-Social History: No Pertinent History, Anxiety Female Reproductive Disorders: No Pertinent History Other Medical History: PSORIASIS - Past Surgical History Past Surgical History: Yes Neuro Surgical History: No Pertinent History Cardiac: No Pertinent History Respiratory: No Pertinent History Gastrointestinal: No Pertinent History Genitourinary: No Pertinent History Musculoskeletal: No Pertinent History Female Surgical History: No Pertinent History Other Surgical History: 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 - Social History Smoking Status: Current every day smoker How long have you smoked: 20 yrs Exposure to second hand smoke: Yes Alcohol Use: None Drug Use: none Patient Lives Alone: No Significant Family History: diabetes - Female History Hx Last Menstrual Period: 10/13/22 Hx Now: (unkn) - Nursing Vital Signs Nursing Vital Signs: Initial Vital Signs Pulse Rate 99 H 10/13/22 22:04 Respiratory Rate 20 10/13/22 22:04 Blood Pressure 153/88 10/13/22 22:04 O2 Sat by Pulse Oximetry 99 10/13/22 22:04 Pain Scale Pain Intensity 5 - Physical Exam General Appearance: no apparent distress, alert Eye Exam: PERRL/EOMI Ears, Nose, Throat Exam: normal ENT inspection Neck Exam: normal inspection, supple, full range of motion Respiratory Exam: normal breath sounds, lungs clear Cardiovascular Exam: regular rate/rhythm, normal heart sounds Gastrointestinal/Abdomen Exam: soft, normal bowel sounds, No tenderness Back Exam: normal inspection Extremity Exam: normal range of motion Neurologic Exam: alert, oriented x 3, cooperative Skin Exam: normal color SpO2 Interpretation: normal SpO2: 96 O2 Delivery: Room Air - Course EKG Interpreted by Me: RATE ([id number]), Sinus Rhythm, NORMAL AXIS, NORMAL INTERVALS, Q-wave, Non-specific ST Changes Ordered Tests: Active Orders 24 hr Category Date Time Status Client Technical Support Associate STAT Care 10/13/22 22:31 Active EKG-ER Only STAT Care 10/13/22 22:31 Active IV Insertion STAT Care 10/13/22 22:31 Active CHEST 1 VIEW (PORTABLE) Stat Exams 10/13/22 22:31 Ordered CBC W DIFF Stat Lab 10/13/22 22:49 Completed CK-Creatinine Phosphokinase Stat Lab 10/13/22 22:49 Completed CMP Stat Lab 10/13/22 22:49 Completed HCG QUALITATIVE, SERUM Stat Lab 10/13/22 22:49 Completed NT PRO BNPII Stat Lab 10/13/22 22:49 Completed TROPONIN Q4H Lab 10/13/22 22:49 Completed Medication Summary Discontinued Medications Generic Name Dose Route Start Last Admin Trade Name Freq PRN Reason Stop Dose Admin Al Hydrox/Mg Hydrox/Simethicone Confirm 10/13/22 23:22 Mag Hydrox/Al Hydrox/Simeth 30 Ml Udcup Administered 10/13/22 23:23 Dose 30 ml .ROUTE .STK-MED ONE Aspirin 324 mg 10/13/22 22:31 10/13/22 22:56 Aspirin 81 Mg Tab.Chew PO 10/13/22 22:32 324 mg STAT ONE Administration Lidocaine HCl Confirm 10/13/22 23:22 Lidocaine Hcl 2% Viscous 15 Ml Udcup Administered 10/13/22 23:23 Dose 15 ml .ROUTE .STK-MED ONE Magnesium Hydroxide 45 ml 10/13/22 23:19 10/13/22 23:26 Mag Hydrx/Alum Hyd/Simeth/Lido 45 Ml Bottle PO 10/13/22 23:20 45 ml STAT ONE Administration Pantoprazole Sodium 40 mg 10/13/22 23:19 10/13/22 23:26 Pantoprazole 40 Mg Vial IV 10/13/22 23:20 40 mg STAT ONE Administration Pantoprazole Sodium Confirm 10/13/22 23:22 Pantoprazole 40 Mg Vial Administered 10/13/22 23:23 Dose 40 mg IV .[facility]-MED ONE Lab/Rad Data: Laboratory Result Diagrams 10/13/22 22:49 10/13/22 22:49 Laboratory Results 10/13/22 10/13/22 10/13/22 Range/Units 22:49 22:49 22:49 WBC (4.0-10.5) x10^3/uL RBC (4.1-5.4) x10^6/uL Hgb (12.0-16.0) g/dL Hct (35-47) % MCV (78-100) fL MCH (26-32) pg MCHC (32-36) g/dL RDW (11.5-14.0) % Plt Count (150-450) x10^3/uL MPV (7.5-11.0) fL Gran % (36.0-66.0) % Immature Gran % (Auto) (0.00-0.4) % Nucleat RBC Rel Count (0.00-0.1) % Eos # (Auto) (0-0.5) x10^3/uL Immature Gran # (Auto) (0.00-0.03) x10^3u/L Absolute Lymphs (auto) (1.0-4.6) x10^3/uL Absolute Monos (auto) (0.0-1.3) x10^3/uL Absolute Nucleated RBC (0.00-0.01) x10^3u/L Lymphocytes % (24.0-44.0) % Monocytes % (0.0-12.0) % Eosinophils % (0.00-5.0) % Basophils % (0.0-0.4) % Absolute Granulocytes (1.4-6.9) x10^3/uL Basophils # (0-0.4) x10^3/uL Sodium (137-145) mmol/L Potassium (3.5-5.1) mmol/L Chloride (98-107) mmol/L Carbon Dioxide (22-30) mmol/L Anion Gap (5-15) MEQ/L BUN (7-17) mg/dL Creatinine (0.52-1.04) mg/dL Estimated GFR ML/MIN Glucose (74-106) mg/dL Calcium (8.4-10.2) mg/dL Total Bilirubin (0.2-1.3) mg/dL AST (14-36) U/L ALT (0-35) U/L Alkaline Phosphatase (38-126) U/L Creatine Kinase (30-135) U/L Troponin I < 0.012 (0.000-0.034) ng/mL NT-Pro-B Natriuret Pep < 20.0 (<300) pg/mL Serum Total Protein (6.3-8.2) g/dL Albumin (3.5-5.0) g/dL Serum HCG, Qual NEGATIVE (NEGATIVE) 10/13/22 10/13/22 Range/Units 22:49 22:49 WBC 11.5 H (4.0-10.5) x10^3/uL RBC 4.85 (4.1-5.4) x10^6/uL Hgb 15.0 (12.0-16.0) g/dL Hct 46.2 (35-47) % MCV 95.3 (78-100) fL MCH 30.9 (26-32) pg MCHC 32.5 (32-36) g/dL RDW 13.2 (11.5-14.0) % Plt Count 215 (150-450) x10^3/uL MPV 10.0 (7.5-11.0) fL Gran % 64.9 (36.0-66.0) % Immature Gran % (Auto) 1.8 H (0.00-0.4) % Nucleat RBC Rel Count 0.0 (0.00-0.1) % Eos # (Auto) 0.51 H (0-0.5) x10^3/uL Immature Gran # (Auto) 0.21 H (0.00-0.03) x10^3u/L Absolute Lymphs (auto) 2.36 (1.0-4.6) x10^3/uL Absolute Monos (auto) 0.83 (0.0-1.3) x10^3/uL Absolute Nucleated RBC 0.00 (0.00-0.01) x10^3u/L Lymphocytes % 20.5 L (24.0-44.0) % Monocytes % 7.2 (0.0-12.0) % Eosinophils % 4.4 (0.00-5.0) % Basophils % 1.2 (0.0-0.4) % Absolute Granulocytes 7.48 H (1.4-6.9) x10^3/uL Basophils # 0.14 (0-0.4) x10^3/uL Sodium 133 L (137-145) mmol/L Potassium 4.0 (3.5-5.1) mmol/L Chloride 96 L (98-107) mmol/L Carbon Dioxide 27 (22-30) mmol/L Anion Gap 15.2 H (5-15) MEQ/L BUN 13 (7-17) mg/dL Creatinine 0.73 (0.52-1.04) mg/dL Estimated GFR > 60.0 ML/MIN Glucose 231 H (74-106) mg/dL Calcium 8.5 (8.4-10.2) mg/dL Total Bilirubin 0.40 (0.2-1.3) mg/dL AST 35 (14-36) U/L ALT 29 (0-35) U/L Alkaline Phosphatase 105 (38-126) U/L Creatine Kinase 67 (30-135) U/L Troponin I (0.000-0.034) ng/mL NT-Pro-B Natriuret Pep (<300) pg/mL Serum Total Protein 8.3 H (6.3-8.2) g/dL Albumin 4.1 (3.5-5.0) g/dL Serum HCG, Qual (NEGATIVE) - Progress Progress: improved, re-examined Air Movement: good Progress Note: 10/13/22 23:59 36 years old morbidly obese female with history of hypertension, diabetes mellitus, tobacco abuse, GERD presented in the ER with chief complaint of substernal dull aching discomfort off and on since yesterday with increased burping. Patient denies any radiation of pain, unable to associate any aggravating or relieving factors. Denies any palpitations or shortness of breath associated with it. Reports having similar symptoms couple of months ago and has seen cardiology with negative work-up including echocardiogram. Patient currently rate 2/10 intensity dull aching pain. Denies any cough fever or chills. Lungs are bilateral clear to auscultation. Patient is not in any distress. EKG showed sinus rhythm with no ST elevations. Negative troponins. Chest x-ray negative for any Any acute cardiopulmonary findings reviewed by me, official report is pending. Chemistries fairly unremarkable. She is PERC negative. She is given aspirin along with Protonix and GI cocktail as I believe her symptoms are more of a secondary to GERD with esophagitis. On reevaluation she is symptom-free. I would give her a prescription of Carafate to go home. Since her symptoms been going on since yesterday, 1 negative troponin rules it out. Do not think she needs to be admitted or any other work-up and stable for discharge with outpatient primary care and cardiology follow-up. Discussed signs symptoms of worsening needing return to ER which she seems understanding. 10/14/22 00:01 Blood Culture(s) Obtained: No Antibiotics given: No Counseled pt/family regarding: lab results, diagnosis, need for follow-up, rad results, smoking cessation Medical Desision Making - Diagnostic Testing Diagnostic test were ordered, analyzed, and reviewed by me: Yes Radiological Interpretation: Interpreted by me, Reviewed by me - Risk of complications The pt has a mod risk of morbidity or mortality based on: Need for prescription drug management - Departure Departure Disposition: Home Clinical Impression: Chest pain due to GERD Condition: Stable Critical Care Time: No Referrals: CASSIE GUNN NP [Primary Care Provider] - Follow up with PCP 2 days Instructions: Acid Reflux and GERD in Adults (DC), Angina (DC) Additional Instructions: Follow-up with primary care and cardiology for reevaluation. Return to ER for worsening chest pain or if having difficulty breathing/palpitations etc. Prescriptions: Sucralfate 1 gm [Carafate 1 GM] 1 g PO ACHS #20 tablet
--- NOTE | 2022-10-14 08:40 | XRAY ---
Indication: Chest pain. Comparison: August 21, 2022 Portable apical lordotic chest again demonstrates normal heart and lungs. Bony thorax intact with mild degenerative changes. No new/acute findings.
== END 2022-10-14 00:18 | disposition home or self-care (01) ==
LOC: ED 22:03
DX: K21.00 Gastro-esophageal reflux disease with esophagitis, without bleeding (principal); I10 Essential (primary) hypertension; E11.9 Type 2 diabetes mellitus without complications; Z79.85 Long-term (current) use of injectable non-insulin antidiabetic drugs; Z79.899 Other long term (current) drug therapy; Z72.0 Tobacco use
CPT/HCPCS: 36000; 36415; 71045; 80053; 82550; 83880; 84484; 84703; 85025; 93005; 93041; 96374; 99284; A9270-GY

== ENCOUNTER 2022-10-23 11:34 | Emergency (ER) | payer MEDICARE ==
--- NOTE | 2022-10-23 12:23 | ERPHSYRPT ---
- History of Present Illness Source: patient Exam Limitations: other (P) Patient Subjective Stated Complaint: pt here for htn today, b/p was taken at home Triage Nursing Assessment: pt alert, resp easy, skin w/d/p, edema not lower legs that is normal for her, states she is more tried than normal Physician History: 37 yo WF w elevated BP x 1 day. Pt is almost normotensive upon ER arrival. She denies chest pain/dyspnea/focal weakness/fever. Pt states that she has mild erythema R pre-tibail area and is worried about cellulitis. She has a h/o D M/HTN/morbid obesity/tobacco abuse. Timing/Duration: today Severity: mild Modifying Factors: Improves With: nothing Associated Symptoms: denies symptoms Allergies/Adverse Reactions: cefpodoxime Allergy (Intermediate, Verified 10/13/22 22:21) red, itchy rash cephalexin [From Keflex] Allergy (Verified 10/23/22 11:58) sulfamethoxazole [From Bactrim] Allergy (Verified 10/13/22 22:21) trimethoprim [From Bactrim] Allergy (Verified 10/13/22 22:21) vancomycin Allergy (Verified 10/13/22 22:21) Home Medications: Levothyroxine Sodium [Synthroid] 274 mcg PO DAILY 09/01/11 [History] Folic Acid 1 mg PO DAILY 09/02/14 [History] Secukinumab [Cosentyx (2 Syringes)] 300 mg IM UD 10/23/15 [History] Ergocalciferol (Vitamin D2) [Vitamin D] 1 tab PO WEEKLY 12/26/16 [History] Semaglutide [Rybelsus] 7 mg PO DAILY 06/27/22 [History] Hx Tetanus, Diphtheria Vaccination/Date Given: Yes Hx Influenza Vaccination/Date Given: No Hx Pneumococcal Vaccination/Date Given: No Travel Risk - International Travel Have you traveled outside of the country in past 3 weeks: No - Coronavirus Screening Are you exhibiting any of the following symptoms?: No Close contact with a COVID-19 positive Pt in past 14-21 Days: No - Vaccine Status Have you recieved a Covid-19 vaccination: Yes Te[employer]el [employer]: [employer] - Vaccination Dates Date of 2cond Vaccination (if applicable): 02/08/21 - Review of Systems Constitutional: No Symptoms, Fatigue Eyes: No Symptoms Ears, Nose, & Throat: No Symptoms Respiratory: No Symptoms Cardiac: No Symptoms Abdominal/Gastrointestinal: No Symptoms Genitourinary Symptoms: No Symptoms Musculoskeletal: No Symptoms Skin: Cellulitis Neurological: No Symptoms Psychological: No Symptoms Endocrine: No Symptoms Hematologic/Lymphatic: No Symptoms Immunological/Allergic: No Symptoms - Past Medical History Pertinent Past Medical History: Yes Neurological History: No Pertinent History ENT History: No Pertinent History Cardiac History: No Pertinent History Respiratory History: Asthma, Sleep Apnea Endocrine Medical History: Diabetes Type I, Hypothyroidism Musculoskeletal History: Arthritis, Rheumatoid Arthritis GI Medical History: No Pertinent History History: No Pertinent History Psycho-Social History: No Pertinent History, Anxiety Female Reproductive Disorders: No Pertinent History Other Medical History: PSORIASIS - Past Surgical History Past Surgical History: Yes Neuro Surgical History: No Pertinent History Cardiac: No Pertinent History Respiratory: No Pertinent History Gastrointestinal: No Pertinent History Genitourinary: No Pertinent History Musculoskeletal: No Pertinent History Female Surgical History: No Pertinent History Other Surgical History: 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 - Social History Smoking Status: Current every day smoker How long have you smoked: 20 yrs Exposure to second hand smoke: Yes Alcohol Use: None Drug Use: none Patient Lives Alone: No Significant Family History: diabetes - Female History Hx Last Menstrual Period: september 2022 Hx Now: No - Nursing Vital Signs Nursing Vital Signs: Initial Vital Signs Temperature 97.5 F 10/23/22 11:53 Pulse Rate 93 H 10/23/22 11:53 Respiratory Rate 18 10/23/22 11:53 Blood Pressure 136/81 10/23/22 11:53 O2 Sat by Pulse Oximetry 98 10/23/22 11:53 Pain Scale Pain Intensity 5 WNL - Physical Exam General Appearance: no apparent distress Eye Exam: PERRL/EOMI, eyes nml inspection Ears, Nose, Throat Exam: normal ENT inspection, TMs normal, pharynx normal, moist mucous membranes Neck Exam: normal inspection, non-tender, supple, full range of motion, No meningismus, No mass, No Brudzinski, No Kernig's, No carotid bruit Respiratory Exam: normal breath sounds, lungs clear, airway intact Cardiovascular Exam: regular rate/rhythm, normal heart sounds, normal peripheral pulses, capillary refill <2 sec, No murmur Gastrointestinal/Abdomen Exam: soft, normal bowel sounds, No tenderness Back Exam: normal inspection, normal range of motion, No CVA tenderness, No vertebral tenderness, No rash Extremity Exam: normal inspection Neurologic Exam: alert, oriented x 3, cooperative, mail deliverer II-XII nml as tested, normal mood/affect, nml cerebellar function, nml station & gait, sensation nml Skin Exam: normal color, warm, dry Lymphatic Exam: No adenopathy SpO2 Interpretation: normal SpO2: 98 O2 Delivery: Room Air - Course Nursing assessment & vital signs reviewed: Yes - Radiology Exams Chest X-ray Interpretation: Reviewed by me, Discussed w/ radiologist (CXR neg) - CT Exams Chest CT Interpretation: Discussed w/radiologist (CXR NAD) Ordered Tests: Active Orders 24 hr Category Date Time Status IV Insertion STAT Care 10/23/22 13:33 Completed CHEST 1 VIEW (PORTABLE) Stat Exams 10/23/22 13:18 Completed CBC W DIFF Stat Lab 10/23/22 12:25 Completed CMP Stat Lab 10/23/22 12:27 Completed Lactic Acid Stat Lab 10/23/22 12:40 Completed Lactic Acid Stat Lab 10/23/22 14:44 Completed TROPONIN Q4H Lab 10/23/22 12:27 Completed TROPONIN Q4H Lab 10/23/22 15:30 Received TROPONIN Q4H Lab 10/23/22 20:15 Ordered UA W/RFX UR CULTURE Stat Lab 10/23/22 12:56 Completed Medication Summary Discontinued Medications Generic Name Dose Route Start Last Admin Trade Name Constantineq PRN Reason Stop Dose Admin Sodium Chloride 1,000 mls @ 999 mls/hr 10/23/22 13:33 10/23/22 15:33 Sodium Chloride 0.9% 1000 Ml IV 10/23/22 14:33 Infused .Q1H1M STA Infusion Sodium Chloride Confirm 10/23/22 14:02 Sodium Chloride 0.9% 1000 Ml Administered 10/23/22 14:03 Dose 1,000 mls @ ud .ROUTE .STK-MED ONE Lab/Rad Data: Laboratory Result Diagrams 10/23/22 12:25 10/23/22 12:27 Laboratory Results 10/23/22 10/23/22 10/23/22 Range/Units 14:44 13:30 12:56 WBC (4.0-10.5) x10^3/uL RBC (4.1-5.4) x10^6/uL Hgb (12.0-16.0) g/dL Hct (35-47) % MCV (78-100) fL MCH (26-32) pg MCHC (32-36) g/dL RDW (11.5-14.0) % Plt Count (150-450) x10^3/uL MPV (7.5-11.0) fL Gran % (36.0-66.0) % Immature Gran % (Auto) (0.00-0.4) % Nucleat RBC Rel Count (0.00-0.1) % Eos # (Auto) (0-0.5) x10^3/uL Immature Gran # (Auto) (0.00-0.03) x10^3u/L Absolute Lymphs (auto) (1.0-4.6) x10^3/uL Absolute Monos (auto) (0.0-1.3) x10^3/uL Absolute Nucleated RBC (0.00-0.01) x10^3u/L Lymphocytes % (24.0-44.0) % Monocytes % (0.0-12.0) % Eosinophils % (0.00-5.0) % Basophils % (0.0-0.4) % Absolute Granulocytes (1.4-6.9) x10^3/uL Basophils # (0-0.4) x10^3/uL Sodium (137-145) mmol/L Potassium (3.5-5.1) mmol/L Chloride (98-107) mmol/L Carbon Dioxide (22-30) mmol/L Anion Gap (5-15) MEQ/L BUN (7-17) mg/dL Creatinine (0.52-1.04) mg/dL Estimated GFR ML/MIN Glucose (74-106) mg/dL Lactic Acid 2.7 H (0.4-2.0) Calcium (8.4-10.2) mg/dL Total Bilirubin (0.2-1.3) mg/dL AST (14-36) U/L ALT (0-35) U/L Alkaline Phosphatase (38-126) U/L Troponin I (0.000-0.034) ng/mL Serum Total Protein (6.3-8.2) g/dL Albumin (3.5-5.0) g/dL Urine Color Yellow (Yellow) Urine Appearance Clear (Clear) Urine pH 7.0 (4.6-8.0) Ur Specific [place] 1.020 (1.005-1.030) Urine Protein 30 (Negative) Urine Glucose (UA) Negative (Negative) mg/dL Urine Ketones Negative (Negative) Urine Blood Negative (Negative) Urine Nitrite Negative (Negative) Urine Bilirubin Negative (Negative) Urine Urobilinogen 0.2 (0.2) mg/dL Ur Leukocyte Esterase Negative (Negative) U Hyaline Cast (Auto) NONE SEEN (0-2) /LPF Urine Microscopic RBC 0-2 (0-5) /HPF Urine Microscopic WBC 3-5 (0-5) /HPF Ur Epithelial Cells Few (None Seen) /HPF Urine Bacteria None Seen (None Seen) /HPF Urine Culture Reflexed NO (NO) Influenza Type A Ag NEGATIVE (NEGATIVE) Influenza Type B Ag NEGATIVE (NEGATIVE) RSV (PCR) NEGATIVE (NEGATIVE) SARS-CoV-2 (PCR) NEGATIVE (NEGATIVE) 10/23/22 10/23/22 10/23/22 Range/Units 12:40 12:27 12:27 WBC (4.0-10.5) x10^3/uL RBC (4.1-5.4) x10^6/uL Hgb (12.0-16.0) g/dL Hct (35-47) % MCV (78-100) fL MCH (26-32) pg MCHC (32-36) g/dL RDW (11.5-14.0) % Plt Count (150-450) x10^3/uL MPV (7.5-11.0) fL Gran % (36.0-66.0) % Immature Gran % (Auto) (0.00-0.4) % Nucleat RBC Rel Count (0.00-0.1) % Eos # (Auto) (0-0.5) x10^3/uL Immature Gran # (Auto) (0.00-0.03) x10^3u/L Absolute Lymphs (auto) (1.0-4.6) x10^3/uL Absolute Monos (auto) (0.0-1.3) x10^3/uL Absolute Nucleated RBC (0.00-0.01) x10^3u/L Lymphocytes % (24.0-44.0) % Monocytes % (0.0-12.0) % Eosinophils % (0.00-5.0) % Basophils % (0.0-0.4) % Absolute Granulocytes (1.4-6.9) x10^3/uL Basophils # (0-0.4) x10^3/uL Sodium 135 L (137-145) mmol/L Potassium 4.6 (3.5-5.1) mmol/L Chloride 96 L (98-107) mmol/L Carbon Dioxide 28 (22-30) mmol/L Anion Gap 14.7 (5-15) MEQ/L BUN 16 (7-17) mg/dL Creatinine 0.68 (0.52-1.04) mg/dL Estimated GFR > 60.0 ML/MIN Glucose 188 H (74-106) mg/dL Lactic Acid 3.2 H (0.4-2.0) Calcium 8.8 (8.4-10.2) mg/dL Total Bilirubin 0.60 (0.2-1.3) mg/dL AST 37 H (14-36) U/L ALT 31 (0-35) U/L Alkaline Phosphatase 70 (38-126) U/L Troponin I < 0.012 (0.000-0.034) ng/mL Serum Total Protein 7.8 (6.3-8.2) g/dL Albumin 4.0 (3.5-5.0) g/dL Urine Color (Yellow) Urine Appearance (Clear) Urine pH (4.6-8.0) Ur Specific [place] (1.005-1.030) Urine Protein (Negative) Urine Glucose (UA) (Negative) mg/dL Urine Ketones (Negative) Urine Blood (Negative) Urine Nitrite (Negative) Urine Bilirubin (Negative) Urine Urobilinogen (0.2) mg/dL Ur Leukocyte Esterase (Negative) U Hyaline Cast (Auto) (0-2) /LPF Urine Microscopic RBC (0-5) /HPF Urine Microscopic WBC (0-5) /HPF Ur Epithelial Cells (None Seen) /HPF Urine Bacteria (None Seen) /HPF Urine Culture Reflexed (NO) Influenza Type A Ag (NEGATIVE) Influenza Type B Ag (NEGATIVE) RSV (PCR) (NEGATIVE) SARS-CoV-2 (PCR) (NEGATIVE) 06/28/23 Range/Units 12:25 WBC 10.0 (4.0-10.5) x10^3/uL RBC 4.87 (4.1-5.4) x10^6/uL Hgb 14.6 (12.0-16.0) g/dL Hct 46.4 (35-47) % MCV 95.3 (78-100) fL MCH 30.0 (26-32) pg MCHC 31.5 L (32-36) g/dL RDW 13.0 (11.5-14.0) % Plt Count 198 (150-450) x10^3/uL MPV 9.6 (7.5-11.0) fL Gran % 70.7 H (36.0-66.0) % Immature Gran % (Auto) 1.1 H (0.00-0.4) % Nucleat RBC Rel Count 0.0 (0.00-0.1) % Eos # (Auto) 0.37 (0-0.5) x10^3/uL Immature Gran # (Auto) 0.11 H (0.00-0.03) x10^3u/L Absolute Lymphs (auto) 1.61 (1.0-4.6) x10^3/uL Absolute Monos (auto) 0.69 (0.0-1.3) x10^3/uL Absolute Nucleated RBC 0.00 (0.00-0.01) x10^3u/L Lymphocytes % 16.1 L (24.0-44.0) % Monocytes % 6.9 (0.0-12.0) % Eosinophils % 3.7 (0.00-5.0) % Basophils % 1.5 (0.0-0.4) % Absolute Granulocytes 7.09 H (1.4-6.9) x10^3/uL Basophils # 0.15 (0-0.4) x10^3/uL Sodium (137-145) mmol/L Potassium (3.5-5.1) mmol/L Chloride (98-107) mmol/L Carbon Dioxide (22-30) mmol/L Anion Gap (5-15) MEQ/L BUN (7-17) mg/dL Creatinine (0.52-1.04) mg/dL Estimated GFR ML/MIN Glucose (74-106) mg/dL Lactic Acid (0.4-2.0) Calcium (8.4-10.2) mg/dL Total Bilirubin (0.2-1.3) mg/dL AST (14-36) U/L ALT (0-35) U/L Alkaline Phosphatase (38-126) U/L Troponin I (0.000-0.034) ng/mL Serum Total Protein (6.3-8.2) g/dL Albumin (3.5-5.0) g/dL Urine Color (Yellow) Urine Appearance (Clear) Urine pH (4.6-8.0) Ur Specific [place] (1.005-1.030) Urine Protein (Negative) Urine Glucose (UA) (Negative) mg/dL Urine Ketones (Negative) Urine Blood (Negative) Urine Nitrite (Negative) Urine Bilirubin (Negative) Urine Urobilinogen (0.2) mg/dL Ur Leukocyte Esterase (Negative) U Hyaline Cast (Auto) (0-2) /LPF Urine Microscopic RBC (0-5) /HPF Urine Microscopic WBC (0-5) /HPF Ur Epithelial Cells (None Seen) /HPF Urine Bacteria (None Seen) /HPF Urine Culture Reflexed (NO) Influenza Type A Ag (NEGATIVE) Influenza Type B Ag (NEGATIVE) RSV (PCR) (NEGATIVE) SARS-CoV-2 (PCR) (NEGATIVE) - Progress Progress Note: 10/23/22 16:00 Nursing note and vital signs reviewed No food or housing insecurities noted All lab results reviewed and shared w pt CXR result reviewed and shared w pt Pt normotensive during stay Lactic acid elevated but decreasing after 1L NS bolus. No evidence of sepsis or infection. Pt thought R pre-tibial area might have early erythema, but no evidence of cellulitis on serial exams. 10/23/22 16:02 Counseled pt/family regarding: lab results, diagnosis, need for follow-up, rad results Medical Desision Making - Diagnostic Testing Diagnostic test were ordered, analyzed, and reviewed by me: Yes Radiological Interpretation: Reviewed by me - Risk of complications Low Risk: Low risk of morbidity from additional dx testing or treatment - Departure Departure Disposition: Home Clinical Impression: Hypertension, Elevated lactic acid level Condition: Stable Critical Care Time: No Referrals: CASSIE GUNN FLAKING ROLL OPERATOR [Primary Care Provider] - Follow up/PCP as directed Instructions: High blood pressure in adults Additional Instructions: Follow up with your family MD in 1-2 days Return to ER for any new signs/symptoms
[2022-10-23 12:31] LABS: Absolute Neutrophil Ct (ANC) 7.09 x10^3/uL (1.4-6.9); BASOPHIL % 1.5 % (0.0-0.4); Basophil (Absolute #) 0.15 x10^3/uL (0-0.4); Eosinophil % 3.7 % (0.00-5.0); Eosinophil (Absolute #) 0.37 x10^3/uL (0-0.5); Hematocrit 46.4 % (35-47); Hemoglobin 14.6 g/dL (12.0-16.0); IMMATURE GRAN # 0.11 x10^3u/L (0.00-0.03); IMMATURE GRAN % 1.1 % (0.00-0.4); Lymphocyte (Absolute #) 1.61 x10^3/uL (1.0-4.6); Lymphocytes % 16.1 % (24.0-44.0); Mean Cell Volume 95.3 fL (78-100); Mean Corpuscular Hgb Concent. 31.5 g/dL (32-36); Mean Platelet Volume 9.6 fL (7.5-11.0); Monocyte (Absolute #) 0.69 x10^3/uL (0.0-1.3); Monocytes % 6.9 % (0.0-12.0); Neutrophil % 70.7 % (36.0-66.0); Platelet Count 198 x10^3/uL (150-450); Red Blood Count 4.87 x10^6/uL (4.1-5.4)
[2022-10-23 12:48] LABS: ALKALINE PHOSPHATASE 70 U/L (38-126); ANION GAP 14.7 MEQ/L (5-15); BLOOD UREA NITROGEN 16 mg/dL (7-17); CHLORIDE 96 mmol/L (98-107); Calcium 8.8 mg/dL (8.4-10.2); Carbon Dioxide 28 mmol/L (22-30); Creatinine 1 0.68 mg/dL (0.52-1.04); EST GLOMERULAR FILTRATION RATE > 60.0 ML/MIN; Glucose 188 mg/dL (74-106); Potassium 4.6 mmol/L (3.5-5.1); SGOT/AST 37 U/L (14-36); SGPT/ALT 31 U/L (0-35); SODIUM 135 mmol/L (137-145); Total Protein 7.8 g/dL (6.3-8.2)
[2022-10-23] MEDS ORDERED: Sodium Chloride 0.9% 1000 ML 1,000 ML IV STA (13:33)
[2022-10-23 13:34] LABS: Appearance Clear (Clear); Bacteria None Seen /HPF (None Seen); Bilirubin Negative (Negative); Blood Negative (Negative); Epithelial Cells Few /HPF (None Seen); Glucose, Urine Negative (Negative); Hyaline Casts NONE SEEN /LPF (0-2); Ketones Negative (Negative); Leukocyte Esterase Negative (Negative); Nitrite Negative (Negative); Protein,Urine Dip 30 (Negative); RBC 0-2 /HPF (0-5); Urobilinogen 0.2 mg/dL (0.2)
[2022-10-23 13:35] LABS: ADD URINE CULTURE? NO (NO)
--- NOTE | 2022-10-23 13:40 | XRAY ---
Indication: Lethargy. High blood pressure. Comparison: October 13, 2022 Portable apical lordotic chest again demonstrates normal heart and lungs. Bony thorax intact. No new/acute findings.
[2022-10-23] MEDS ORDERED: Sodium Chloride 0.9% 1000 ML 1,000 ML ONE (14:02)
[2022-10-23 14:11] LABS: INFLUENZA A NEGATIVE (NEGATIVE); INFLUENZA B NEGATIVE (NEGATIVE); RESPIRATORY SYNCTIAL VIRUS NEGATIVE (NEGATIVE); SARS-CoV-2 Xpert Express NEGATIVE (NEGATIVE)
[2022-10-23 15:36] VITALS: BP 130/76; PULSE 87
[2022-10-23 15:43] VITALS: O2SAT 98
== END 2022-10-23 15:53 | disposition home or self-care (01) ==
LOC: ED 11:34
DX: I10 Essential (primary) hypertension (principal); R79.89 Other specified abnormal findings of blood chemistry; E11.9 Type 2 diabetes mellitus without complications; Z79.84 Long term (current) use of oral hypoglycemic drugs; Z79.899 Other long term (current) drug therapy; Z72.0 Tobacco use; Z20.828 Contact with and (suspected) exposure to other viral communicable diseases
CPT/HCPCS: 0241U; 36000; 36415; 71045; 80053; 81001; 83605; 84484; 85025; 96360; 99284

== ENCOUNTER 2022-12-16 13:20 | Emergency (ER) | payer MEDICARE ==
--- NOTE | 2022-12-16 13:27 | ERPHSYRPT ---
- History of Present Illness Time Seen by Provider: 12/16/22 13:26 Source: patient, family Exam Limitations: no limitations Physician History: This is a morbidly obese 37-year-old white female patient who is a diabetic and has hypothyroidism and has a history of pleurisy in the past and presents with intermittent productive cough and chest pain with coughing and deep inspiration. Patient is afebrile. Patient has appointment to see her primary care provider on 12/18/2022. That was the soonest she could get into see her primary care provider. However, she wanted to obtain a chest x-ray today because of her symptoms. Patient has no abdominal pain. She has had no nausea vomiting or diarrhea symptoms. Timing/Duration: yesterday Cough Quality/Degree: mild, productive cough Possible Cause: occasional episodes Modifying Factors: Improves With: coughing, deep breath Associated Symptoms: chest pain/soreness, cough, No shortness of breath (With cough and deep inspiration only) Allergies/Adverse Reactions: cefpodoxime Allergy (Intermediate, Verified 12/16/22 13:27) red, itchy rash cephalexin [From Keflex] Allergy (Verified 12/16/22 13:27) sulfamethoxazole [From Bactrim] Allergy (Verified 12/16/22 13:27) trimethoprim [From Bactrim] Allergy (Verified 12/16/22 13:27) vancomycin Allergy (Verified 12/16/22 13:27) Home Medications: Levothyroxine Sodium [Synthroid] 274 mcg PO DAILY 09/01/11 [History] Folic Acid 1 mg PO DAILY 09/02/14 [History] Secukinumab [Cosentyx (2 Syringes)] 300 mg IM UD 10/23/15 [History] Ergocalciferol (Vitamin D2) [Vitamin D] 1 tab PO WEEKLY 12/26/16 [History] Semaglutide [Rybelsus] 7 mg PO DAILY 06/27/22 [History] Hx Tetanus, Diphtheria Vaccination/Date Given: Yes Hx Influenza Vaccination/Date Given: No Hx Pneumococcal Vaccination/Date Given: No Travel Risk - International Travel Have you traveled outside of the country in past 3 weeks: No - Coronavirus Screening Are you exhibiting any of the following symptoms?: Yes Symptoms: Cough: New Onset Close contact with a COVID-19 positive Pt in past 14-21 Days: No - Vaccine Status Have you recieved a Covid-19 vaccination: Yes [employer]: Pfizer - Vaccination Dates Date of 2cond Vaccination (if applicable): 02/08/21 - Review of Systems Constitutional: No Symptoms Eyes: No Symptoms Ears, Nose, & Throat: No Symptoms Respiratory: Cough Cardiac: Chest Pain Abdominal/Gastrointestinal: No Symptoms (With cough and deep inspiration) Genitourinary Symptoms: No Symptoms Musculoskeletal: No Symptoms Skin: No Symptoms Neurological: No Symptoms Psychological: No Symptoms Endocrine: No Symptoms Hematologic/Lymphatic: No Symptoms Immunological/Allergic: No Symptoms All Other Systems: Reviewed and Negative - Past Medical History Pertinent Past Medical History: Yes Neurological History: No Pertinent History ENT History: No Pertinent History Cardiac History: No Pertinent History Respiratory History: Asthma, Sleep Apnea Endocrine Medical History: Diabetes Type I, Hypothyroidism Musculoskeletal History: Arthritis, Rheumatoid Arthritis GI Medical History: No Pertinent History History: No Pertinent History Psycho-Social History: No Pertinent History, Anxiety Female Reproductive Disorders: No Pertinent History Other Medical History: PSORIASIS - Past Surgical History Past Surgical History: Yes Neuro Surgical History: No Pertinent History Cardiac: No Pertinent History Respiratory: No Pertinent History Gastrointestinal: No Pertinent History Genitourinary: No Pertinent History Musculoskeletal: No Pertinent History Female Surgical History: No Pertinent History Other Surgical History: 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 - Social History Smoking Status: Current every day smoker How long have you smoked: 20 yrs Exposure to second hand smoke: Yes Alcohol Use: None Drug Use: none Patient Lives Alone: No Significant Family History: diabetes - Nursing Vital Signs Nursing Vital Signs: Initial Vital Signs Temperature 97.0 F 12/16/22 13:28 Pulse Rate 93 H 12/16/22 13:28 Respiratory Rate 20 12/16/22 13:28 Blood Pressure 116/79 12/16/22 13:28 O2 Sat by Pulse Oximetry 98 12/16/22 13:28 Pain Scale Pain Intensity 0 - Physical Exam General Appearance: no apparent distress, alert, anxiety, obese Eye Exam: PERRL/EOMI, eyes nml inspection Ears, Nose, Throat Exam: normal ENT inspection, moist mucous membranes Neck Exam: normal inspection, non-tender, supple, full range of motion Respiratory Exam: normal breath sounds, chest tenderness (With cough and deep inspiration only), lungs clear, airway intact, No respiratory distress Cardiovascular Exam: regular rate/rhythm, normal heart sounds, normal peripheral pulses Gastrointestinal/Abdomen Exam: soft, normal bowel sounds, No tenderness Pelvic Exam: not done Rectal Exam: not done Back Exam: normal inspection, normal range of motion, No CVA tenderness, No vertebral tenderness Extremity Exam: normal inspection, normal range of motion, pelvis stable Neurologic Exam: alert, oriented x 3, cooperative, fur drummer II-XII nml as tested, normal mood/affect, nml cerebellar function, nml station & gait, sensation nml Skin Exam: normal color, warm, dry Lymphatic Exam: No adenopathy SpO2 Interpretation: normal O2 Delivery: Room Air - Course Nursing assessment & vital signs reviewed: Yes EKG Interpreted by Me: RATE ([id number]), Sinus Tach, NORMAL AXIS, NORMAL INTERVALS, NORMAL QRS, NORMAL ST-T, Other (There is no evidence for acute ischemic changes on today's twelve-lead EKG) Ordered Tests: Active Orders 24 hr Category Date Time Status EKG-ER Only STAT Care 12/16/22 13:34 Active CHEST 1 VIEW (PORTABLE) Stat Exams 12/16/22 13:34 Completed CBC W DIFF Stat Lab 12/16/22 13:38 Completed CMP Stat Lab 12/16/22 13:38 Completed D-DIMER QUANTITATIVE Stat Lab 12/16/22 13:38 Completed TROPONIN Q4H Lab 12/16/22 13:38 Completed TROPONIN Q4H Lab 12/16/22 17:45 Ordered TROPONIN Q4H Lab 12/16/22 21:45 Ordered UA W/RFX UR CULTURE Stat Lab 12/16/22 13:38 Completed Lab/Rad Data: Laboratory Result Diagrams 12/16/22 13:38 12/16/22 13:38 Laboratory Results 12/16/22 12/16/22 12/16/22 Range/Units 13:52 13:38 13:38 WBC (4.0-10.5) x10^3/uL RBC (4.1-5.4) x10^6/uL Hgb (12.0-16.0) g/dL Hct (35-47) % MCV (78-100) fL MCH (26-32) pg MCHC (32-36) g/dL RDW (11.5-14.0) % Plt Count (150-450) x10^3/uL MPV (7.5-11.0) fL Gran % (36.0-66.0) % Immature Gran % (Auto) (0.00-0.4) % Nucleat RBC Rel Count (0.00-0.1) % Eos # (Auto) (0-0.5) x10^3/uL Immature Gran # (Auto) (0.00-0.03) x10^3u/L Absolute Lymphs (auto) (1.0-4.6) x10^3/uL Absolute Monos (auto) (0.0-1.3) x10^3/uL Absolute Nucleated RBC (0.00-0.01) x10^3u/L Lymphocytes % (24.0-44.0) % Monocytes % (0.0-12.0) % Eosinophils % (0.00-5.0) % Basophils % (0.0-0.4) % Absolute Granulocytes (1.4-6.9) x10^3/uL Basophils # (0-0.4) x10^3/uL D-Dimer 0.20 (0.0-0.50) mg/L Sodium (137-145) mmol/L Potassium (3.5-5.1) mmol/L Chloride (98-107) mmol/L Carbon Dioxide (22-30) mmol/L Anion Gap (5-15) MEQ/L BUN (7-17) mg/dL Creatinine (0.52-1.04) mg/dL Estimated GFR ML/MIN Glucose (74-106) mg/dL Calcium (8.4-10.2) mg/dL Total Bilirubin (0.2-1.3) mg/dL AST (14-36) U/L ALT (0-35) U/L Alkaline Phosphatase (38-126) U/L Troponin I < 0.012 (0.000-0.034) ng/mL Serum Total Protein (6.3-8.2) g/dL Albumin (3.5-5.0) g/dL Urine Color (Yellow) Urine Appearance (Clear) Urine pH (4.6-8.0) Ur Specific [place] (1.005-1.030) Urine Protein (Negative) Urine Glucose (UA) (Negative) mg/dL Urine Ketones (Negative) Urine Blood (Negative) Urine Nitrite (Negative) Urine Bilirubin (Negative) Urine Urobilinogen (0.2) mg/dL Ur Leukocyte Esterase (Negative) U Hyaline Cast (Auto) (0-2) /LPF Urine Microscopic RBC (0-5) /HPF Urine Microscopic WBC (0-5) /HPF Ur Epithelial Cells (None Seen) /HPF Urine Bacteria (None Seen) /HPF Urine Culture Reflexed (NO) Influenza Type A Ag NEGATIVE (NEGATIVE) Influenza Type B Ag NEGATIVE (NEGATIVE) RSV (PCR) NEGATIVE (NEGATIVE) SARS-CoV-2 (PCR) NEGATIVE (NEGATIVE) Group A Strep Antibody NOT DETECTED (NEGATIVE) 12/16/22 12/16/22 12/16/22 Range/Units 13:38 13:38 13:38 WBC 11.6 H (4.0-10.5) x10^3/uL RBC 4.62 (4.1-5.4) x10^6/uL Hgb 14.2 (12.0-16.0) g/dL Hct 44.0 (35-47) % MCV 95.2 (78-100) fL MCH 30.7 (26-32) pg MCHC 32.3 (32-36) g/dL RDW 13.5 (11.5-14.0) % Plt Count 253 (150-450) x10^3/uL MPV 9.5 (7.5-11.0) fL Gran % 68.7 H (36.0-66.0) % Immature Gran % (Auto) 2.1 H (0.00-0.4) % Nucleat RBC Rel Count 0.0 (0.00-0.1) % Eos # (Auto) 0.35 (0-0.5) x10^3/uL Immature Gran # (Auto) 0.25 H (0.00-0.03) x10^3u/L Absolute Lymphs (auto) 2.14 (1.0-4.6) x10^3/uL Absolute Monos (auto) 0.78 (0.0-1.3) x10^3/uL Absolute Nucleated RBC 0.00 (0.00-0.01) x10^3u/L Lymphocytes % 18.4 L (24.0-44.0) % Monocytes % 6.7 (0.0-12.0) % Eosinophils % 3.0 (0.00-5.0) % Basophils % 1.1 (0.0-0.4) % Absolute Granulocytes 7.98 H (1.4-6.9) x10^3/uL Basophils # 0.13 (0-0.4) x10^3/uL D-Dimer (0.0-0.50) mg/L Sodium 134 L (137-145) mmol/L Potassium 4.5 (3.5-5.1) mmol/L Chloride 98 (98-107) mmol/L Carbon Dioxide 24 (22-30) mmol/L Anion Gap 17.0 H (5-15) MEQ/L BUN 14 (7-17) mg/dL Creatinine 0.77 (0.52-1.04) mg/dL Estimated GFR > 60.0 ML/MIN Glucose 224 H (74-106) mg/dL Calcium 8.8 (8.4-10.2) mg/dL Total Bilirubin 0.60 (0.2-1.3) mg/dL AST 39 H (14-36) U/L ALT 29 (0-35) U/L Alkaline Phosphatase 70 (38-126) U/L Troponin I (0.000-0.034) ng/mL Serum Total Protein 7.8 (6.3-8.2) g/dL Albumin 4.2 (3.5-5.0) g/dL Urine Color Dark Yellow A (Yellow) Urine Appearance Cloudy A (Clear) Urine pH 6.0 (4.6-8.0) Ur Specific [place] 1.025 (1.005-1.030) Urine Protein 100 A (Negative) Urine Glucose (UA) 250 A (Negative) mg/dL Urine Ketones Trace A (Negative) Urine Blood Negative (Negative) Urine Nitrite Negative (Negative) Urine Bilirubin Negative (Negative) Urine Urobilinogen 1.0 A (0.2) mg/dL Ur Leukocyte Esterase Negative (Negative) U Hyaline Cast (Auto) 3-5 A (0-2) /LPF Urine Microscopic RBC 0-2 (0-5) /HPF Urine Microscopic WBC 0-2 (0-5) /HPF Ur Epithelial Cells Moderate A (None Seen) /HPF Urine Bacteria Rare A (None Seen) /HPF Urine Culture Reflexed NO (NO) Influenza Type A Ag (NEGATIVE) Influenza Type B Ag (NEGATIVE) RSV (PCR) (NEGATIVE) SARS-CoV-2 (PCR) (NEGATIVE) Group A Strep Antibody (NEGATIVE) - Progress Progress: improved Air Movement: good Progress Note: 12/16/22 15:03 This patient's medical issue is 1 of moderate complexity. Level complexity in the work-up performed is based on review of the patient's past medical history, review of the patient's medication list, review the patient's drug allergy list, history of present illness and physical findings on examination. The work-up includes a chest x-ray, twelve-lead EKG, troponin level, D-dimer level, CBC, CMP and urinalysis. The chest x-ray was interpreted by the radiologist and I reviewed the impression. There is no evidence of any acute cardiopulmonary process. The patient laboratory data shows mild leukocytosis. The patient does have a productive cough and chest pain on inspiration and with coughing. Her D-dimer is normal. Her troponin is normal. Her chest x-ray does not show an infiltrate. I will treat her for bronchitis and I will send a prescription remotely to her pharmacy for a Z-Nagi and prednisone. She has an appointment to see her primary care provider on 12/18/2022. Blood Culture(s) Obtained: No Antibiotics given: No Counseled pt/family regarding: lab results, diagnosis, need for follow-up, rad results Medical Desision Making - Independent Historian Additional History obtained from: Spouse - Diagnostic Testing Diagnostic test were ordered, analyzed, and reviewed by me: Yes Radiological Interpretation: Reviewed by me, Teleradiologist Report - Risk of complications The pt has a mod risk of morbidity or mortality based on: Need for prescription drug management - Departure Departure Disposition: Home Clinical Impression: Leukocytosis, Bronchitis Condition: Stable Critical Care Time: No Referrals: CASSIE GUNN, [employer] TRAIN DRIVER [Primary Care Provider] - Follow up/PCP as directed Additional Instructions: Avoid smoking cigarettes. Avoid exposure to smoke. Keep your appointment with your primary care provider on 12/18/2022. Take your medication as prescribed Prescriptions: Prednisone 10 mg [Deltasone 10 mg] 10 mg PO TID #12 tablet Azithromycin 250 mg [Zithromax 250 MG TABLET] 250 mg PO ZPACK #6 tablet
[2022-12-16 13:35] VITALS: TEMP 97
[2022-12-16 14:01] LABS: Absolute Neutrophil Ct (ANC) 7.98 x10^3/uL (1.4-6.9); BASOPHIL % 1.1 % (0.0-0.4); Basophil (Absolute #) 0.13 x10^3/uL (0-0.4); Eosinophil (Absolute #) 0.35 x10^3/uL (0-0.5); Hemoglobin 14.2 g/dL (12.0-16.0); IMMATURE GRAN # 0.25 x10^3u/L (0.00-0.03); IMMATURE GRAN % 2.1 % (0.00-0.4); Lymphocyte (Absolute #) 2.14 x10^3/uL (1.0-4.6); Lymphocytes % 18.4 % (24.0-44.0); Mean Cell Volume 95.2 fL (78-100); Mean Corpuscular Hemoglobin 30.7 pg (26-32); Mean Corpuscular Hgb Concent. 32.3 g/dL (32-36); Mean Platelet Volume 9.5 fL (7.5-11.0); Monocyte (Absolute #) 0.78 x10^3/uL (0.0-1.3); Monocytes % 6.7 % (0.0-12.0); Neutrophil % 68.7 % (36.0-66.0); Platelet Count 253 x10^3/uL (150-450); Red Blood Count 4.62 x10^6/uL (4.1-5.4); Red Cell Distribution Width 13.5 % (11.5-14.0); White Blood Count 11.6 x10^3/uL (4.0-10.5)
[2022-12-16 14:15] LABS: ALBUMIN 4.2 g/dL (3.5-5.0); ALKALINE PHOSPHATASE 70 U/L (38-126); BLOOD UREA NITROGEN 14 mg/dL (7-17); CHLORIDE 98 mmol/L (98-107); Calcium 8.8 mg/dL (8.4-10.2); Carbon Dioxide 24 mmol/L (22-30); Creatinine 1 0.77 mg/dL (0.52-1.04); EST GLOMERULAR FILTRATION RATE > 60.0 ML/MIN; Glucose 224 mg/dL (74-106); Potassium 4.5 mmol/L (3.5-5.1); SGOT/AST 39 U/L (14-36); SGPT/ALT 29 U/L (0-35); SODIUM 134 mmol/L (137-145); Total Protein 7.8 g/dL (6.3-8.2)
[2022-12-16 14:25] LABS: Appearance Cloudy (Clear); Bacteria Rare /HPF (None Seen); Bilirubin Negative (Negative); Blood Negative (Negative); Epithelial Cells Moderate /HPF (None Seen); Glucose, Urine 250 mg/dL (Negative); Ketones Trace (Negative); Leukocyte Esterase Negative (Negative); Nitrite Negative (Negative); Protein,Urine Dip 100 (Negative); RBC 0-2 /HPF (0-5); Specific Gravity 1.025 (1.005-1.030); WBC 0-2 /HPF (0-5)
[2022-12-16 14:30] LABS: ADD URINE CULTURE? NO (NO)
[2022-12-16 14:35] LABS: Group A Strep NOT DETECTED (NEGATIVE)
[2022-12-16 14:46] LABS: INFLUENZA A NEGATIVE (NEGATIVE); INFLUENZA B NEGATIVE (NEGATIVE); RESPIRATORY SYNCTIAL VIRUS NEGATIVE (NEGATIVE); SARS-CoV-2 Xpert Express NEGATIVE (NEGATIVE)
--- NOTE | 2022-12-16 14:49 | XRAY ---
Indication: Cough. Comparison: October 23, 2022 Portable chest again demonstrates normal heart and lungs. Bony thorax intact. No new/acute findings.
[2022-12-16 15:13] VITALS: O2SAT 96
[2022-12-16 15:21] VITALS: BP 130/85; PULSE 98; RESP 18
== END 2022-12-16 15:16 | disposition home or self-care (01) ==
LOC: ED 13:20
DX: J40 Bronchitis, not specified as acute or chronic (principal); D72.829 Elevated white blood cell count, unspecified; R05.9 Cough, unspecified; R07.9 Chest pain, unspecified; E10.9 Type 1 diabetes mellitus without complications; Z79.84 Long term (current) use of oral hypoglycemic drugs; Z79.52 Long term (current) use of systemic steroids; Z79.899 Other long term (current) drug therapy; Z72.0 Tobacco use
CPT/HCPCS: 0241U; 36415; 71045; 80053; 81001; 84484; 85025; 85379; 87651; 93005; 99283

== ENCOUNTER 2023-03-16 14:12 | Emergency (ER) | payer MEDICARE ==
[2023-03-16 14:36] VITALS: BP 138/86; PULSE 90; RESP 20; TEMP 98.5; O2SAT 98
[2023-03-16 15:18] LABS: BASOPHIL % 1.3 % (0.0-0.4); Basophil (Absolute #) 0.14 x10^3/uL (0-0.4); Eosinophil % 2.6 % (0.00-5.0); Eosinophil (Absolute #) 0.28 x10^3/uL (0-0.5); Hematocrit 45.2 % (35-47); Hemoglobin 14.3 g/dL (12.0-16.0); IMMATURE GRAN # 0.21 x10^3u/L (0.00-0.03); Lymphocyte (Absolute #) 1.66 x10^3/uL (1.0-4.6); Lymphocytes % 15.5 % (24.0-44.0); Mean Cell Volume 99.1 fL (78-100); Mean Corpuscular Hemoglobin 31.4 pg (26-32); Mean Corpuscular Hgb Concent. 31.6 g/dL (32-36); Mean Platelet Volume 9.4 fL (7.5-11.0); Monocytes % 5.6 % (0.0-12.0); Platelet Count 232 x10^3/uL (150-450); Red Blood Count 4.56 x10^6/uL (4.1-5.4); Red Cell Distribution Width 12.8 % (11.5-14.0); White Blood Count 10.7 x10^3/uL (4.0-10.5)
[2023-03-16 15:33] LABS: ALBUMIN 4.1 g/dL (3.5-5.0); ANION GAP 13.1 MEQ/L (5-15); BILIRUBIN,TOTAL 0.5 mg/dL (0.2-1.3); Creatinine 1 0.72 mg/dL (0.52-1.04); EST GLOMERULAR FILTRATION RATE 110.4 ML/MIN; Potassium 4.8 mmol/L (3.5-5.1); Total Protein 7.7 g/dL (6.3-8.2)
[2023-03-16 15:54] LABS: INFLUENZA A NEGATIVE (NEGATIVE); INFLUENZA B NEGATIVE (NEGATIVE); RESPIRATORY SYNCTIAL VIRUS NEGATIVE (NEGATIVE); SARS-CoV-2 Xpert Express NEGATIVE (NEGATIVE)
--- NOTE | 2023-03-16 16:31 | ERPHSYRPT ---
- History of Present Illness Time Seen by Provider: 03/16/23 14:20 Source: patient Exam Limitations: no limitations Patient Subjective Stated Complaint: C/O headache that started yesterday. States it is not constant, "it comes and goes." Describes as achy. Denies any vision changes. States nausea at times without vomiting. Denies falls, trauma, hits to head. Triage Nursing Assessment: Patient ambulated back to ER without difficulties. Steady gait. She is alert and oriented. No SOB. PALMER WNL. No light sensitivity. No current pain. States pain is a #5 when it happens. Physician History: 37-year-old morbidly obese female presented in the ER with chief complaint of flulike symptoms. Patient reports having off-and-on headache, sore throat, cough congestion, body aches and loose stool. Does report having positive c ontact with other people having gastroenteritis symptoms. No chest pain palpitations or shortness of breath. No abdominal pain nausea or vomiting. Patient denies having any headache today. She is afebrile. Lungs bilateral clear to auscultation. No abdominal tenderness. Normoactive bowel sounds in all 4 quadrants. Nonfocal neuro exam. She is offered symptomatic relief for headache but denies any headache and declines pain medication. She is not in any distress. I have obtained COVID wh ich is negative. Has chest x-ray which is negative for any acute cardiopulmonary findings reviewed by me, official report is pending. Has normal white count, unremarkable chemistries. I believe patient has viral etiology symptoms, recommended supportive care. Discussed signs symptoms of worsening needing return to ER which she seems understanding. Allergies/Adverse Reactions: cefpodoxime Allergy (Intermediate, Verified 03/16/23 14:23) red, itchy rash cephalexin [From Keflex] Allergy (Verified 03/16/23 14:23) sulfamethoxazole [From Bactrim] Allergy (Verified 03/16/23 14:23) trimethoprim [From Bactrim] Allergy (Verified 03/16/23 14:23) vancomycin Allergy (Verified 03/16/23 14:23) Home Medications: Levothyroxine Sodium [Synthroid] 274 mcg PO DAILY 09/01/11 [History] Folic Acid 1 mg PO DAILY 09/02/14 [History] Secukinumab [Cosentyx (2 Syringes)] 300 mg IM UD 10/23/15 [History] Ergocalciferol (Vitamin D2) [Vitamin D] 1 tab PO WEEKLY 12/26/16 [History] Semaglutide [Rybelsus] 7 mg PO DAILY 06/27/22 [History] Hx Tetanus, Diphtheria Vaccination/Date Given: Yes Hx Influenza Vaccination/Date Given: No Hx Pneumococcal Vaccination/Date Given: No Immunizations Up to Date: Yes Travel Risk - International Travel Have you traveled outside of the country in past 3 weeks: No - Coronavirus Screening Are you exhibiting any of the following symptoms?: Yes Symptoms: Cough: New Onset, Headaches/Body Aches/Fatigue Close contact with a COVID-19 positive Pt in past 14-21 Days: No - Vaccine Status Have you recieved a Covid-19 vaccination: Yes [employer]: [employer] - Vaccination Dates Date of 2cond Vaccination (if applicable): 02/08/21 - Review of Systems Constitutional: Fatigue, Weakness Eyes: No Symptoms Ears, Nose, & Throat: Nose Congestion, Throat Swelling Respiratory: Cough Cardiac: No Symptoms Abdominal/Gastrointestinal: Diarrhea Genitourinary Symptoms: No Symptoms Musculoskeletal: Myalgias Neurological: Headache Psychological: No Symptoms Endocrine: No Symptoms Hematologic/Lymphatic: No Symptoms - Past Medical History Pertinent Past Medical History: Yes Neurological History: No Pertinent History ENT History: No Pertinent History Cardiac History: No Pertinent History Respiratory History: Asthma, Sleep Apnea Endocrine Medical History: Diabetes Type I, Hypothyroidism Musculoskeletal History: Arthritis, Rheumatoid Arthritis GI Medical History: No Pertinent History History: No Pertinent History Psycho-Social History: No Pertinent History, Anxiety Female Reproductive Disorders: No Pertinent History Other Medical History: PSORIASIS - Past Surgical History Past Surgical History: Yes Neuro Surgical History: No Pertinent History Cardiac: No Pertinent History Respiratory: No Pertinent History Gastrointestinal: No Pertinent History Genitourinary: No Pertinent History Musculoskeletal: No Pertinent History Female Surgical History: No Pertinent History Other Surgical History: 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 - Social History Smoking Status: Current every day smoker How long have you smoked: 20 yrs Exposure to second hand smoke: Yes Alcohol Use: None Drug Use: none Patient Lives Alone: No Significant Family History: diabetes - Female History Hx Last Menstrual Period: 2 weeks ago Hx Now: (unkn) - Nursing Vital Signs Nursing Vital Signs: Initial Vital Signs Temperature 98.5 F 03/16/23 14:24 Pulse Rate 90 03/16/23 14:24 Respiratory Rate 20 03/16/23 14:24 Blood Pressure 138/86 03/16/23 14:24 O2 Sat by Pulse Oximetry 98 03/16/23 14:24 Pain Scale Pain Intensity 0 - Physical Exam General Appearance: no apparent distress, alert Eye Exam: PERRL/EOMI Ears, Nose, Throat Exam: moist mucous membranes, pharyngeal erythema Neck Exam: normal inspection, non-tender, supple, full range of motion Respiratory Exam: normal breath sounds, lungs clear Cardiovascular Exam: regular rate/rhythm, normal heart sounds Gastrointestinal/Abdomen Exam: soft, normal bowel sounds, No tenderness Back Exam: normal inspection, normal range of motion Extremity Exam: normal inspection, normal range of motion Neurologic Exam: alert, oriented x 3, cooperative, deicer repairer II-XII nml as tested, normal mood/affect, nml cerebellar function, sensation nml, No motor deficits Skin Exam: normal color SpO2 Interpretation: normal SpO2: 98 O2 Delivery: Room Air Ordered Tests: Active Orders 24 hr Category Date Time Status CHEST 1 VIEW (PORTABLE) Stat Exams 03/16/23 15:00 Taken CBC W DIFF Stat Lab 03/16/23 15:14 Completed CMP Stat Lab 03/16/23 15:14 Completed UA W/RFX UR CULTURE Stat Lab 03/16/23 15:32 Ordered Lab/Rad Data: Laboratory Result Diagrams 03/16/23 15:14 03/16/23 15:14 Laboratory Results 03/16/23 03/16/23 03/16/23 Range/Units 15:14 15:14 15:14 WBC (4.0-10.5) x10^3/uL RBC (4.1-5.4) x10^6/uL Hgb (12.0-16.0) g/dL Hct (35-47) % MCV (78-100) fL MCH (26-32) pg MCHC (32-36) g/dL RDW (11.5-14.0) % Plt Count (150-450) x10^3/uL MPV (7.5-11.0) fL Gran % (36.0-66.0) % Immature Gran % (Auto) (0.00-0.4) % Nucleat RBC Rel Count (0.00-0.1) % Eos # (Auto) (0-0.5) x10^3/uL Immature Gran # (Auto) (0.00-0.03) x10^3u/L Absolute Lymphs (auto) (1.0-4.6) x10^3/uL Absolute Monos (auto) (0.0-1.3) x10^3/uL Absolute Nucleated RBC (0.00-0.01) x10^3u/L Lymphocytes % (24.0-44.0) % Monocytes % (0.0-12.0) % Eosinophils % (0.00-5.0) % Basophils % (0.0-0.4) % Absolute Granulocytes (1.4-6.9) x10^3/uL Basophils # (0-0.4) x10^3/uL Sodium 134 L (137-145) mmol/L Potassium 4.8 (3.5-5.1) mmol/L Chloride 98 (98-107) mmol/L Carbon Dioxide 28 (22-30) mmol/L Anion Gap 13.1 (5-15) MEQ/L BUN 13 (7-17) mg/dL Creatinine 0.72 (0.52-1.04) mg/dL Estimated GFR 110.4 ML/MIN Glucose 198 H (74-106) mg/dL Calcium 9.0 (8.4-10.2) mg/dL Total Bilirubin 0.50 (0.2-1.3) mg/dL AST 37 H (14-36) U/L ALT 30 (0-35) U/L Alkaline Phosphatase 60 (38-126) U/L Serum Total Protein 7.7 (6.3-8.2) g/dL Albumin 4.1 (3.5-5.0) g/dL Influenza Type A Ag NEGATIVE (NEGATIVE) Influenza Type B Ag NEGATIVE (NEGATIVE) RSV (PCR) NEGATIVE (NEGATIVE) SARS-CoV-2 (PCR) NEGATIVE (NEGATIVE) Group A Strep Antibody NOT DETECTED (NEGATIVE) 03/16/23 Range/Units 15:14 WBC 10.7 H (4.0-10.5) x10^3/uL RBC 4.56 (4.1-5.4) x10^6/uL Hgb 14.3 (12.0-16.0) g/dL Hct 45.2 (35-47) % MCV 99.1 (78-100) fL MCH 31.4 (26-32) pg MCHC 31.6 L (32-36) g/dL RDW 12.8 (11.5-14.0) % Plt Count 232 (150-450) x10^3/uL MPV 9.4 (7.5-11.0) fL Gran % 73.0 H (36.0-66.0) % Immature Gran % (Auto) 2.0 H (0.00-0.4) % Nucleat RBC Rel Count 0.0 (0.00-0.1) % Eos # (Auto) 0.28 (0-0.5) x10^3/uL Immature Gran # (Auto) 0.21 H (0.00-0.03) x10^3u/L Absolute Lymphs (auto) 1.66 (1.0-4.6) x10^3/uL Absolute Monos (auto) 0.60 (0.0-1.3) x10^3/uL Absolute Nucleated RBC 0.00 (0.00-0.01) x10^3u/L Lymphocytes % 15.5 L (24.0-44.0) % Monocytes % 5.6 (0.0-12.0) % Eosinophils % 2.6 (0.00-5.0) % Basophils % 1.3 (0.0-0.4) % Absolute Granulocytes 7.80 H (1.4-6.9) x10^3/uL Basophils # 0.14 (0-0.4) x10^3/uL Sodium (137-145) mmol/L Potassium (3.5-5.1) mmol/L Chloride (98-107) mmol/L Carbon Dioxide (22-30) mmol/L Anion Gap (5-15) MEQ/L BUN (7-17) mg/dL Creatinine (0.52-1.04) mg/dL Estimated GFR ML/MIN Glucose (74-106) mg/dL Calcium (8.4-10.2) mg/dL Total Bilirubin (0.2-1.3) mg/dL AST (14-36) U/L ALT (0-35) U/L Alkaline Phosphatase (38-126) U/L Serum Total Protein (6.3-8.2) g/dL Albumin (3.5-5.0) g/dL Influenza Type A Ag (NEGATIVE) Influenza Type B Ag (NEGATIVE) RSV (PCR) (NEGATIVE) SARS-CoV-2 (PCR) (NEGATIVE) Group A Strep Antibody (NEGATIVE) - Progress Progress: improved, re-examined Air Movement: good Progress Note: 03/16/23 16:30 37-year-old morbidly obese female presented in the ER with chief complaint of flulike symptoms. Patient reports having off-and-on headache, sore throat, cough congestion, body aches and loose stool. Does report having positive contact with other people having gastroenteritis symptoms. No chest pain palpitations or shortness of breath. No abdominal pain nausea or vomiting. Patient denies having any headache today. She is afebrile. Lungs bilateral clear to auscultation. No abdominal tenderness. Normoactive bowel sounds in all 4 quadrants. Nonfocal neuro exam. She is offered symptomatic relief for headache but denies any headache and declines pain medication. She is not in any distress. I have obtained COVID which is negative. Has chest x-ray which is negative for any acute cardiopulmonary findings reviewed by me, official report is pending. Has normal white count, unremarkable chemistries. I believe patient has viral etiology symptoms, recommended supportive care. Discussed signs symptoms of worsening needing return to ER which she seems unde rstanding. Blood Culture(s) Obtained: No Antibiotics given: No Counseled pt/family regarding: lab results, diagnosis, need for follow-up, rad results - Departure Departure Disposition: Home Clinical Impression: Viral syndrome Condition: Stable Critical Care Time: No Referrals: CASSIE GUNN [employer]NANCE [Primary Care Provider] - Follow up with PCP 1 day Instructions: Headache, Adult (DC), Viral Syndrome (DC) Additional Instructions: Drink plenty of fluids. Take Tylenol/ibuprofen as needed for aches and pains. Follow-up with primary care for reevaluation. Return to ER for any worsening.
[2023-03-16 16:40] LABS: Appearance Clear (Clear); Bacteria None Seen /HPF (None Seen); Bilirubin Negative (Negative); Blood Negative (Negative); Epithelial Cells Rare /HPF (None Seen); Glucose, Urine Negative (Negative); Hyaline Casts NONE SEEN /LPF (0-2); Ketones Negative (Negative); Leukocyte Esterase Negative (Negative); Nitrite Negative (Negative); Ph 6.5 (4.6-8.0); Protein,Urine Dip Trace (Negative); RBC 0-2 /HPF (0-5); Specific Gravity 1.015 (1.005-1.030); Urobilinogen 0.2 mg/dL (0.2); WBC 0-2 /HPF (0-5)
[2023-03-16 16:42] LABS: ADD URINE CULTURE? NO (NO)
--- NOTE | 2023-03-16 18:04 | XRAY ---
Indication: Cough and chest tightness. Comparison: December 16, 2022 Portable chest slightly rotated and remains clear. Heart not enlarged. Bony thorax intact. No new/acute findings.
== END 2023-03-16 17:02 | disposition home or self-care (01) ==
LOC: ED 14:12
DX: B34.9 Viral infection, unspecified (principal); J02.9 Acute pharyngitis, unspecified; R51.9 Headache, unspecified; R05.1 Acute cough; M79.10 Myalgia, unspecified site; R19.7 Diarrhea, unspecified; E10.9 Type 1 diabetes mellitus without complications; Z79.899 Other long term (current) drug therapy; Z72.0 Tobacco use
CPT/HCPCS: 0241U; 36415; 71045; 80053; 81001; 85025; 87651; 99283

== ENCOUNTER 2023-03-19 06:10 | Emergency (ER) | payer MEDICARE ==
[2023-03-19 06:38] VITALS: RESP 20; TEMP 96.9; O2SAT 95
--- NOTE | 2023-03-19 07:49 | ERPHSYRPT ---
- History of Present Illness Time Seen by Provider: 03/19/23 07:10 Source: patient Exam Limitations: no limitations Patient Subjective Stated Complaint: Went to bathroom to pee and then noticed blood on the toilet paper and in toilet when wiping. Triage Nursing Assessment: Patient ambulated to the ED. C/o pain in rectal area as a burning pain that is constant. States went to the bathroom to urinate and then wiping she noticed blood on the toilet paper and in the toilet. States is not menstrating at this time. Having some slight discomfort in her abdominal area. Physician History: This is a morbidly obese 37-year-old white female patient who presents to the emergency department with perianal burning, lower abdominal discomfort and rectal bleeding. She describes blood on the toilet paper as well as in the commode. This morning, the patient went to the restroom and urinated and noticed the above findings and symptoms. Patient denies nausea vomiting. She has no chest pain. She has no shortness of breath. Patient is a daily smoker of cigarettes. Patient has a history of hypothyroidism, diabetes, rheumatoid arthritis, hypertension, asthma and anxiety. She has no liver disease. She has no bleeding or clotting disorders. She has not been taking excessive aspirin or ibuprofen. Timing/Duration: today Severity: mild Associated Symptoms: denies symptoms Allergies/Adverse Reactions: cefpodoxime Allergy (Intermediate, Verified 03/19/23 06:39) red, itchy rash cephalexin [From Keflex] Allergy (Verified 03/19/23 06:39) sulfamethoxazole [From Bactrim] Allergy (Verified 03/19/23 06:39) trimethoprim [From Bactrim] Allergy (Verified 03/19/23 06:39) vancomycin Allergy (Verified 03/19/23 06:39) Home Medications: Levothyroxine Sodium [Synthroid] 274 mcg PO DAILY 09/01/11 [History] Folic Acid 1 mg PO DAILY 09/02/14 [History] Ergocalciferol (Vitamin D2) [Vitamin D] 1 tab PO WEEKLY 12/26/16 [History] Semaglutide [Rybelsus] 14 mg PO DAILY 06/27/22 [History] Guselkumab [Tremfya] 100 mg SQ UD 03/19/23 [History] Sucralfate 1 gm [Carafate 1 GM] 1 g PO UD 03/19/23 [History] Hx Tetanus, Diphtheria Vaccination/Date Given: Yes Hx Influenza Vaccination/Date Given: No Hx Pneumococcal Vaccination/Date Given: No Immunizations Up to Date: Yes Travel Risk - International Travel Have you traveled outside of the country in past 3 weeks: No - Coronavirus Screening Are you exhibiting any of the following symptoms?: No Close contact with a COVID-19 positive Pt in past 14-21 Days: No - Vaccine Status Have you recieved a Covid-19 vaccination: Yes 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[employer] - Vaccination Dates Date of 2cond Vaccination (if applicable): 02/08/21 - Review of Systems Constitutional: No Symptoms Eyes: No Symptoms Ears, Nose, & Throat: No Symptoms Respiratory: No Symptoms Cardiac: No Symptoms Abdominal/Gastrointestinal: Abdominal Pain (Mild lower abdominal discomfort), Hematochezia Genitourinary Symptoms: No Symptoms Musculoskeletal: No Symptoms Skin: No Symptoms Neurological: No Symptoms Psychological: No Symptoms Endocrine: No Symptoms Hematologic/Lymphatic: No Symptoms Immunological/Allergic: No Symptoms All Other Systems: Reviewed and Negative - Past Medical History Pertinent Past Medical History: Yes Neurological History: No Pertinent History ENT History: No Pertinent History Cardiac History: No Pertinent History, Hypertension Respiratory History: Asthma, Sleep Apnea Endocrine Medical History: Diabetes Type I, Hypothyroidism Musculoskeletal History: Arthritis, Rheumatoid Arthritis GI Medical History: No Pertinent History, Hemorrhoids History: No Pertinent History Psycho-Social History: Anxiety, Depression Female Reproductive Disorders: No Pertinent History Other Medical History: PSORIASIS, OBESITY - Past Surgical History Past Surgical History: Yes Neuro Surgical History: No Pertinent History Cardiac: No Pertinent History Respiratory: No Pertinent History Gastrointestinal: No Pertinent History Genitourinary: No Pertinent History Musculoskeletal: No Pertinent History Female Surgical History: No Pertinent History Other Surgical History: 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 - Social History Smoking Status: Current every day smoker How long have you smoked: 20 yrs Exposure to second hand smoke: Yes Alcohol Use: None Drug Use: none Patient Lives Alone: No Significant Family History: diabetes - Female History Hx Last Menstrual Period: 02/2023 Hx Now: No - Nursing Vital Signs Nursing Vital Signs: Initial Vital Signs Temperature 96.9 F 03/19/23 06:25 Pulse Rate 86 03/19/23 06:25 Respiratory Rate 20 03/19/23 06:25 Blood Pressure 165/84 03/19/23 06:25 O2 Sat by Pulse Oximetry 95 03/19/23 06:25 Pain Scale Pain Intensity 5 - Physical Exam General Appearance: no apparent distress, alert, anxiety, obese Eye Exam: PERRL/EOMI, eyes nml inspection Ears, Nose, Throat Exam: normal ENT inspection, moist mucous membranes Neck Exam: normal inspection, non-tender, supple, full range of motion Respiratory Exam: normal breath sounds, lungs clear, airway intact, No chest tenderness, No respiratory distress Cardiovascular Exam: regular rate/rhythm, normal heart sounds, normal peripheral pulses Gastrointestinal/Abdomen Exam: soft, normal bowel sounds, No tenderness, No guarding Pelvic Exam: not done Rectal Exam: not done Back Exam: normal inspection, normal range of motion, No CVA tenderness, No vertebral tenderness Extremity Exam: normal inspection, normal range of motion, pelvis stable Neurologic Exam: alert, oriented x 3, cooperative, 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, normal mood/affect, nml cerebellar function, nml station & gait, sensation nml Skin Exam: normal color, warm, dry Lymphatic Exam: No adenopathy SpO2 Interpretation: normal SpO2: 95 O2 Delivery: Room Air - Course Nursing assessment & vital signs reviewed: Yes Ordered Tests: Active Orders 24 hr Category Date Time Status ABDOMEN AND PELVIS W/0 CONTRAS [CT] Stat Exams 03/19/23 08:23 Completed CBC W DIFF Stat Lab 03/19/23 08:10 Completed CMP Stat Lab 03/19/23 08:10 Completed PROTIME WITH INR Stat Lab 03/19/23 08:10 Completed Lab/Rad Data: Laboratory Result Diagrams 03/19/23 08:10 03/19/23 08:10 Laboratory Results 03/19/23 03/19/23 03/19/23 Range/Units 08:10 08:10 08:10 WBC 11.5 H (4.0-10.5) x10^3/uL RBC 4.45 (4.1-5.4) x10^6/uL Hgb 14.0 (12.0-16.0) g/dL Hct 43.8 (35-47) % MCV 98.4 (78-100) fL MCH 31.5 (26-32) pg MCHC 32.0 (32-36) g/dL RDW 13.0 (11.5-14.0) % Plt Count 220 (150-450) x10^3/uL MPV 9.8 (7.5-11.0) fL Gran % 68.9 H (36.0-66.0) % Immature Gran % (Auto) 1.6 H (0.00-0.4) % Nucleat RBC Rel Count 0.0 (0.00-0.1) % Eos # (Auto) 0.32 (0-0.5) x10^3/uL Immature Gran # (Auto) 0.18 H (0.00-0.03) x10^3u/L Absolute Lymphs (auto) 2.01 (1.0-4.6) x10^3/uL Absolute Monos (auto) 0.90 (0.0-1.3) x10^3/uL Absolute Nucleated RBC 0.00 (0.00-0.01) x10^3u/L Lymphocytes % 17.5 L (24.0-44.0) % Monocytes % 7.8 (0.0-12.0) % Eosinophils % 2.8 (0.00-5.0) % Basophils % 1.4 (0.0-0.4) % Absolute Granulocytes 7.94 H (1.4-6.9) x10^3/uL Basophils # 0.16 (0-0.4) x10^3/uL PT 10.7 (9.4-12.5) SECONDS INR 0.98 (0.8-3.0) Sodium 135 L (137-145) mmol/L Potassium 4.3 (3.5-5.1) mmol/L Chloride 101 (98-107) mmol/L Carbon Dioxide 26 (22-30) mmol/L Anion Gap 12.8 (5-15) MEQ/L BUN 21 H (7-17) mg/dL Creatinine 0.78 (0.52-1.04) mg/dL Estimated GFR 100.3 ML/MIN Glucose 211 H (74-106) mg/dL Calcium 9.5 (8.4-10.2) mg/dL Total Bilirubin 0.60 (0.2-1.3) mg/dL AST 24 (14-36) U/L ALT 27 (0-35) U/L Alkaline Phosphatase 78 (38-126) U/L Serum Total Protein 7.6 (6.3-8.2) g/dL Albumin 4.1 (3.5-5.0) g/dL - Progress Progress: improved, re-examined Progress Note: 03/19/23 08:31 This patient's medical issue is 1 of moderate complexity. Level complex in the workup performed is based on review of the patient's past medical history, review the patient's medication list, reviewed patient's drug allergy list, history of present illness and physical examination findings. Workup in this patient includes CBC, CMP, PT/INR and a CT scan of the abdomen pelvis. 03/19/23 08:58 I reviewed and interpreted the patient's laboratory data results. There are no acute, emergent findings on her laboratory reports. CT scan of the abdomen pelvis without contrast was interpreted by the radiologist. I reviewed the impression. The impression states chronic findings . Multilevel degenerative spondylosis. Normal appendix. Counseled pt/family regarding: lab results, diagnosis, need for follow-up, rad results Medical Desision Making - Independent Historian Additional History obtained from: Spouse - Diagnostic Testing Diagnostic test were ordered, analyzed, and reviewed by me: Yes Radiological Interpretation: Reviewed by me, Teleradiologist Report - Risk of complications Minimal Risk: Minimal risk of morbidity - Departure Departure Disposition: Home Clinical Impression: Rectal bleeding Condition: Stable Critical Care Time: No Referrals: CASSIE GUNN, BOND WRITER [Primary Care Provider] - Follow up/PCP as directed Additional Instructions: Drink plenty of fluids. Take your medication as prescribed. Sitz bath twice a day with warm soapy water or Epsom salts. Call your primary care provider today , 03/19/2023, to make arrangements for follow-up appointment and for further management.
[2023-03-19 08:21] LABS: Absolute Neutrophil Ct (ANC) 7.94 x10^3/uL (1.4-6.9); BASOPHIL % 1.4 % (0.0-0.4); Basophil (Absolute #) 0.16 x10^3/uL (0-0.4); Eosinophil % 2.8 % (0.00-5.0); Eosinophil (Absolute #) 0.32 x10^3/uL (0-0.5); Hematocrit 43.8 % (35-47); IMMATURE GRAN # 0.18 x10^3u/L (0.00-0.03); IMMATURE GRAN % 1.6 % (0.00-0.4); Lymphocyte (Absolute #) 2.01 x10^3/uL (1.0-4.6); Lymphocytes % 17.5 % (24.0-44.0); Mean Cell Volume 98.4 fL (78-100); Mean Corpuscular Hemoglobin 31.5 pg (26-32); Mean Platelet Volume 9.8 fL (7.5-11.0); Monocytes % 7.8 % (0.0-12.0); Neutrophil % 68.9 % (36.0-66.0); Platelet Count 220 x10^3/uL (150-450); Red Blood Count 4.45 x10^6/uL (4.1-5.4); White Blood Count 11.5 x10^3/uL (4.0-10.5)
[2023-03-19 08:35] LABS: INR 0.98 (0.8-3.0); PROTIME 10.7 SECONDS (9.4-12.5)
[2023-03-19 08:37] LABS: ALBUMIN 4.1 g/dL (3.5-5.0); ANION GAP 12.8 MEQ/L (5-15); BILIRUBIN,TOTAL 0.6 mg/dL (0.2-1.3); Calcium 9.5 mg/dL (8.4-10.2); Creatinine 1 0.78 mg/dL (0.52-1.04); EST GLOMERULAR FILTRATION RATE 100.3 ML/MIN; Potassium 4.3 mmol/L (3.5-5.1); Total Protein 7.6 g/dL (6.3-8.2)
--- NOTE | 2023-03-19 08:52 | XRAY ---
Indication: Abdomen discomfort. Rectal bleeding. Multiple contiguous axial images obtained through the abdomen and pelvis without contrast. Comparison: None Lung bases clear. Heart not enlarged. Noncontrasted stomach and bowel loops appear nonobstructed with normal appendix. Diffuse fatty liver. No free fluid/air. Remaining liver, gallbladder, pancreas, spleen, adrenal glands, kidneys, ureters, bladder, uterus, and aorta are unremarkable for noncontrast exam. Osseous structures intact with minimal/mild generative changes throughout thoracolumbar spine. Moderate size fatty umbilical hernia. Impression: 1. Chronic findings including fatty liver, multilevel degenerative spondylosis, and fatty umbilical hernia. 2. Remaining CT abdomen/pelvis without contrast exam is negative.
[2023-03-19 09:15] VITALS: BP 146/79; PULSE 68
== END 2023-03-19 09:20 | disposition home or self-care (01) ==
LOC: ED 06:10
DX: K62.5 Hemorrhage of anus and rectum (principal); R10.30 Lower abdominal pain, unspecified; E10.9 Type 1 diabetes mellitus without complications; I10 Essential (primary) hypertension; Z79.84 Long term (current) use of oral hypoglycemic drugs; Z79.899 Other long term (current) drug therapy; Z72.0 Tobacco use
CPT/HCPCS: 36415; 74176; 80053; 85025; 85610; 99283

== ENCOUNTER 2023-05-07 21:13 | Emergency (ER) | payer MEDICARE ==
--- NOTE | 2023-05-07 21:21 | ERPHSYRPT ---
- History of Present Illness Time Seen by Provider: 05/07/23 21:21 Source: patient Exam Limitations: no limitations Physician History: This is a morbidly obese 37-year-old white female patient has a history of asthma. 5 to 6 days ago she was having a cough and bodyaches headache and mild shortness of breath. Patient was seen in outpatient quick care setting and was started on a Z-Nagi. She completed a 5-day course yesterday for treatment of bronchitis. Her symptoms are still present. She has pain between her shoulder blades, cough, headache, fatigue symptoms. Patient has a history of hypertension, asthma, diabetes, hypothyroidism, anxiety, arthritis and rheu matoid arthritis. Timing/Duration: day(s) (5 to 6 days), worse Activities at Onset: none Severity of Dyspnea-Max: mild Severity of Dyspnea-Current: mild Possible Cause: occasional episodes Associated Symptoms: anxiety, cough, wheezing, No chest pain/discomfort Allergies/Adverse Reactions: cefpodoxime Allergy (Intermediate, Verified 05/07/23 21:22) red, itchy rash cephalexin [From Keflex] Allergy (Verified 05/07/23 21:22) sulfamethoxazole [From Bactrim] Allergy (Verified 05/07/23 21:22) trimethoprim [From Bactrim] Allergy (Verified 05/07/23 21:22) vancomycin Allergy (Verified 05/07/23 21:22) Hives Home Medications: Levothyroxine Sodium [Synthroid] 274 mcg PO DAILY 09/01/11 [History] Folic Acid 1 mg PO DAILY 09/02/14 [History] Ergocalciferol (Vitamin D2) [Vitamin D] 1 tab PO WEEKLY 12/26/16 [History] Semaglutide [Rybelsus] 14 mg PO DAILY 06/27/22 [History] Guselkumab [Tremfya] 100 mg SQ UD 03/19/23 [History] Sucralfate 1 gm [Carafate 1 GM] 1 g PO UD 03/19/23 [History] Insulin Aspart [NovoLOG Insulin] 5 units SQ TIDWM MDD 10 units with supper meal 05/07/23 [History] Insulin Detemir [Levemir Flexpen] 15 unit SQ DAILY 05/07/23 [History] Hx Tetanus, Diphtheria Vaccination/Date Given: Yes Hx Influenza Vaccination/Date Given: No Hx Pneumococcal Vaccination/Date Given: No Travel Risk - International Travel Have you traveled outside of the country in past 3 weeks: No - Coronavirus Screening Are you exhibiting any of the following symptoms?: Yes Symptoms: Cough: New Onset, Shortness of Breath Close contact with a COVID-19 positive Pt in past 14-21 Days: No - Vaccine Status Have you recieved a Covid-19 vaccination: Yes 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[employer] - Vaccination Dates Date of 2cond Vaccination (if applicable): 02/08/21 - Review of Systems Constitutional: No Symptoms Eyes: No Symptoms Ears, Nose, & Throat: No Symptoms Respiratory: Cough, Dyspnea Cardiac: No Symptoms Abdominal/Gastrointestinal: No Symptoms Genitourinary Symptoms: No Symptoms Musculoskeletal: Arthralgias, Myalgias Skin: No Symptoms Neurological: Headache Psychological: Anxiety Endocrine: No Symptoms Hematologic/Lymphatic: No Symptoms Immunological/Allergic: No Symptoms All Other Systems: Reviewed and Negative - Past Medical History Pertinent Past Medical History: Yes Neurological History: No Pertinent History ENT History: No Pertinent History Cardiac History: No Pertinent History, Hypertension Respiratory History: Asthma, Sleep Apnea Endocrine Medical History: Diabetes Type I, Hypothyroidism Musculoskeletal History: Arthritis, Rheumatoid Arthritis GI Medical History: No Pertinent History, Hemorrhoids History: No Pertinent History Psycho-Social History: Anxiety, Depression Female Reproductive Disorders: No Pertinent History Other Medical History: PSORIASIS, OBESITY - Past Surgical History Past Surgical History: Yes Neuro Surgical History: No Pertinent History Cardiac: No Pertinent History Respiratory: No Pertinent History Gastrointestinal: No Pertinent History Genitourinary: No Pertinent History Musculoskeletal: No Pertinent History Female Surgical History: No Pertinent History Other Surgical History: 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 - Social History Smoking Status: Current every day smoker How long have you smoked: 22 yrs Exposure to second hand smoke: Yes Alcohol Use: None Drug Use: none Patient Lives Alone: No Significant Family History: diabetes - Nursing Vital Signs Nursing Vital Signs: Initial Vital Signs Temperature 98.8 F 05/07/23 21:14 Pulse Rate 108 H 05/07/23 21:14 Respiratory Rate 20 05/07/23 21:14 Blood Pressure 120/79 05/07/23 21:14 O2 Sat by Pulse Oximetry 96 05/07/23 21:14 Pain Scale Pain Intensity 2 - Physical Exam General Appearance: no apparent distress, alert, anxiety, obese Eye Exam: PERRL/EOMI, eyes nml inspection Ears, Nose, Throat Exam: hearing grossly normal, normal ENT inspection, normal pharynx Neck Exam: normal inspection, non-tender, supple, full range of motion Respiratory Exam: normal breath sounds, lungs clear, airway intact, No chest tenderness, No respiratory distress Cardiovascular/Chest Exam: normal heart sounds, regular rate/rhythm Abdominal/Gastrointestinal Exam: soft, normal bowel sounds, No tenderness Rectal Exam: not done Extremity Exam: non-tender, normal range of motion, normal inspection, normal capillary refill, no calf tenderness, no pedal edema, pelvis stable Neurologic Exam: alert, oriented x 3, 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, 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, nml cerebellar function, nml station & gait, sensation nml Skin Exam: normal color Lymphatic Exam: No adenopathy SpO2 Interpretation: normal O2 Delivery: Room Air - Course Nursing assessment & vital signs reviewed: Yes EKG Interpreted by Me: RATE (89), Sinus Rhythm, NORMAL AXIS, NORMAL INTERVALS, NORMAL QRS, NORMAL ST-T, Other (No acute ischemic changes on today's twelve-lead EKG.) Ordered Tests: Active Orders 24 hr Category Date Time Status Dowel Pointer STAT Care 05/07/23 21:50 Active EKG-ER Only STAT Care 05/07/23 23:18 Active IV Insertion STAT Care 05/07/23 21:49 Active Pulse Oximetry (ED) STAT Care 05/07/23 21:49 Active CHEST 1 VIEW (PORTABLE) Stat Exams 05/07/23 21:50 Taken BLOOD CULTURE Stat Lab 05/07/23 22:17 Received BMP Stat Lab 05/07/23 22:07 Completed CBC W DIFF Stat Lab 05/07/23 22:07 Completed D-DIMER QUANTITATIVE Stat Lab 05/07/23 22:07 Completed TROPONIN Q4H Lab 05/07/23 22:07 Completed TROPONIN Q4H Lab 05/08/23 03:30 Ordered TROPONIN Q4H Lab 05/08/23 07:30 Ordered Medication Summary Generic Name Dose Route Start Last Admin Trade Name Freq PRN Reason Stop Dose Admin Levofloxacin/Dextrose 500 mg in 100 mls @ 100 mls/hr 05/07/23 23:18 05/07/23 23:36 Levofloxacin 500mg/100ml D5w IV 05/08/23 00:17 100 mls/hr STAT STA 100 mls/hr Administration Discontinued Medications Generic Name Dose Route Start Last Admin Trade Name Ryan PRN Reason Stop Dose Admin Hydrocodone Bitart/Acetaminophen 10 ml 05/07/23 21:51 05/07/23 22:25 Hydrocodone/Acetaminophen 5 Ml Udcup PO 05/07/23 21:52 10 ml STAT STA Administration Hydrocodone Bitart/Acetaminophen Confirm 05/07/23 22:12 Hydrocodone/Acetaminophen 5 Ml Udcup Administered 05/07/23 22:13 Dose 10 ml .ROUTE .STK-MED ONE Methylprednisolone Sodium 0 mg 05/07/23 21:49 05/07/23 22:26 Succinate 125 mg/ Sterile IV 05/07/23 21:50 125 mg Water 2 ml STAT ONE Administration Sodium Chloride 1,000 mls @ 999 mls/hr 05/07/23 21:49 05/07/23 22:26 Sodium Chloride 0.9% 1000 Ml IV 05/07/23 22:49 999 mls/hr .Q1H1M STA Administration Sodium Chloride Confirm 05/07/23 22:12 Sodium Chloride 0.9% 1000 Ml Administered 05/07/23 22:13 Dose 1,000 mls @ ud .ROUTE .STK-MED ONE Levofloxacin/Dextrose Confirm 05/07/23 23:21 Levofloxacin 500mg/100ml D5w Administered 05/07/23 23:22 Dose 500 mg in 100 mls @ ud IV .STK-MED ONE Methylprednisolone Sodium Succinate Confirm 05/07/23 22:12 Methylprednis Sod Succ 125 Mg/2 Ml Vial Administered 05/07/23 22:13 Dose 125 mg .ROUTE .STK-MED ONE Sterile Water Confirm 05/07/23 22:12 Water For Injection,Sterile 10 Ml Vial Administered 05/07/23 22:13 Dose 10 ml IJ .STK-MED ONE Lab/Rad Data: Laboratory Result Diagrams 05/07/23 22:07 05/07/23 22:07 Laboratory Results 05/07/23 05/07/23 05/07/23 Range/Units 22:10 22:10 22:07 WBC (4.0-10.5) x10^3/uL RBC (4.1-5.4) x10^6/uL Hgb (12.0-16.0) g/dL Hct (35-47) % MCV (78-100) fL MCH (26-32) pg MCHC (32-36) g/dL RDW (11.5-14.0) % Plt Count (150-450) x10^3/uL MPV (7.5-11.0) fL Gran % (36.0-66.0) % Immature Gran % (Auto) (0.00-0.4) % Nucleat RBC Rel Count (0.00-0.1) % Eos # (Auto) (0-0.5) x10^3/uL Immature Gran # (Auto) (0.00-0.03) x10^3u/L Absolute Lymphs (auto) (1.0-4.6) x10^3/uL Absolute Monos (auto) (0.0-1.3) x10^3/uL Absolute Nucleated RBC (0.00-0.01) x10^3u/L Lymphocytes % (24.0-44.0) % Monocytes % (0.0-12.0) % Eosinophils % (0.00-5.0) % Basophils % (0.0-0.4) % Absolute Granulocytes (1.4-6.9) x10^3/uL Basophils # (0-0.4) x10^3/uL D-Dimer (0.0-0.50) mg/L Sodium (137-145) mmol/L Potassium (3.5-5.1) mmol/L Chloride (98-107) mmol/L Carbon Dioxide (22-30) mmol/L Anion Gap (5-15) MEQ/L BUN (7-17) mg/dL Creatinine (0.52-1.04) mg/dL Estimated GFR ML/MIN Glucose (74-106) mg/dL Calcium (8.4-10.2) mg/dL Troponin I < 0.012 (0.000-0.034) ng/mL Influenza Type A Ag NEGATIVE (NEGATIVE) Influenza Type B Ag NEGATIVE (NEGATIVE) RSV (PCR) NEGATIVE (NEGATIVE) SARS-CoV-2 (PCR) NEGATIVE (NEGATIVE) Group A Strep Antibody NOT DETECTED (NEGATIVE) 05/07/23 05/07/23 05/07/23 Range/Units 22:07 22:07 22:07 WBC 11.2 H (4.0-10.5) x10^3/uL RBC 4.32 (4.1-5.4) x10^6/uL Hgb 13.8 (12.0-16.0) g/dL Hct 42.3 (35-47) % MCV 97.9 (78-100) fL MCH 31.9 (26-32) pg MCHC 32.6 (32-36) g/dL RDW 12.6 (11.5-14.0) % Plt Count 274 (150-450) x10^3/uL MPV 9.9 (7.5-11.0) fL Gran % 68.8 H (36.0-66.0) % Immature Gran % (Auto) 1.9 H (0.00-0.4) % Nucleat RBC Rel Count 0.0 (0.00-0.1) % Eos # (Auto) 0.39 (0-0.5) x10^3/uL Immature Gran # (Auto) 0.21 H (0.00-0.03) x10^3u/L Absolute Lymphs (auto) 2.01 (1.0-4.6) x10^3/uL Absolute Monos (auto) 0.73 (0.0-1.3) x10^3/uL Absolute Nucleated RBC 0.00 (0.00-0.01) x10^3u/L Lymphocytes % 18.0 L (24.0-44.0) % Monocytes % 6.5 (0.0-12.0) % Eosinophils % 3.5 (0.00-5.0) % Basophils % 1.3 (0.0-0.4) % Absolute Granulocytes 7.69 H (1.4-6.9) x10^3/uL Basophils # 0.14 (0-0.4) x10^3/uL D-Dimer 0.41 (0.0-0.50) mg/L Sodium 132 L (137-145) mmol/L Potassium 4.2 (3.5-5.1) mmol/L Chloride 100 (98-107) mmol/L Carbon Dioxide 25 (22-30) mmol/L Anion Gap 12.1 (5-15) MEQ/L BUN 12 (7-17) mg/dL Creatinine 0.80 (0.52-1.04) mg/dL Estimated GFR 97.3 ML/MIN Glucose 218 H (74-106) mg/dL Calcium 8.3 L (8.4-10.2) mg/dL Troponin I (0.000-0.034) ng/mL Influenza Type A Ag (NEGATIVE) Influenza Type B Ag (NEGATIVE) RSV (PCR) (NEGATIVE) SARS-CoV-2 (PCR) (NEGATIVE) Group A Strep Antibody (NEGATIVE) - Progress Progress: improved, re-examined Air Movement: good Progress Note: 05/07/23 23:11 This patient's medical issue is 1 of moderate complexity. The level of complexity and the workup performed is based on review of the patient's past medical history, review of the patient's medication list, review of the patient's drug allergy list, history of present illness and physical findings on examination. The workup in this patient includes placement of an intravenous line, respiratory therapy consultation, twelve-lead EKG, D-dimer, troponin level, CBC, CMP, and chest x-ray. Will also perform viral swabs. 05/07/23 23:21 I interpreted the chest x-ray. It appears that this patient has an early right lower lobe infiltrate. I interpreted the resulted lab data. The troponin and D-dimer levels are pending. The viral swabs are negative. The patient does have leukocytosis. I will change the antibiotics in this patient and provide her with Levaquin intravenously and remotely send a prescription for 7 more days of daily Levaquin to her pharmacy. Additionally, we will send a prescription remotely to her pharmacy for hydrocodone elixir and prednisone. Patient states that she does no t have an allergic reaction to prednisone but sometimes with higher doses she has mild tachycardia. We will provide her a prescription remotely for lower dose prednisone to her pharmacy. 05/07/23 23:54 Patient's troponin and D-dimer levels are normal Blood Culture(s) Obtained: Yes Antibiotics given: Yes Counseled pt/family regarding: lab results, diagnosis, need for follow-up, rad results Medical Desision Making - Independent Historian Additional History obtained from: Family - Diagnostic Testing Diagnostic test were ordered, analyzed, and reviewed by me: Yes Radiological Interpretation: Interpreted by me - Risk of complications The pt has a mod risk of morbidity or mortality based on: Need for prescription drug management - Departure Departure Disposition: Home Clinical Impression: Right lower lobe pneumonia Condition: Stable Critical Care Time: No Referrals: BATTY,CASSIE D., [employer]SB[employer] MAKER [Primary Care Provider] - Follow up/PCP as directed Additional Instructions: Drink plenty of fluids. Stop smoking cigarettes. Take your medication as prescribed. Call your primary care provider tomorrow, 05/08/2023, to make arrangements for follow-up appointment in the next 3 to 5 days. Prescriptions: Prednisone 5 mg [Deltasone 5 mg] 5 mg PO TID #12 tablet Hydrocodone/Acetaminophen [Hydrocodone-Acetamn 7.5-325/15] 10 ml PO Q8H PRN #120 ml MDD 30 ml PRN Reason: Cough Levofloxacin [Levaquin 500 MG Tablet] 500 mg PO DAILY #7 tablet
[2023-05-07 21:43] VITALS: TEMP 98.8
[2023-05-07] MEDS ORDERED: Sodium Chloride 0.9% 1000 ML 1,000 ML IV STA (21:49)
[2023-05-07] MEDS ORDERED: solu-MEDROL 125 MG, Sterile H2O 10 ml 2 ML IV ONE ×2 (21:49)
[2023-05-07] MEDS ORDERED: HYDROCODONE-ACETAMIN 2.5-108/5 ML SOLUTION PO STA (21:51)
[2023-05-07] MEDS ORDERED: HYDROCODONE-ACETAMIN 2.5-108/5 ML SOLUTION ONE (22:12)
[2023-05-07] MEDS ORDERED: solu-MEDROL ONE (22:12)
[2023-05-07] MEDS ORDERED: Sodium Chloride 0.9% 1000 ML 1,000 ML ONE (22:12)
[2023-05-07] MEDS ORDERED: Sterile H2O 10 ml IJ ONE (22:12)
[2023-05-07 22:22] LABS: Absolute Neutrophil Ct (ANC) 7.69 x10^3/uL (1.4-6.9); BASOPHIL % 1.3 % (0.0-0.4); Basophil (Absolute #) 0.14 x10^3/uL (0-0.4); Eosinophil % 3.5 % (0.00-5.0); Eosinophil (Absolute #) 0.39 x10^3/uL (0-0.5); Hematocrit 42.3 % (35-47); Hemoglobin 13.8 g/dL (12.0-16.0); IMMATURE GRAN # 0.21 x10^3u/L (0.00-0.03); IMMATURE GRAN % 1.9 % (0.00-0.4); Lymphocyte (Absolute #) 2.01 x10^3/uL (1.0-4.6); Mean Cell Volume 97.9 fL (78-100); Mean Corpuscular Hemoglobin 31.9 pg (26-32); Mean Corpuscular Hgb Concent. 32.6 g/dL (32-36); Mean Platelet Volume 9.9 fL (7.5-11.0); Monocyte (Absolute #) 0.73 x10^3/uL (0.0-1.3); Monocytes % 6.5 % (0.0-12.0); Neutrophil % 68.8 % (36.0-66.0); Platelet Count 274 x10^3/uL (150-450); Red Blood Count 4.32 x10^6/uL (4.1-5.4); Red Cell Distribution Width 12.6 % (11.5-14.0); White Blood Count 11.2 x10^3/uL (4.0-10.5)
[2023-05-07 22:36] LABS: ANION GAP 12.1 MEQ/L (5-15); Calcium 8.3 mg/dL (8.4-10.2); Creatinine 1 0.8 mg/dL (0.52-1.04); EST GLOMERULAR FILTRATION RATE 97.3 ML/MIN; Potassium 4.2 mmol/L (3.5-5.1)
[2023-05-07 23:03] LABS: INFLUENZA A NEGATIVE (NEGATIVE); INFLUENZA B NEGATIVE (NEGATIVE); RESPIRATORY SYNCTIAL VIRUS NEGATIVE (NEGATIVE); SARS-CoV-2 Xpert Express NEGATIVE (NEGATIVE)
[2023-05-07] MEDS ORDERED: Levofloxacin 500MG/100ML D5W 500 MG/100 ML BAG IV STA (23:18)
[2023-05-07] MEDS ORDERED: Levofloxacin 500MG/100ML D5W 500 MG/100 ML BAG IV ONE (23:21)
[2023-05-08 00:19] VITALS: PULSE 97; RESP 22; O2SAT 96
[2023-05-08 00:53] VITALS: BP 139/95
--- NOTE | 2023-05-08 08:45 | XRAY ---
Indication: Cough and short of breath. Comparison: March 16, 2023 Portable apical lordotic chest obtained. Query new subtle right infrahilar infiltrate/atelectasis. Remaining heart, left lung, and bony thorax normal.
== END 2023-05-08 00:50 | disposition home or self-care (01) ==
LOC: ED 21:13
DX: J18.9 Pneumonia, unspecified organism (principal); R05.1 Acute cough; M54.6 Pain in thoracic spine; R51.9 Headache, unspecified; R53.83 Other fatigue; I10 Essential (primary) hypertension; E10.9 Type 1 diabetes mellitus without complications; Z79.52 Long term (current) use of systemic steroids; Z79.891 Long term (current) use of opiate analgesic; Z79.84 Long term (current) use of oral hypoglycemic drugs; Z79.4 Long term (current) use of insulin; Z79.899 Other long term (current) drug therapy; Z72.0 Tobacco use
CPT/HCPCS: 0241U; 36000; 36415; 71045; 80048; 84484; 85025; 85379; 87040; 87651; 93005; 93041; 94760; 96360; 96361; 96365; 96374; 99284; J1956; J2930; A9270-GY

== ENCOUNTER 2023-07-07 14:26 | Emergency (ER) | payer MEDICARE ==
[2023-07-07 16:28] VITALS: TEMP 97.3; O2SAT 100
[2023-07-07 17:20] LABS: Absolute Neutrophil Ct (ANC) 8.88 x10^3/uL (1.4-6.9); BASOPHIL % 1.4 % (0.0-0.4); Basophil (Absolute #) 0.18 x10^3/uL (0-0.4); Eosinophil % 3.2 % (0.00-5.0); Eosinophil (Absolute #) 0.41 x10^3/uL (0-0.5); Hematocrit 50.1 % (35-47); IMMATURE GRAN # 0.24 x10^3u/L (0.00-0.03); IMMATURE GRAN % 1.9 % (0.00-0.4); Lymphocytes % 18.6 % (24.0-44.0); Mean Cell Volume 97.5 fL (78-100); Mean Corpuscular Hemoglobin 31.1 pg (26-32); Mean Corpuscular Hgb Concent. 31.9 g/dL (32-36); Mean Platelet Volume 9.4 fL (7.5-11.0); Monocyte (Absolute #) 0.79 x10^3/uL (0.0-1.3); Monocytes % 6.1 % (0.0-12.0); Neutrophil % 68.8 % (36.0-66.0); Platelet Count 283 x10^3/uL (150-450); Red Blood Count 5.14 x10^6/uL (4.1-5.4); Red Cell Distribution Width 12.9 % (11.5-14.0); White Blood Count 12.9 x10^3/uL (4.0-10.5)
[2023-07-07 17:28] LABS: Appearance Cloudy (Clear); Bacteria Rare /HPF (None Seen); Bilirubin Small (Negative); Blood Negative (Negative); Glucose, Urine 100 mg/dL (Negative); Ketones Trace (Negative); Leukocyte Esterase Negative (Negative); Nitrite Negative (Negative); Protein,Urine Dip 30 (Negative); RBC 0-2 /HPF (0-5); Specific Gravity >=1.030 (1.005-1.030); WBC 0-2 /HPF (0-5)
[2023-07-07 17:30] LABS: Calcium Oxalate Crystals 0-2 /HPF (None Seen); Epithelial Cells Few /HPF (None Seen); Hyaline Casts 0-2 /LPF (0-2)
[2023-07-07 17:31] LABS: ADD URINE CULTURE? NO (NO)
[2023-07-07 17:33] LABS: ALBUMIN 4.7 g/dL (3.5-5.0); ANION GAP 15.4 MEQ/L (5-15); BILIRUBIN,TOTAL 0.5 mg/dL (0.2-1.3); Calcium 10.8 mg/dL (8.4-10.2); Creatinine 1 0.86 mg/dL (0.52-1.04); EST GLOMERULAR FILTRATION RATE 89.2 ML/MIN; Potassium 4.6 mmol/L (3.5-5.1); Total Protein 8.4 g/dL (6.3-8.2)
[2023-07-07] MEDS: Sodium Chloride 0.9% 1000 ML 1,000 ML IV STA (17:47)
[2023-07-07] MEDS ORDERED: Sodium Chloride 0.9% 1000 ML 1,000 ML ONE (17:47)
[2023-07-07 19:24] VITALS: BP 113/78; PULSE 93; RESP 18
--- NOTE | 2023-07-07 19:41 | ERPHSYRPT ---
- History of Present Illness Time Seen by Provider: 07/07/23 17:05 Source: patient Exam Limitations: no limitations Patient Subjective Stated Complaint: Abnormal labs-WBC 12.2 Triage Nursing Assessment: Patient ambulated back to ED and transferred self to bed. Patient A+O x3. Patient's skin pink, warm and dry. Patient states her PCP ordered some labs and a chest x ray. Patient states her dr told her to come to ER for fluids and due to her high wbc of 12.2. Patient denies pain or discomfort. Physician History: 37yo f presents to ED for "abnormal labs" obtained by her PCP yesterday. Pt states she has been feeling fatigued for the past 3d, saw her PCP yesterday who ordered cbc and cxr. Pt states the cxr was negative, but pcp recommended she come to the ED b/c her wbc was 12.0. Pt states she believes she is dehydrated, has not wanted to eat or drink much for the past several days. Pt denies any fevers, dysuria, n/v/abdominal pain, diarrhea, cp, soa, cough. Pt does endorse fatigue and some pain in her TMJ b/l that has been ongoing for months. Timing/Duration: today Allergies/Adverse Reactions: cefpodoxime Allergy (Intermediate, Verified 07/07/23 16:16) red, itchy rash cephalexin [From Keflex] Allergy (Verified 07/07/23 16:16) sulfamethoxazole [From Bactrim] Allergy (Verified 07/07/23 16:16) trimethoprim [From Bactrim] Allergy (Verified 07/07/23 16:16) vancomycin Allergy (Verified 07/07/23 16:16) Hives Home Medications: Levothyroxine Sodium [Synthroid] 274 mcg PO DAILY 09/01/11 [History] Folic Acid 1 mg PO DAILY 09/02/14 [History] Ergocalciferol (Vitamin D2) [Vitamin D] 1 tab PO WEEKLY 12/26/16 [History] Semaglutide [Rybelsus] 14 mg PO DAILY 06/27/22 [History] Guselkumab [Tremfya] 100 mg SQ UD 03/19/23 [History] Sucralfate 1 gm [Carafate 1 GM] 1 g PO UD 03/19/23 [History] Insulin Aspart [NovoLOG Insulin] 5 units SQ TIDWM MDD 10 units with supper meal 05/07/23 [History] Insulin Detemir [Levemir Flexpen] 15 unit SQ DAILY 05/07/23 [History] Hx Tetanus, Diphtheria Vaccination/Date Given: Yes Hx Influenza Vaccination/Date Given: No Hx Pneumococcal Vaccination/Date Given: No Travel Risk - International Travel Have you traveled outside of the country in past 3 weeks: No - Coronavirus Screening Are you exhibiting any of the following symptoms?: No Close contact with a COVID-19 positive Pt in past 14-21 Days: No - Vaccine Status Have you recieved a Covid-19 vaccination: Yes 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: [employer] - Vaccination Dates Date of 2cond Vaccination (if applicable): 02/08/21 - Review of Systems Constitutional: Fatigue, No Fever, No Chills Respiratory: No Cough, No Cyanosis, No Dyspnea Cardiac: No Chest Pain, No Edema, No Palpitations Abdominal/Gastrointestinal: No Abdominal Pain, No Nausea, No Vomiting, No Diarrhea, No Hematemesis, No Hematochezia Genitourinary Symptoms: No Dysuria, No Frequency, No Hematuria, No Incontinence, No Urgency - Past Medical History Pertinent Past Medical History: Yes Neurological History: No Pertinent History ENT History: No Pertinent History Cardiac History: No Pertinent History, Hypertension Respiratory History: Asthma, Sleep Apnea Endocrine Medical History: Diabetes Type I, Hypothyroidism Musculoskeletal History: Arthritis, Rheumatoid Arthritis GI Medical History: No Pertinent History, Hemorrhoids History: No Pertinent History Psycho-Social History: Anxiety, Depression Female Reproductive Disorders: No Pertinent History Other Medical History: PSORIASIS, OBESITY - Past Surgical History Past Surgical History: Yes Neuro Surgical History: No Pertinent History Cardiac: No Pertinent History Respiratory: No Pertinent History Gastrointestinal: No Pertinent History Genitourinary: No Pertinent History Musculoskeletal: No Pertinent History Female Surgical History: No Pertinent History Other Surgical History: 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 - Social History Smoking Status: Current every day smoker How long have you smoked: 22 yrs Exposure to second hand smoke: Yes Alcohol Use: None Drug Use: none Patient Lives Alone: No Significant Family History: diabetes - Female History Hx Last Menstrual Period: last week Hx Now: No - Nursing Vital Signs Nursing Vital Signs: Initial Vital Signs Temperature 97.3 F 07/07/23 16:18 Pulse Rate 100 H 07/07/23 16:18 Respiratory Rate 20 07/07/23 16:18 Blood Pressure 149/87 07/07/23 16:18 O2 Sat by Pulse Oximetry 100 07/07/23 16:18 Pain Scale Pain Intensity 0 - Physical Exam General Appearance: no apparent distress Respiratory Exam: normal breath sounds, lungs clear, airway intact, No chest tenderness, No respiratory distress, No diminished breath sounds Cardiovascular Exam: regular rate/rhythm, normal heart sounds, normal peripheral pulses, capillary refill <2 sec Gastrointestinal/Abdomen Exam: soft, normal bowel sounds, No tenderness, No distention Neurologic Exam: alert, oriented x 3, cooperative, normal mood/affect SpO2 Interpretation: normal SpO2: 100 O2 Delivery: Room Air Ordered Tests: Active Orders 24 hr Category Date Time Status CBC W DIFF Stat Lab 07/07/23 17:12 Completed CMP Stat Lab 07/07/23 17:12 Completed UA W/RFX UR CULTURE Stat Lab 07/07/23 17:05 Completed Medication Summary Discontinued Medications Generic Name Dose Route Start Last Admin Trade Name Freq PRN Reason Stop Dose Admin Sodium Chloride 1,000 mls @ 999 mls/hr 07/07/23 17:33 07/07/23 19:12 Sodium Chloride 0.9% 1000 Ml IV 07/07/23 18:33 Infused .Q1H1M STA Infusion Sodium Chloride Confirm 07/07/23 17:47 Sodium Chloride 0.9% 1000 Ml Administered 07/07/23 17:48 Dose 1,000 mls @ ud .ROUTE .STK-MED ONE Lab/Rad Data: Laboratory Result Diagrams 07/07/23 17:12 07/07/23 17:12 Laboratory Results 07/07/23 07/07/23 07/07/23 Range/Units 17:12 17:12 17:05 WBC 12.9 H (4.0-10.5) x10^3/uL RBC 5.14 (4.1-5.4) x10^6/uL Hgb 16.0 (12.0-16.0) g/dL Hct 50.1 H (35-47) % MCV 97.5 (78-100) fL MCH 31.1 (26-32) pg MCHC 31.9 L (32-36) g/dL RDW 12.9 (11.5-14.0) % Plt Count 283 (150-450) x10^3/uL MPV 9.4 (7.5-11.0) fL Gran % 68.8 H (36.0-66.0) % Immature Gran % (Auto) 1.9 H (0.00-0.4) % Nucleat RBC Rel Count 0.0 (0.00-0.1) % Eos # (Auto) 0.41 (0-0.5) x10^3/uL Immature Gran # (Auto) 0.24 H (0.00-0.03) x10^3u/L Absolute Lymphs (auto) 2.40 (1.0-4.6) x10^3/uL Absolute Monos (auto) 0.79 (0.0-1.3) x10^3/uL Absolute Nucleated RBC 0.00 (0.00-0.01) x10^3u/L Lymphocytes % 18.6 L (24.0-44.0) % Monocytes % 6.1 (0.0-12.0) % Eosinophils % 3.2 (0.00-5.0) % Basophils % 1.4 (0.0-0.4) % Absolute Granulocytes 8.88 H (1.4-6.9) x10^3/uL Basophils # 0.18 (0-0.4) x10^3/uL Sodium 137 (135-145) mmol/L Potassium 4.6 (3.5-5.1) mmol/L Chloride 98 (98-107) mmol/L Carbon Dioxide 29 (22-30) mmol/L Anion Gap 15.4 H (5-15) MEQ/L BUN 17 (7-17) mg/dL Creatinine 0.86 (0.52-1.04) mg/dL Estimated GFR 89.2 ML/MIN Glucose 149 H (74-106) mg/dL Calcium 10.8 H (8.4-10.2) mg/dL Total Bilirubin 0.50 (0.2-1.3) mg/dL AST 30 (14-36) U/L ALT 27 (0-35) U/L Alkaline Phosphatase 58 (38-126) U/L Serum Total Protein 8.4 H (6.3-8.2) g/dL Albumin 4.7 (3.5-5.0) g/dL Urine Color Dark Yellow A (Yellow) Urine Appearance Cloudy A (Clear) Urine pH 5.0 (4.6-8.0) Ur Specific [place] >=1.030 A (1.005-1.030) Urine Protein 30 (Negative) Urine Glucose (UA) 100 A (Negative) mg/dL Urine Ketones Trace A (Negative) Urine Blood Negative (Negative) Urine Nitrite Negative (Negative) Urine Bilirubin Small A (Negative) Urine Urobilinogen 1.0 A (0.2) mg/dL Ur Leukocyte Esterase Negative (Negative) U Hyaline Cast (Auto) 0-2 (0-2) /LPF Urine Microscopic RBC 0-2 (0-5) /HPF Urine Microscopic WBC 0-2 (0-5) /HPF Ur Epithelial Cells Few (None Seen) /HPF Calcium Oxalate Crystal 0-2 A (None Seen) /HPF Urine Bacteria Rare A (None Seen) /HPF Urine Culture Reflexed NO (NO) - Progress Progress: improved Progress Note: 07/07/23 19:39 wbc 12.9 UA showed mild glucose and few ketones, cmp largely unremarkable given 1L IV NS bolus, pt reports feeling better, is now hungry and ready to go home plan for dc home w/ PCP f/u - [facility] instructed to return to ED if she develops chest pain, fevers that do not resol ve w/ tylenol/ibuprofen, uncontrollable n/v Medical Desision Making - Risk of complications Minimal Risk: Minimal risk of morbidity - Departure Departure Disposition: Home Clinical Impression: Mild dehydration Fatigue Qualifiers: Fatigue type: other Qualified Code(s): R53.83 - Other fatigue Condition: Stable Critical Care Time: No Referrals: [facility], [facility] [Primary Care Provider] - Follow up/PCP as directed Additional Instructions: plan for dc home w/ PCP f/u - [facility] instructed to return to ED if she develops chest pain, fevers that do not resolve w/ tylenol/ibuprofen, uncontrollable n/v
== END 2023-07-07 19:51 | disposition home or self-care (01) ==
LOC: ED 14:26
DX: E86.0 Dehydration (principal); R53.83 Other fatigue; D72.829 Elevated white blood cell count, unspecified; F17.200 Nicotine dependence, unspecified, uncomplicated; Z20.828 Contact with and (suspected) exposure to other viral communicable diseases
CPT/HCPCS: 36000; 36415; 80053; 81001; 85025; 96360; 99283

== ENCOUNTER 2023-07-18 15:14 | Emergency (ER) | payer MEDICARE ==
--- NOTE | 2023-07-18 15:39 | ERPHSYRPT ---
- History of Present Illness Time Seen by Provider: 07/18/23 15:38 Source: patient Exam Limitations: no limitations Patient Subjective Stated Complaint: Right knee pain Triage Nursing Assessment: 37 yr old female pt arrives to ED via POV. Pt ambul atory to room 10. Pt presents with complaints on right knee pain. Pt is rating her pain as a 10/10. Pt denies fall or injury. Pt reports that the pain started about 2 days ago. There is no swelling, redness or bruising. Pedal pulse present. No other issues at this time Physician History: This is a morbidly obese 37-year-old white female patient who presents with pain in the inner aspect of her right knee. She does not recall any specific fall or trauma to the area. She does not have calf pain. She does not have chest pain. She does not have shortness of breath. The pain has been present for 2 days. Patient states that she has Cochran at home and she last took a tablet 15 hours prior to her arrival here. She states that did not help much. Patient states that she has been alternating ice and heat to this area. Method of Injury: unknown Occurred: days ago (2) Quality: constant, aching Severity of Pain-Max: moderate Severity of Pain-Current: moderate Lower Extremities Pain: knee: right (Medial aspect) Modifying Factors: Improves With: movement Associated Symptoms: other (Hurts to bear weight and hurts on palpation. Patient is still able to ambulate.) Allergies/Adverse Reactions: cefpodoxime Allergy (Intermediate, Verified 07/18/23 15:28) red, itchy rash cephalexin [From Keflex] Allergy (Verified 07/18/23 15:28) sulfamethoxazole [From Bactrim] Allergy (Verified 07/18/23 15:28) trimethoprim [From Bactrim] Allergy (Verified 07/18/23 15:28) vancomycin Allergy (Verified 07/18/23 15:28) Hives Home Medications: Levothyroxine Sodium [Synthroid] 274 mcg PO DAILY 09/01/11 [History] Folic Acid 1 mg PO DAILY 09/02/14 [History] Ergocalciferol (Vitamin D2) [Vitamin D] 1 tab PO WEEKLY 12/26/16 [History] Semaglutide [Rybelsus] 14 mg PO DAILY 06/27/22 [History] Guselkumab [Tremfya] 100 mg SQ UD 03/19/23 [History] Sucralfate 1 gm [Carafate 1 GM] 1 g PO UD 03/19/23 [History] Insulin Aspart [NovoLOG Insulin] 5 units SQ TIDWM MDD 10 units with supper meal 05/07/23 [History] Insulin Detemir [Levemir Flexpen] 15 unit SQ DAILY 05/07/23 [History] Hx Tetanus, Diphtheria Vaccination/Date Given: Yes Hx Influenza Vaccination/Date Given: No Hx Pneumococcal Vaccination/Date Given: No Immunizations Up to Date: No Travel Risk - International Travel Have you traveled outside of the country in past 3 weeks: No - Emerging Infectious Disease Are you exhibiting symptoms associated with any current EIDs: No - Review of Systems Constitutional: No Symptoms Eyes: No Symptoms Ears, Nose, & Throat: No Symptoms Respiratory: No Symptoms Cardiac: No Symptoms Abdominal/Gastrointestinal: No Symptoms Genitourinary Symptoms: No Symptoms Musculoskeletal: Joint Pain Skin: No Symptoms (Medial aspect right knee) Neurological: No Symptoms Psychological: No Symptoms Endocrine: No Symptoms Hematologic/Lymphatic: No Symptoms Immunological/Allergic: No Symptoms All Other Systems: Reviewed and Negative - Past Medical History Pertinent Past Medical History: Yes Neurological History: No Pertinent History ENT History: No Pertinent History Cardiac History: No Pertinent History, Hypertension Respiratory History: Asthma, Sleep Apnea Endocrine Medical History: Diabetes Type I, Hypothyroidism Musculoskeletal History: Arthritis, Rheumatoid Arthritis GI Medical History: No Pertinent History, Hemorrhoids History: No Pertinent History Psycho-Social History: Anxiety, Depression Female Reproductive Disorders: No Pertinent History Other Medical History: psoriasis - Past Surgical History Past Surgical History: Yes Neuro Surgical History: No Pertinent History Cardiac: No Pertinent History Respiratory: No Pertinent History Gastrointestinal: No Pertinent History Genitourinary: No Pertinent History Musculoskeletal: No Pertinent History Female Surgical History: No Pertinent History Other Surgical History: 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omen Significant Family History: diabetes - Female History Hx Last Menstrual Period: 06/27/2023 Hx Now: No - Social History Smoking Status: Current every day smoker How long have you smoked: 20 years Exposure to second hand smoke: Yes Alcohol Use: None Drug Use: none Patient Lives Alone: No - Nursing Vital Signs Nursing Vital Signs: Initial Vital Signs Temperature 97.1 F 07/18/23 15:14 Pulse Rate 107 H 07/18/23 15:14 Respiratory Rate 20 07/18/23 15:14 Blood Pressure 137/68 07/18/23 15:14 O2 Sat by Pulse Oximetry 98 07/18/23 15:14 Pain Scale Pain Intensity 10 - Physical Exam General Appearance: no apparent distress, alert, obese Eyes, Ears, Nose, Throat Exam: normal ENT inspection, moist mucous membranes Neck Exam: normal inspection, non-tender, supple, full range of motion Cardiovascular/Respiratory Exam: chest non-tender, no respiratory distress Gastrointestinal/Abdominal Exam: non-tender Back Exam: normal inspection, normal range of motion, No CVA tenderness, No vertebral tenderness Hips Exam: bilateral: non-tender, normal inspection, normal range of motion, no evidence of injury Legs Exam: bilateral leg: non-tender, normal inspection, normal range of motion, no evidence of injury Knees Exam: right knee: non-tender, bilateral knee: normal inspection, normal range of motion, no evidence of injury Ankle Exam: bilateral ankle: non-tender, normal inspection, normal range of motion, no evidence of injury Foot Exam: bilateral foot: non-tender, normal inspection, normal range of motion, no evidence of injury Neuro/Tendon Exam: normal sensation, normal motor functions, normal tendon functions, responds to pain, no evidence tendon injury Mental Status Exam: alert, oriented x 3, cooperative Skin Exam: normal color, warm, dry SpO2 Interpretation: normal SpO2: 98 O2 Delivery: Room Air - Course Nursing assessment & vital signs reviewed: Yes Ordered Tests: Active Orders 24 hr Category Date Time Status KNEE (3 VIEWS) Stat Exams 07/18/23 15:21 Taken Medication Summary Discontinued Medications Generic Name Dose Route Start Last Admin Trade Name Ryan PRN Reason Stop Dose Admin Hydromorphone HCl 0.5 mg 07/18/23 15:54 Hydromorphone 1 Mg/1ml Inj IM 07/18/23 15:55 STAT ONE Ondansetron HCl 4 mg 07/18/23 15:54 Zofran 4 Mg/Udtablet Orally Disintegrating PO 07/18/23 15:55 STAT ONE - Progress Progress: improved, pain not gone completely Progress Note: 07/18/23 15:59 This patient's medical issue is 1 of low complexity. The level of complexity and the workup performed is based on review of the patient's past medical history, review the patient's medication list, review patient drug allergy list, history present illness and physical findings on examination. The workup in this patient includes x-ray of the patient's right knee. 07/18/23 16:03 I interpreted this patient's right knee x-ray. I see significant bone spur on the medial aspect of the proximal tibia. There are no acute fractures or dislocations present. Counseled pt/family regarding: diagnosis, need for follow-up, rad results Medical Desision Making - Diagnostic Testing Diagnostic test were ordered, analyzed, and reviewed by me: Yes Radiological Interpretation: Interpreted by me - Risk of complications Minimal Risk: Minimal risk of morbidity - Departure Departure Disposition: Home Clinical Impression: Bone spur, Right medial knee pain Condition: Stable Critical Care Time: No Referrals: CASSIE GUNN [employer] ANALYST [Primary Care Provider] - Follow up/PCP as directed Additional Instructions: Ice pack to tender area 3 times a day for the next 48 hours. Continue your Cochran medication as prescribed. Follow-up at the [facility] orthopedic clinic on 07/21/2023. It is a walk-in clinic and you do not need to have an appointment. Make sure you are there between the hours of 8 and 9 AM on 07/21/2023.
[2023-07-18 16:05] VITALS: TEMP 97.1
[2023-07-18] MEDS: Hydromorphone 1 mg/ml Injection IM ONE (16:25)
[2023-07-18] MEDS: ZOFRAN ODT 4 MG PO ONE (16:25)
--- NOTE | 2023-07-18 16:28 | XRAY ---
Indication: Pain. Comparison: None 3 view right knee demonstrates minimal medial joint space narrowing/spurring, tiny lateral joint space spurring, tiny bony exostosis medial tibial plateau, and mild scattered medial/lateral subcutaneous venous varicosities. No other bony, articular, or soft tissue abnormalities.
[2023-07-18] MEDS ORDERED: ZOFRAN ODT 4 MG ONE (16:32)
[2023-07-18] MEDS ORDERED: Hydromorphone 1 mg/ml Injection ONE (16:32)
[2023-07-18 16:44] VITALS: BP 145/84; PULSE 92; RESP 18; O2SAT 97
== END 2023-07-18 16:44 | disposition home or self-care (01) ==
LOC: ED 15:14
DX: M76.9 Unspecified enthesopathy, lower limb, excluding foot (principal); M25.561 Pain in right knee; E10.9 Type 1 diabetes mellitus without complications; I10 Essential (primary) hypertension; Z79.84 Long term (current) use of oral hypoglycemic drugs; Z79.4 Long term (current) use of insulin; Z79.899 Other long term (current) drug therapy; Z72.0 Tobacco use
CPT/HCPCS: 73562; 96372; 99283; J1170; Q0162

== ENCOUNTER 2023-10-05 09:27 | Emergency (ER) | payer MEDICARE ==
--- NOTE | 2023-10-05 09:55 | ERPHSYRPT ---
- History of Present Illness Time Seen by Provider: 10/05/23 09:49 Source: patient, family Exam Limitations: no limitations Physician History: pt developed palpitations this morning while answering phone about a relative. SHe checked with a pulse Ox monitor at home and it read 175-200 rate. No CP, but some SObreath and nausea - no abd pain. Hx psoriasis and anxiety and recent change anx meds to clonopin. Normal mental status abd neuro exam. Chest clear Ht reg without M. Abd soft nontender without peritoneal signs or masses. Ext with 1 + edema. and chronic deep venous insufficiency and cellulitis per pt. Discussed risks/benefits with pt and available family for testing /Tx CBC, Thyroid, CMP, EKG, BNP, Trop D DImer, UA, CXR, ASA, and they wish to proceed so these are ordered. Results discussed with pt and family. Timing/Duration: today Activities at Onset: emotional stress Quality: other (no pain) Location: other (no pain) Chest Pain Radiation: no radiation Severity of Pain-Max: none Severity of Pain-Current: none Modifying Factors: Improves With: nothing Nitro Today/Relief: no nitro taken today Aspirin Treatment Today: 81 mg x 4, provided by ED Associated Symptoms: nausea, shortness of breath Prior Chest Pain/Cardiac Workup: no prior chest pain Allergies/Adverse Reactions: cefpodoxime Allergy (Intermediate, Verified 10/05/23 10:02) red, itchy rash cephalexin [From Keflex] Allergy (Verified 10/05/23 10:02) sulfamethoxazole [From Bactrim] Allergy (Verified 10/05/23 10:02) trimethoprim [From Bactrim] Allergy (Verified 10/05/23 10:02) vancomycin Allergy (Verified 10/05/23 10:02) Hives Home Medications: Levothyroxine Sodium [Synthroid] 274 mcg PO DAILY 09/01/11 [History] Folic Acid 1 mg PO DAILY 09/02/14 [History] Ergocalciferol (Vitamin D2) [Vitamin D] 1 tab PO WEEKLY 12/26/16 [History] Semaglutide [Rybelsus] 14 mg PO DAILY 06/27/22 [History] Guselkumab [Tremfya] 100 mg SQ UD 03/19/23 [History] Sucralfate 1 gm [Carafate 1 GM] 1 g PO UD 03/19/23 [History] Insulin Aspart [NovoLOG Insulin] 5 units SQ TIDWM MDD 10 units with supper meal 05/07/23 [History] Insulin Detemir [Levemir Flexpen] 15 unit SQ DAILY 05/07/23 [History] Hx Tetanus, Diphtheria Vaccination/Date Given: Yes Hx Influenza Vaccination/Date Given: No Hx Pneumococcal Vaccination/Date Given: No Travel Risk - Emerging Infectious Disease Are you exhibiting symptoms associated with any current EIDs: No - Review of Systems Constitutional: No Fever, No Chills Eyes: No Symptoms Ears, Nose, & Throat: No Symptoms Respiratory: Dyspnea, No Cough Cardiac: Palpitations, No Chest Pain, No Edema, No Syncope Abdominal/Gastrointestinal: Nausea, No Abdominal Pain, No Vomiting, No Diarrhea Genitourinary Symptoms: No Dysuria Musculoskeletal: No Back Pain, No Neck Pain Skin: No Rash Neurological: No Dizziness, No Focal Weakness, No Sensory Changes Psychological: No Symptoms Endocrine: No Symptoms Hematologic/Lymphatic: No Symptoms Immunological/Allergic: No Symptoms All Other Systems: Reviewed and Negative - Past Medical History Pertinent Past Medical History: Yes Neurological History: No Pertinent History ENT History: No Pertinent History Cardiac History: No Pertinent History, Hypertension Respiratory History: Asthma, Sleep Apnea Endocrine Medical History: Diabetes Type I, Hypothyroidism Musculoskeletal History: Arthritis, Rheumatoid Arthritis GI Medical History: No Pertinent History, Hemorrhoids History: No Pertinent History Psycho-Social History: Anxiety, Depression Female Reproductive Disorders: No Pertinent History Other Medical History: PSORIASIS, OBESITY - Past Surgical History Past Surgical History: Yes Neuro Surgical History: No Pertinent History Cardiac: No Pertinent History Respiratory: No Pertinent History Gastrointestinal: No Pertinent History Genitourinary: No Pertinent History Musculoskeletal: No Pertinent History Female Surgical History: No Pertinent History Other Surgical History: 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 Significant Family History: diabetes - Social History Smoking Status: Current every day smoker How long have you smoked: 22 yrs Exposure to second hand smoke: Yes Alcohol Use: None Drug Use: none Patient Lives Alone: No - Social Determinants of Health Will the patient participate in the screening: Yes Do you worry about a steady place to live?: No In the past 12 months,have you had to go without utilities?: No Transportation Issues: No Has anyone in your support network made you feel unsafe?: No Have you or anyone in your house had to go without enough: No - Nursing Vital Signs Nursing Vital Signs: Initial Vital Signs Temperature 97.8 F 10/05/23 09:28 Pulse Rate 90 10/05/23 09:28 Respiratory Rate 18 10/05/23 09:28 Blood Pressure 117/75 10/05/23 09:28 O2 Sat by Pulse Oximetry 96 10/05/23 09:28 Pain Scale Pain Intensity 4 - Physical Exam General Appearance: no apparent distress, alert Eye Exam: PERRL/EOMI, eyes nml inspection Ears, Nose, Throat Exam: normal ENT inspection, moist mucous membranes Neck Exam: normal inspection, non-tender, supple Respiratory Exam: normal breath sounds, lungs clear, No respiratory distress Cardiovascular Exam: regular rate/rhythm, normal heart sounds, No edema Gastrointestinal/Abdomen Exam: soft, No tenderness, No mass Pelvic Exam: deferred Rectal Exam: deferred Back Exam: normal inspection, No CVA tenderness, No vertebral tenderness Extremity Exam: normal inspection, normal range of motion Neurologic Exam: alert, oriented x 3, cooperative, normal mood/affect, nml cerebellar function, sensation nml, No motor deficits Skin Exam: normal color, warm, dry Lymphatic Exam: No adenopathy SpO2 Interpretation: normal SpO2: 99 O2 Delivery: Room Air - Course Nursing assessment & vital signs reviewed: Yes EKG Interpreted by Me: Sinus Rhythm, NORMAL AXIS, NORMAL INTERVALS, Non-specific ST Changes, Other (poor R wave prog) - Radiology Exams Chest X-ray Interpretation: Interpreted by me, Reviewed by me, Other (interstitial pattern possible infiltrates. ) Ordered Tests: Active Orders 24 hr Category Date Time Status Finished Garment Inspector STAT Care 10/05/23 09:56 Active EKG-ER Only STAT Care 10/05/23 09:55 Active IV Insertion STAT Care 10/05/23 09:55 Active Pulse Oximetry (ED) STAT Care 10/05/23 09:55 Active CHEST 1 VIEW (PORTABLE) Stat Exams 10/05/23 11:16 Taken CBC W DIFF Stat Lab 10/05/23 10:15 Completed CMP Stat Lab 10/05/23 10:15 Completed D-DIMER QUANTITATIVE Stat Lab 10/05/23 10:15 Completed HCG QUALITATIVE, SERUM Stat Lab 10/05/23 Completed Lactic Acid Stat Lab 10/05/23 09:55 Completed Lactic Acid Stat Lab 10/05/23 12:32 Completed NT PRO BNPII Stat Lab 10/05/23 10:15 Completed POCT GLUCOSE Stat Lab 10/05/23 10:08 Completed TROPONIN Q4H Lab 10/05/23 10:15 Completed TROPONIN Q4H Lab 10/05/23 14:05 Completed TROPONIN Q4H Lab 10/05/23 18:00 Ordered TSH [TSH, 3RD Generation] Stat Lab 10/05/23 10:15 Completed UA W/RFX UR CULTURE Stat Lab 10/05/23 11:06 Completed Medication Summary Generic Name Dose Route Start Last Admin Trade Name Freq PRN Reason Stop Dose Admin Sodium Chloride 1,000 mls @ 50 mls/hr 10/05/23 10:00 10/05/23 10:36 Sodium Chloride 0.9% 1000 Ml IV 11/04/23 09:59 50 mls/hr .Q20H KAILA Administration Discontinued Medications Generic Name Dose Route Start Last Admin Trade Name Freq PRN Reason Stop Dose Admin Aspirin 324 mg 10/05/23 09:55 10/05/23 10:36 Aspirin 81 Mg Tab.Chew PO 10/05/23 09:56 324 mg STAT ONE Administration Aspirin Confirm 10/05/23 10:35 Aspirin 81 Mg Tab.Chew Administered 10/05/23 10:36 Dose 324 mg .ROUTE .[employer]-MED ONE Lab/Rad Data: Laboratory Result Diagrams 10/05/23 10:15 10/05/23 10:15 Laboratory Results 10/05/23 10/05/23 10/05/23 Range/Units Unknown 14:05 12:32 WBC (3.98-10.04) x10^3/uL RBC (3.93-5.22) x10^6/uL Hgb (11.2-15.7) g/dL Hct (34.1-44.9) % MCV (79.4-94.8) fL MCH (25.6-32.2) pg MCHC (32.2-35.5) g/dL RDW (11.7-14.4) % Plt Count (182-369) x10^3/uL MPV (9.4-12.3) fL Gran % (34.0-71.1) % Immature Gran % (Auto) (0.001-0.429) % Nucleat RBC Rel Count (0.00-0.2) % Eos # (Auto) (0.04-0.36) x10^3/uL Immature Gran # (Auto) (0.001-0.031) x10^3u/L Absolute Lymphs (auto) (1.18-3.74) x10^3/uL Absolute Monos (auto) (0.24-0.86) x10^3/uL Absolute Nucleated RBC (0.00-0.012) x10^3u/L Lymphocytes % (19.3-51.7) % Monocytes % (4.7-12.5) % Eosinophils % (0.7-5.8) % Basophils % (0.1-1.2) % Absolute Granulocytes (1.56-6.13) x10^3/uL Basophils # (0.01-0.08) x10^3/uL D-Dimer (0.0-0.50) mg/L Sodium (135-145) mmol/L Potassium (3.5-5.1) mmol/L Chloride (98-107) mmol/L Carbon Dioxide (22-30) mmol/L Anion Gap (5-15) MEQ/L BUN (7-17) mg/dL Creatinine (0.52-1.04) mg/dL Estimated GFR ML/MIN Glucose (74-106) mg/dL POC Glucometer (74 to 106) mg/dL Lactic Acid 2.4 H (0.4-2.0) Calcium (8.4-10.2) mg/dL Total Bilirubin (0.2-1.3) mg/dL AST (14-36) U/L ALT (0-35) U/L Alkaline Phosphatase (38-126) U/L Troponin I < 0.012 (0.000-0.033) ng/mL NT-Pro-B Natriuret Pep (<300) pg/mL Serum Total Protein (6.3-8.2) g/dL Albumin (3.5-5.0) g/dL TSH 3rd Generation (0.470-4.680) mIU/L Serum HCG, Qual NEGATIVE (NEGATIVE) Urine Color (Yellow) Urine Appearance (Clear) Urine pH (4.6-8.0) Ur Specific [place] (1.005-1.030) Urine Protein (Negative) Urine Glucose (UA) (Negative) mg/dL Urine Ketones (Negative) Urine Blood (Negative) Urine Nitrite (Negative) Urine Bilirubin (Negative) Urine Urobilinogen (0.2) mg/dL Ur Leukocyte Esterase (Negative) U Hyaline Cast (Auto) (0-2) /LPF Urine Microscopic RBC (0-5) /HPF Urine Microscopic WBC (0-5) /HPF Ur Epithelial Cells (None Seen) /HPF Urine Bacteria (None Seen) /HPF Urine Culture Reflexed (NO) Influenza Type A Ag (NEGATIVE) Influenza Type B Ag (NEGATIVE) RSV (PCR) (NEGATIVE) SARS-CoV-2 (PCR) (NEGATIVE) 10/05/23 10/05/23 10/05/23 Range/Units 11:06 10:15 10:15 WBC (3.98-10.04) x10^3/uL RBC (3.93-5.22) x10^6/uL Hgb (11.2-15.7) g/dL Hct (34.1-44.9) % MCV (79.4-94.8) fL MCH (25.6-32.2) pg MCHC (32.2-35.5) g/dL RDW (11.7-14.4) % Plt Count (182-369) x10^3/uL MPV (9.4-12.3) fL Gran % (34.0-71.1) % Immature Gran % (Auto) (0.001-0.429) % Nucleat RBC Rel Count (0.00-0.2) % Eos # (Auto) (0.04-0.36) x10^3/uL Immature Gran # (Auto) (0.001-0.031) x10^3u/L Absolute Lymphs (auto) (1.18-3.74) x10^3/uL Absolute Monos (auto) (0.24-0.86) x10^3/uL Absolute Nucleated RBC (0.00-0.012) x10^3u/L Lymphocytes % (19.3-51.7) % Monocytes % (4.7-12.5) % Eosinophils % (0.7-5.8) % Basophils % (0.1-1.2) % Absolute Granulocytes (1.56-6.13) x10^3/uL Basophils # (0.01-0.08) x10^3/uL D-Dimer (0.0-0.50) mg/L Sodium (135-145) mmol/L Potassium (3.5-5.1) mmol/L Chloride (98-107) mmol/L Carbon Dioxide (22-30) mmol/L Anion Gap (5-15) MEQ/L BUN (7-17) mg/dL Creatinine (0.52-1.04) mg/dL Estimated GFR ML/MIN Glucose (74-106) mg/dL POC Glucometer (74 to 106) mg/dL Lactic Acid (0.4-2.0) Calcium (8.4-10.2) mg/dL Total Bilirubin (0.2-1.3) mg/dL AST (14-36) U/L ALT (0-35) U/L Alkaline Phosphatase (38-126) U/L Troponin I (0.000-0.033) ng/mL NT-Pro-B Natriuret Pep 29.1 (<300) pg/mL Serum Total Protein (6.3-8.2) g/dL Albumin (3.5-5.0) g/dL TSH 3rd Generation 282.300 H (0.470-4.680) mIU/L Serum HCG, Qual (NEGATIVE) Urine Color Yellow (Yellow) Urine Appearance Clear (Clear) Urine pH 6.5 (4.6-8.0) Ur Specific [place] 1.015 (1.005-1.030) Urine Protein 30 (Negative) Urine Glucose (UA) 100 A (Negative) mg/dL Urine Ketones Negative (Negative) Urine Blood Negative (Negative) Urine Nitrite Negative (Negative) Urine Bilirubin Negative (Negative) Urine Urobilinogen 0.2 (0.2) mg/dL Ur Leukocyte Esterase Negative (Negative) U Hyaline Cast (Auto) NONE SEEN (0-2) /LPF Urine Microscopic RBC 0-2 (0-5) /HPF Urine Microscopic WBC 0-2 (0-5) /HPF Ur Epithelial Cells Rare (None Seen) /HPF Urine Bacteria None Seen (None Seen) /HPF Urine Culture Reflexed NO (NO) Influenza Type A Ag (NEGATIVE) Influenza Type B Ag (NEGATIVE) RSV (PCR) (NEGATIVE) SARS-CoV-2 (PCR) (NEGATIVE) 10/05/23 10/05/23 10/05/23 Range/Units 10:15 10:15 10:15 WBC (3.98-10.04) x10^3/uL RBC (3.93-5.22) x10^6/uL Hgb (11.2-15.7) g/dL Hct (34.1-44.9) % MCV (79.4-94.8) fL MCH (25.6-32.2) pg MCHC (32.2-35.5) g/dL RDW (11.7-14.4) % Plt Count (182-369) x10^3/uL MPV (9.4-12.3) fL Gran % (34.0-71.1) % Immature Gran % (Auto) (0.001-0.429) % Nucleat RBC Rel Count (0.00-0.2) % Eos # (Auto) (0.04-0.36) x10^3/uL Immature Gran # (Auto) (0.001-0.031) x10^3u/L Absolute Lymphs (auto) (1.18-3.74) x10^3/uL Absolute Monos (auto) (0.24-0.86) x10^3/uL Absolute Nucleated RBC (0.00-0.012) x10^3u/L Lymphocytes % (19.3-51.7) % Monocytes % (4.7-12.5) % Eosinophils % (0.7-5.8) % Basophils % (0.1-1.2) % Absolute Granulocytes (1.56-6.13) x10^3/uL Basophils # (0.01-0.08) x10^3/uL D-Dimer 0.23 (0.0-0.50) mg/L Sodium 133 L (135-145) mmol/L Potassium 4.4 (3.5-5.1) mmol/L Chloride 101 (98-107) mmol/L Carbon Dioxide 24 (22-30) mmol/L Anion Gap 12.1 (5-15) MEQ/L BUN 13 (7-17) mg/dL Creatinine 0.75 (0.52-1.04) mg/dL Estimated GFR 105.1 ML/MIN Glucose 226 H (74-106) mg/dL POC Glucometer (74 to 106) mg/dL Lactic Acid (0.4-2.0) Calcium 8.6 (8.4-10.2) mg/dL Total Bilirubin 0.50 (0.2-1.3) mg/dL AST 22 (14-36) U/L ALT 20 (0-35) U/L Alkaline Phosphatase 84 (38-126) U/L Troponin I < 0.012 (0.000-0.033) ng/mL NT-Pro-B Natriuret Pep (<300) pg/mL Serum Total Protein 7.5 (6.3-8.2) g/dL Albumin 3.9 (3.5-5.0) g/dL TSH 3rd Generation (0.470-4.680) mIU/L Serum HCG, Qual (NEGATIVE) Urine Color (Yellow) Urine Appearance (Clear) Urine pH (4.6-8.0) Ur Specific [place] (1.005-1.030) Urine Protein (Negative) Urine Glucose (UA) (Negative) mg/dL Urine Ketones (Negative) Urine Blood (Negative) Urine Nitrite (Negative) Urine Bilirubin (Negative) Urine Urobilinogen (0.2) mg/dL Ur Leukocyte Esterase (Negative) U Hyaline Cast (Auto) (0-2) /LPF Urine Microscopic RBC (0-5) /HPF Urine Microscopic WBC (0-5) /HPF Ur Epithelial Cells (None Seen) /HPF Urine Bacteria (None Seen) /HPF Urine Culture Reflexed (NO) Influenza Type A Ag (NEGATIVE) Influenza Type B Ag (NEGATIVE) RSV (PCR) (NEGATIVE) SARS-CoV-2 (PCR) (NEGATIVE) 10/05/23 10/05/23 10/05/23 Range/Units 10:15 10:10 10:08 WBC 10.9 H (3.98-10.04) x10^3/uL RBC 4.71 (3.93-5.22) x10^6/uL Hgb 14.7 (11.2-15.7) g/dL Hct 46.5 H (34.1-44.9) % MCV 98.7 H (79.4-94.8) fL MCH 31.2 (25.6-32.2) pg MCHC 31.6 L (32.2-35.5) g/dL RDW 13.9 (11.7-14.4) % Plt Count 196 (182-369) x10^3/uL MPV 9.8 (9.4-12.3) fL Gran % 69.4 (34.0-71.1) % Immature Gran % (Auto) 2.4 H (0.001-0.429) % Nucleat RBC Rel Count 0.0 (0.00-0.2) % Eos # (Auto) 0.34 (0.04-0.36) x10^3/uL Immature Gran # (Auto) 0.26 H (0.001-0.031) x10^3u/L Absolute Lymphs (auto) 1.85 (1.18-3.74) x10^3/uL Absolute Monos (auto) 0.79 (0.24-0.86) x10^3/uL Absolute Nucleated RBC 0.00 (0.00-0.012) x10^3u/L Lymphocytes % 16.9 L (19.3-51.7) % Monocytes % 7.2 (4.7-12.5) % Eosinophils % 3.1 (0.7-5.8) % Basophils % 1.0 (0.1-1.2) % Absolute Granulocytes 7.59 H (1.56-6.13) x10^3/uL Basophils # 0.11 H (0.01-0.08) x10^3/uL D-Dimer (0.0-0.50) mg/L Sodium (135-145) mmol/L Potassium (3.5-5.1) mmol/L Chloride (98-107) mmol/L Carbon Dioxide (22-30) mmol/L Anion Gap (5-15) MEQ/L BUN (7-17) mg/dL Creatinine (0.52-1.04) mg/dL Estimated GFR ML/MIN Glucose (74-106) mg/dL POC Glucometer 221 H (74 to 106) mg/dL Lactic Acid (0.4-2.0) Calcium (8.4-10.2) mg/dL Total Bilirubin (0.2-1.3) mg/dL AST (14-36) U/L ALT (0-35) U/L Alkaline Phosphatase (38-126) U/L Troponin I (0.000-0.033) ng/mL NT-Pro-B Natriuret Pep (<300) pg/mL Serum Total Protein (6.3-8.2) g/dL Albumin (3.5-5.0) g/dL TSH 3rd Generation (0.470-4.680) mIU/L Serum HCG, Qual (NEGATIVE) Urine Color (Yellow) Urine Appearance (Clear) Urine pH (4.6-8.0) Ur Specific [place] (1.005-1.030) Urine Protein (Negative) Urine Glucose (UA) (Negative) mg/dL Urine Ketones (Negative) Urine Blood (Negative) Urine Nitrite (Negative) Urine Bilirubin (Negative) Urine Urobilinogen (0.2) mg/dL Ur Leukocyte Esterase (Negative) U Hyaline Cast (Auto) (0-2) /LPF Urine Microscopic RBC (0-5) /HPF Urine Microscopic WBC (0-5) /HPF Ur Epithelial Cells (None Seen) /HPF Urine Bacteria (None Seen) /HPF Urine Culture Reflexed (NO) Influenza Type A Ag NEGATIVE (NEGATIVE) Influenza Type B Ag NEGATIVE (NEGATIVE) RSV (PCR) NEGATIVE (NEGATIVE) SARS-CoV-2 (PCR) NEGATIVE (NEGATIVE) 10/05/23 Range/Units 09:55 WBC (3.98-10.04) x10^3/uL RBC (3.93-5.22) x10^6/uL Hgb (11.2-15.7) g/dL Hct (34.1-44.9) % MCV (79.4-94.8) fL MCH (25.6-32.2) pg MCHC (32.2-35.5) g/dL RDW (11.7-14.4) % Plt Count (182-369) x10^3/uL MPV (9.4-12.3) fL Gran % (34.0-71.1) % Immature Gran % (Auto) (0.001-0.429) % Nucleat RBC Rel Count (0.00-0.2) % Eos # (Auto) (0.04-0.36) x10^3/uL Immature Gran # (Auto) (0.001-0.031) x10^3u/L Absolute Lymphs (auto) (1.18-3.74) x10^3/uL Absolute Monos (auto) (0.24-0.86) x10^3/uL Absolute Nucleated RBC (0.00-0.012) x10^3u/L Lymphocytes % (19.3-51.7) % Monocytes % (4.7-12.5) % Eosinophils % (0.7-5.8) % Basophils % (0.1-1.2) % Absolute Granulocytes (1.56-6.13) x10^3/uL Basophils # (0.01-0.08) x10^3/uL D-Dimer (0.0-0.50) mg/L Sodium (135-145) mmol/L Potassium (3.5-5.1) mmol/L Chloride (98-107) mmol/L Carbon Dioxide (22-30) mmol/L Anion Gap (5-15) MEQ/L BUN (7-17) mg/dL Creatinine (0.52-1.04) mg/dL Estimated GFR ML/MIN Glucose (74-106) mg/dL POC Glucometer (74 to 106) mg/dL Lactic Acid 2.3 H (0.4-2.0) Calcium (8.4-10.2) mg/dL Total Bilirubin (0.2-1.3) mg/dL AST (14-36) U/L ALT (0-35) U/L Alkaline Phosphatase (38-126) U/L Troponin I (0.000-0.033) ng/mL NT-Pro-B Natriuret Pep (<300) pg/mL Serum Total Protein (6.3-8.2) g/dL Albumin (3.5-5.0) g/dL TSH 3rd Generation (0.470-4.680) mIU/L Serum HCG, Qual (NEGATIVE) Urine Color (Yellow) Urine Appearance (Clear) Urine pH (4.6-8.0) Ur Specific [place] (1.005-1.030) Urine Protein (Negative) Urine Glucose (UA) (Negative) mg/dL Urine Ketones (Negative) Urine Blood (Negative) Urine Nitrite (Negative) Urine Bilirubin (Negative) Urine Urobilinogen (0.2) mg/dL Ur Leukocyte Esterase (Negative) U Hyaline Cast (Auto) (0-2) /LPF Urine Microscopic RBC (0-5) /HPF Urine Microscopic WBC (0-5) /HPF Ur Epithelial Cells (None Seen) /HPF Urine Bacteria (None Seen) /HPF Urine Culture Reflexed (NO) Influenza Type A Ag (NEGATIVE) Influenza Type B Ag (NEGATIVE) RSV (PCR) (NEGATIVE) SARS-CoV-2 (PCR) (NEGATIVE) - Progress Progress: improved, re-examined Air Movement: good Progress Note: 10/05/23 15:10 I explained to pt and family that we did not determine a cause for her episode of palpitations and that she needs further w/u hell[facility] Echo and EKG physio, and could have a cardiac event - and and that her thyroid is not compensated well enough as her TSH is very high still - they prefer outpt w/u rather than to be observed in ER or hospital and they have the capacity to make this choice, . SHe states they are adjusting this recently and she has no symptoms. No hypothyroid symptoms - on replacement and clinically stable. 10/05/23 15:25 HR is actually 80s . Blood Culture(s) Obtained: No Antibiotics given: No Counseled pt/family regarding: lab results, diagnosis, need for follow-up, rad results Medical Desision Making - Independent Historian Additional History obtained from: Spouse - Discussion of managment Reviewed:: Need for additional workup Agreed on:: Treatment plan, need for follow-up - Diagnostic Testing Diagnostic test were ordered, analyzed, and reviewed by me: Yes Radiological Interpretation: Interpreted by me, Reviewed by me - Risk of complications The pt has a mod risk of morbidity or mortality based on: Need for prescription drug management The pt has a high risk of morbidity or mortality based on: Decision regarding hospitilization or escalation of hosp level of care - Departure Departure Disposition: Home Clinical Impression: Heart palpitations Condition: Good Critical Care Time: No Referrals: [facility] [Primary Care Provider] - Follow up/PCP as directed Instructions: Palpitations (DC), Arrhythmias (DC), Hypothyroidism (underactive thyroid) Additional Instructions: We have not yet determined a cause for your palpitations or their nature so further workup is recommended. Followup with your Dr. PARADA this week for further workup to consider echo and other cardiac testing, and to recheck thyroid to see that the TSH is going down and that the thyroid replacement is doing its work. Return meantime if symptoms recur, chest pain, dizziness, vomiting, fever, short of breath, weakness, excess sleepiness, or any other symptoms of concern.
[2023-10-05 10:25] LABS: Absolute Neutrophil Ct (ANC) 7.59 x10^3/uL (1.56-6.13); Basophil (Absolute #) 0.11 x10^3/uL (0.01-0.08); Eosinophil % 3.1 % (0.7-5.8); Eosinophil (Absolute #) 0.34 x10^3/uL (0.04-0.36); Hematocrit 46.5 % (34.1-44.9); Hemoglobin 14.7 g/dL (11.2-15.7); IMMATURE GRAN # 0.26 x10^3u/L (0.001-0.031); IMMATURE GRAN % 2.4 % (0.001-0.429); Lymphocyte (Absolute #) 1.85 x10^3/uL (1.18-3.74); Lymphocytes % 16.9 % (19.3-51.7); Mean Cell Volume 98.7 fL (79.4-94.8); Mean Corpuscular Hemoglobin 31.2 pg (25.6-32.2); Mean Corpuscular Hgb Concent. 31.6 g/dL (32.2-35.5); Mean Platelet Volume 9.8 fL (9.4-12.3); Monocyte (Absolute #) 0.79 x10^3/uL (0.24-0.86); Monocytes % 7.2 % (4.7-12.5); Neutrophil % 69.4 % (34.0-71.1); Platelet Count 196 x10^3/uL (182-369); Red Blood Count 4.71 x10^6/uL (3.93-5.22); Red Cell Distribution Width 13.9 % (11.7-14.4); White Blood Count 10.9 x10^3/uL (3.98-10.04)
[2023-10-05 10:27] VITALS: TEMP 97.8
[2023-10-05] MEDS ORDERED: Sodium Chloride 0.9% 1000 ML 1,000 ML ONE (10:35)
[2023-10-05] MEDS ORDERED: BABY ASPIRIN 81 MG CHEW ONE (10:35)
[2023-10-05] MEDS: BABY ASPIRIN 81 MG CHEW PO ONE (10:36)
[2023-10-05] MEDS: Sodium Chloride 0.9% 1000 ML 1,000 ML IV SCH (10:36)
[2023-10-05 10:46] LABS: ALBUMIN 3.9 g/dL (3.5-5.0); ANION GAP 12.1 MEQ/L (5-15); BILIRUBIN,TOTAL 0.5 mg/dL (0.2-1.3); Calcium 8.6 mg/dL (8.4-10.2); Creatinine 1 0.75 mg/dL (0.52-1.04); EST GLOMERULAR FILTRATION RATE 105.1 ML/MIN; Potassium 4.4 mmol/L (3.5-5.1); Total Protein 7.5 g/dL (6.3-8.2)
[2023-10-05 10:58] LABS: INFLUENZA A NEGATIVE (NEGATIVE); INFLUENZA B NEGATIVE (NEGATIVE); RESPIRATORY SYNCTIAL VIRUS NEGATIVE (NEGATIVE); SARS-CoV-2 Xpert Express NEGATIVE (NEGATIVE)
[2023-10-05 11:02] LABS: HCG SERUM TEST NEGATIVE (NEGATIVE)
[2023-10-05 11:23] LABS: Appearance Clear (Clear); Bacteria None Seen /HPF (None Seen); Bilirubin Negative (Negative); Blood Negative (Negative); Epithelial Cells Rare /HPF (None Seen); Glucose, Urine 100 mg/dL (Negative); Hyaline Casts NONE SEEN /LPF (0-2); Ketones Negative (Negative); Leukocyte Esterase Negative (Negative); Nitrite Negative (Negative); Ph 6.5 (4.6-8.0); Protein,Urine Dip 30 (Negative); RBC 0-2 /HPF (0-5); Specific Gravity 1.015 (1.005-1.030); Urobilinogen 0.2 mg/dL (0.2); WBC 0-2 /HPF (0-5)
[2023-10-05 11:24] LABS: ADD URINE CULTURE? NO (NO)
[2023-10-05 15:09] VITALS: BP 110/77; RESP 17
[2023-10-05 15:18] VITALS: O2SAT 99
[2023-10-05 15:27] VITALS: PULSE 90
--- NOTE | 2023-10-05 19:27 | XRAY ---
Indication: Palpitations. Short of breath. Comparison: July 06, 2021. Portable chest inflated and clear. Heart not enlarged. Bony thorax intact. No new/acute findings.
== END 2023-10-05 15:52 | disposition home or self-care (01) ==
LOC: ED 09:27
DX: R00.2 Palpitations (principal); I10 Essential (primary) hypertension; E10.9 Type 1 diabetes mellitus without complications; Z79.899 Other long term (current) drug therapy; Z72.0 Tobacco use
CPT/HCPCS: 0241U; 36000; 36415; 71045; 80053; 81001; 82947; 83605; 83880; 84443; 84484; 84703; 85025; 85379; 93005; 93041; 94760; 99284; A9270-GY

== ENCOUNTER 2023-11-10 13:25 | Observation (INO) | payer MEDICARE ==
--- NOTE | 2023-11-10 14:56 | ERPHSYRPT ---
- History of Present Illness Time Seen by Provider: 11/10/23 14:55 Source: patient Exam Limitations: no limitations Patient Subjective Stated Complaint: PT HERE FOR PAIN TO BODY AND STATES HER PSORIASIS IS WORSE, SHE HAS ONE MORE DAY OF ANTIBOITCS AND STEROIDS, SHE HAS NOT CALLED HER SPECIALIST Triage Nursing Assessment: PT ALERT, WALKED IN, SHE HAS PATCHY REDNESS TO BODY. SWELLING TO LOWER LEGS WHICH IS NORMAL FOR HER, RESP EASY, NO COUGH Physician History: The patient, with a known history of psoriasis, presents with a flare-up of their condition, which they attribute to recent stress following a family tragedy. They report that oral antibiotics have historically been ineffective in managing their condition. They were recently prescribed a 14-day course of prednisone and doxycycline, which initially seemed to improve their symptoms, including reducing swelling. However, approximately four days prior to this consultation, they noticed a recurrence of swelling, including in the facial area, which they believe is due to inflammation from their psoriasis. The patient has a history of allergies to several antibiotics, including vancomycin and Bactrim, but has previously tolerated doxycycline via IV. They express a desire for rapid relief from their current symptoms. The patient is under the care of a corporate events director at a separate facility. Timing/Duration: week(s) (2) Quality: painful Severity: severe Location: torso, hands, feet, extremities, generalized Possible Causes: other (stress) Modifying Factors: Improves With: topical steriods (no improvement) Associated Symptoms: change in skin texture, flushing, headache, No difficulty breathing, No edema, No fever Allergies/Adverse Reactions: cefpodoxime Allergy (Intermediate, Verified 11/12/23 06:09) red, itchy rash cephalexin [From Keflex] Allergy (Verified 11/12/23 06:09) sulfamethoxazole [From Bactrim] Allergy (Verified 11/12/23 06:09) trimethoprim [From Bactrim] Allergy (Verified 11/12/23 06:09) vancomycin Allergy (Verified 11/12/23 06:09) Hives Home Medications: Folic Acid 1 mg PO DAILY 09/02/14 [History] Ergocalciferol (Vitamin D2) [Vitamin D] 1 tab PO WEEKLY 12/26/16 [History] Sucralfate 1 gm [Carafate 1 GM] 1 g PO UD PRN 03/19/23 [History] Insulin Aspart [NovoLOG Insulin] 1 units SQ UD PRN 05/07/23 [History] Lisinopril 20 mg [Zestril 20 MG] 20 mg PO DAILY 11/10/23 [History] Insulin Glargine,Hum.rec.anlog [Toupatriciao Solostar] 32 units SQ QHS 11/11/23 [History] Levothyroxine Sodium 100 Mcg [Synthroid 100 Mcg] 200 mcg PO DAILY 11/11/23 [History] Lumateperone Tosylate [Caplyta] 21 mg PO DAILY 11/11/23 [History] clonazePAM 0.5 mg PO DAILY PRN PRN 11/11/23 [History] Hx Tetanus, Diphtheria Vaccination/Date Given: Yes Hx Influenza Vaccination/Date Given: No Hx Pneumococcal Vaccination/Date Given: No Immunizations Up to Date: Yes Travel Risk - International Travel Have you traveled outside of the country in past 3 weeks: No - Emerging Infectious Disease Are you exhibiting symptoms associated with any current EIDs: No - Review of Systems All Other Systems: Reviewed and Negative - Past Medical History Pertinent Past Medical History: Yes Neurological History: No Pertinent History ENT History: No Pertinent History Cardiac History: No Pertinent History, Hypertension Respiratory History: Asthma, Sleep Apnea Endocrine Medical History: Diabetes Type I, Hypothyroidism Musculoskeletal History: Arthritis, Rheumatoid Arthritis GI Medical History: No Pertinent History, Hemorrhoids History: No Pertinent History Psycho-Social History: Anxiety, Depression Female Reproductive Disorders: No Pertinent History Other Medical History: PSORIASIS, OBESITY - Past Surgical History Past Surgical History: Yes Neuro Surgical History: No Pertinent History Cardiac: No Pertinent History Respiratory: No Pertinent History Gastrointestinal: No Pertinent History Genitourinary: No Pertinent History Musculoskeletal: No Pertinent History Female Surgical History: No Pertinent History Other Surgical History: 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 Significant Family History: diabetes - Female History Hx Last Menstrual Period: OCTOBER Hx Now: No - Social History Smoking Status: Current every day smoker How long have you smoked: 22 yrs Exposure to second hand smoke: Yes Alcohol Use: None Drug Use: none Patient Lives Alone: No - Social Determinants of Health Will the patient participate in the screening: Yes Do you worry about a steady place to live?: No Do you have any problems with any of the following?: No known problems In the past 12 months,have you had to go without utilities?: No Transportation Issues: No Has anyone in your support network made you feel unsafe?: No Have you or anyone in your house had to go without enough: No - Nursing Vital Signs Nursing Vital Signs: Initial Vital Signs Temperature 97.4 F 11/10/23 14:40 Pulse Rate 101 H 11/10/23 14:40 Respiratory Rate 18 11/10/23 14:40 Blood Pressure 137/63 11/10/23 14:40 O2 Sat by Pulse Oximetry 97 11/10/23 14:40 Pain Scale Pain Intensity 4 - Physical Exam General Appearance: no apparent distress, obese Cardiovascular Exam: regular rate/rhythm, edema Extremity Exam: swelling, tenderness Skin Exam: other (diffuse psoriatic plaques with surrounding erythema, no active drainage, TTP, warm to touch) SpO2 Interpretation: normal SpO2: 98 O2 Delivery: Room Air - Course Nursing assessment & vital signs reviewed: Yes Ordered Tests: Medication Summary Discontinued Medications Generic Name Dose Route Start Last Admin Trade Name Freq PRN Reason Stop Dose Admin Acetaminophen 975 mg 11/10/23 15:32 11/10/23 15:51 Acetaminophen 325 Mg Tablet PO 11/10/23 15:33 975 mg STAT STA Administration Acetaminophen Confirm 11/10/23 15:37 Acetaminophen 325 Mg Tablet Administered 11/10/23 15:38 Dose 975 mg .ROUTE .STK-MED ONE Acetaminophen 325 mg 11/10/23 20:57 Acetaminophen 325 Mg Tablet PO 12/10/23 20:56 Q4H PRN PRN PAIN, FEVER, HEADACHE Clonazepam 0.5 mg 11/11/23 10:06 Clonazepam 0.5 Mg Tablet PO 12/11/23 10:05 DAILY PRN PRN ANXIETY Doxycycline Hyclate Confirm 11/10/23 15:38 Doxycycline Hyclate 100 Mg/Vial Injection Administered 11/10/23 15:39 Dose 100 mg IV .STK-MED ONE Enoxaparin Sodium 40 mg 11/11/23 10:00 11/11/23 10:34 Enoxaparin Sodium 40 Mg/0.4 Ml Syringe SQ 12/11/23 09:59 Not Given DAILY [facility] Ergocalciferol 50,000 unit 11/14/23 10:00 Ergocalciferol (Vitamin D2) 50,000 Unit Capsule PO 12/14/23 09:59 WEEKLY KAILA Folic Acid 1 mg 11/11/23 10:00 11/11/23 10:26 Folic Acid 1 Mg Tablet PO 12/11/23 09:59 1 mg DAILY KAILA Administration Doxycycline Hyclate 100 mg/ 100 mls @ 100 mls/hr 11/10/23 22:00 11/11/23 10:26 Dextrose IV 12/10/23 21:59 100 mls/hr Q12HT KAILA Administration Sodium Chloride 1,000 mls @ 999 mls/hr 11/10/23 15:34 11/10/23 17:03 Sodium Chloride 0.9% 1000 Ml IV 11/10/23 16:34 Infused .Q1H1M STA Infusion Dextrose Confirm 11/10/23 15:39 D5w 100ml Mini Bag 100 Ml Administered 11/10/23 15:40 Dose 100 mls @ ud IV .STK-MED ONE Dextrose Confirm 11/10/23 15:46 Dextrose 5%/Water Iv Soln. 100ml Plus Bag Administered 11/10/23 15:47 Dose 100 mls @ ud IV .STK-MED ONE Sodium Chloride Confirm 11/10/23 15:55 Sodium Chloride 0.9% 1000 Ml Administered 11/10/23 15:56 Dose 1,000 mls @ ud .ROUTE .STK-MED ONE Doxycycline Hyclate 100 mg/ 100 mls @ 100 mls/hr 11/11/23 18:00 11/11/23 17:21 Dextrose IV 12/11/23 17:59 100 mls/hr Q12H KAILA Administration Insulin Glargine 15 unit 11/11/23 10:00 Insulin Glargine 1 Unit SQ 12/11/23 09:59 DAILY KAILA Insulin Glargine 15 unit 11/11/23 22:00 Insulin Glargine 1 Unit SQ 12/11/23 21:59 QHS KAILA Insulin Human Lispro 0 unit 11/10/23 20:57 11/11/23 17:22 Insulin Lispro 1 Unit SQ 12/10/23 20:56 4 unit UD PRN Administration HYPERGLYCEMIA Insulin Human Lispro 5 unit 11/11/23 08:00 11/11/23 17:22 Insulin Lispro 1 Unit SQ 12/11/23 07:59 5 unit TIDWM KAILA Administration Lactobacillus Acidophilus 1 tab 11/11/23 10:00 11/11/23 10:26 Lactobacillus Acidophilus 1 Tab Tablet PO 12/11/23 09:59 1 tab DAILY KAILA Administration Levothyroxine Sodium 224 mcg 11/11/23 10:00 Levothyroxine Sodium 112 Mcg Tablet PO 12/11/23 09:59 DAILY KAILA Levothyroxine Sodium 50 mcg 11/11/23 10:00 Levothyroxine Sodium 50 Mcg Tablet PO 12/11/23 09:59 DAILY KAILA Levothyroxine Sodium 200 mcg 11/11/23 10:00 11/11/23 10:27 Levothyroxine Sodium 100 Mcg Tablet PO 12/11/23 09:59 200 mcg DAILY@0700 KAILA Administration Lisinopril 20 mg 11/11/23 10:00 11/11/23 10:37 Lisinopril 20 Mg Tablet PO 12/11/23 09:59 20 mg DAILY KAILA Administration Miscellaneous Information 1 each 11/11/23 07:45 Medication Intervention 1 Each Each 12/11/23 07:44 .RN TO CHECK KAILA Miscellaneous Information 1 each 11/11/23 10:30 Medication Intervention 1 Each Each 12/11/23 10:29 .RN TO CHECK KAILA Non-Formulary Medication 100 mg 11/10/23 21:00 Guselkumab [Tremfya] SQ 12/10/23 20:59 UD [facility] Ondansetron HCl 4 mg 11/10/23 20:57 Ondansetron Hcl 4 Mg/2 Ml Vial IV 12/10/23 20:56 Q6H PRN PRN NAUSEA/VOMITING Prednisone 10 mg 11/11/23 10:00 11/11/23 10:27 Prednisone 10 Mg Tablet PO 12/11/23 09:59 10 mg DAILY KAILA Administration Sucralfate 1 g 11/11/23 07:30 11/11/23 09:33 Sucralfate 1 G Tablet PO 12/11/23 07:29 Not Given ACHS KAILA Sucralfate 1 g 11/11/23 09:47 Sucralfate 1 G Tablet PO 12/11/23 07:29 ACHS PRN gerd Lab/Rad Data: Laboratory Result Diagrams 11/10/23 15:28 11/10/23 15:28 Laboratory Results 11/10/23 11/10/23 11/10/23 Range/Units 17:33 15:28 15:28 WBC (3.98-10.04) x10^3/uL RBC (3.93-5.22) x10^6/uL Hgb (11.2-15.7) g/dL Hct (34.1-44.9) % MCV (79.4-94.8) fL MCH (25.6-32.2) pg MCHC (32.2-35.5) g/dL RDW (11.7-14.4) % Plt Count (182-369) x10^3/uL MPV (9.4-12.3) fL Gran % (34.0-71.1) % Immature Gran % (Auto) (0.001-0.429) % Nucleat RBC Rel Count (0.00-0.2) % Eos # (Auto) (0.04-0.36) x10^3/uL Immature Gran # (Auto) (0.001-0.031) x10^3u/L Absolute Lymphs (auto) (1.18-3.74) x10^3/uL Absolute Monos (auto) (0.24-0.86) x10^3/uL Absolute Nucleated RBC (0.00-0.012) x10^3u/L Lymphocytes % (19.3-51.7) % Monocytes % (4.7-12.5) % Eosinophils % (0.7-5.8) % Basophils % (0.1-1.2) % Absolute Granulocytes (1.56-6.13) x10^3/uL Basophils # (0.01-0.08) x10^3/uL ESR 52 H (0-20) mm/hr Sodium 134 L (135-145) mmol/L Potassium 4.2 (3.5-5.1) mmol/L Chloride 95 L (98-107) mmol/L Carbon Dioxide 30 (22-30) mmol/L Anion Gap 12.3 (5-15) MEQ/L BUN 11 (7-17) mg/dL Creatinine 0.58 (0.52-1.04) mg/dL Estimated GFR 118.7 ML/MIN Glucose 191 H (74-106) mg/dL Lactic Acid 1.6 (0.4-2.0) Calcium 9.5 (8.4-10.2) mg/dL Total Bilirubin 0.60 (0.2-1.3) mg/dL AST 28 (14-36) U/L ALT 34 (0-35) U/L Alkaline Phosphatase 83 (38-126) U/L Serum Total Protein 7.5 (6.3-8.2) g/dL Albumin 3.9 (3.5-5.0) g/dL Urine Color (Yellow) Urine Appearance (Clear) Urine pH (4.6-8.0) Ur Specific [place] (1.005-1.030) Urine Protein (Negative) Urine Glucose (UA) (Negative) mg/dL Urine Ketones (Negative) Urine Blood (Negative) Urine Nitrite (Negative) Urine Bilirubin (Negative) Urine Urobilinogen (0.2) mg/dL Ur Leukocyte Esterase (Negative) U Hyaline Cast (Auto) (0-2) /LPF Urine Microscopic RBC (0-5) /HPF Urine Microscopic WBC (0-5) /HPF Ur Epithelial Cells (None Seen) /HPF Urine Bacteria (None Seen) /HPF Urine Culture Reflexed (NO) 11/10/23 11/10/23 11/10/23 Range/Units 15:28 15:28 15:22 WBC 13.2 H (3.98-10.04) x10^3/uL RBC 4.53 (3.93-5.22) x10^6/uL Hgb 14.3 (11.2-15.7) g/dL Hct 44.9 (34.1-44.9) % MCV 99.1 H (79.4-94.8) fL MCH 31.6 (25.6-32.2) pg MCHC 31.8 L (32.2-35.5) g/dL RDW 13.4 (11.7-14.4) % Plt Count 243 (182-369) x10^3/uL MPV 10.0 (9.4-12.3) fL Gran % 76.2 H (34.0-71.1) % Immature Gran % (Auto) 2.1 H (0.001-0.429) % Nucleat RBC Rel Count 0.0 (0.00-0.2) % Eos # (Auto) 0.26 (0.04-0.36) x10^3/uL Immature Gran # (Auto) 0.28 H (0.001-0.031) x10^3u/L Absolute Lymphs (auto) 1.67 (1.18-3.74) x10^3/uL Absolute Monos (auto) 0.82 (0.24-0.86) x10^3/uL Absolute Nucleated RBC 0.00 (0.00-0.012) x10^3u/L Lymphocytes % 12.7 L (19.3-51.7) % Monocytes % 6.2 (4.7-12.5) % Eosinophils % 2.0 (0.7-5.8) % Basophils % 0.8 (0.1-1.2) % Absolute Granulocytes 10.02 H (1.56-6.13) x10^3/uL Basophils # 0.11 H (0.01-0.08) x10^3/uL ESR (0-20) mm/hr Sodium (135-145) mmol/L Potassium (3.5-5.1) mmol/L Chloride (98-107) mmol/L Carbon Dioxide (22-30) mmol/L Anion Gap (5-15) MEQ/L BUN (7-17) mg/dL Creatinine (0.52-1.04) mg/dL Estimated GFR ML/MIN Glucose (74-106) mg/dL Lactic Acid 2.3 H (0.4-2.0) Calcium (8.4-10.2) mg/dL Total Bilirubin (0.2-1.3) mg/dL AST (14-36) U/L ALT (0-35) U/L Alkaline Phosphatase (38-126) U/L Serum Total Protein (6.3-8.2) g/dL Albumin (3.5-5.0) g/dL Urine Color Yellow (Yellow) Urine Appearance Clear (Clear) Urine pH 6.5 (4.6-8.0) Ur Specific [place] 1.020 (1.005-1.030) Urine Protein Trace A (Negative) Urine Glucose (UA) 500 A (Negative) mg/dL Urine Ketones Trace A (Negative) Urine Blood Negative (Negative) Urine Nitrite Negative (Negative) Urine Bilirubin Negative (Negative) Urine Urobilinogen 1.0 A (0.2) mg/dL Ur Leukocyte Esterase Negative (Negative) U Hyaline Cast (Auto) NONE SEEN (0-2) /LPF Urine Microscopic RBC 0-2 (0-5) /HPF Urine Microscopic WBC 0-2 (0-5) /HPF Ur Epithelial Cells Few (None Seen) /HPF Urine Bacteria Few A (None Seen) /HPF Urine Culture Reflexed NO (NO) - Progress Progress: unchanged Progress Note: Patient had elevated WBC and ESR. Blood cx pending. Started IV Doxycyline. She has multiple abx allergies and reports IV Doxy has cleared her flares in the past. She has already completed a steroid taper so steroids deferred at this time. Will admit for IV abx due to poor bioavailability of PO abx. Dr. Cerrato accepts for admission. Discussed with Dr.: Other (Blossom) Will see patient in: hospital (observation) Counseled pt/family regarding: diagnosis Medical Desision Making - Discussion of managment Care discussed with:: hospitalist Reviewed:: Test results Agreed on:: place in obs - Diagnostic Testing Diagnostic test were ordered, analyzed, and reviewed by me: Yes Radiological Interpretation: Interpreted by me - Risk of complications The pt has a mod risk of morbidity or mortality based on: Need for prescription drug management The pt has a high risk of morbidity or mortality based on: Decision regarding hospitilization or escalation of hosp level of care - Departure Departure Disposition: Observation Clinical Impression: Psoriasiform eruption, Cellulitis, Morbid obesity, Psoriatic arthritis, Psoriasis Condition: Stable Critical Care Time: No
[2023-11-10] MEDS ORDERED: TYLENOL 325 MG ONE (15:37)
[2023-11-10] MEDS ORDERED: VIBRAMYCIN 100 MG IV ONE (15:38)
[2023-11-10] MEDS ORDERED: D5w 100ML Mini Bag 100 ML 0 ML IV ONE (15:39)
[2023-11-10 15:42] LABS: Appearance Clear (Clear); Bacteria Few /HPF (None Seen); Bilirubin Negative (Negative); Blood Negative (Negative); Epithelial Cells Few /HPF (None Seen); Glucose, Urine 500 mg/dL (Negative); Hyaline Casts NONE SEEN /LPF (0-2); Ketones Trace (Negative); Leukocyte Esterase Negative (Negative); Nitrite Negative (Negative); Ph 6.5 (4.6-8.0); Protein,Urine Dip Trace (Negative); RBC 0-2 /HPF (0-5); WBC 0-2 /HPF (0-5)
[2023-11-10] MEDS ORDERED: Dextrose 5%/Water IV Soln. 100ML PLUS BAG 100 ML IV ONE (15:46)
[2023-11-10] MEDS: VIBRAMYCIN 100 MG*** 100 MG in Dextrose 5%/Water IV Soln. 100ML PLUS BAG 100 ML IV SCH (15:47)
[2023-11-10] MEDS: TYLENOL 325 MG PO STA (15:51)
[2023-11-10] MEDS ORDERED: Sodium Chloride 0.9% 1000 ML 1,000 ML ONE (15:55)
[2023-11-10 15:58] LABS: ADD URINE CULTURE? NO (NO)
[2023-11-10 15:59] LABS: Absolute Neutrophil Ct (ANC) 10.02 x10^3/uL (1.56-6.13); BASOPHIL % 0.8 % (0.1-1.2); Basophil (Absolute #) 0.11 x10^3/uL (0.01-0.08); Eosinophil (Absolute #) 0.26 x10^3/uL (0.04-0.36); Hematocrit 44.9 % (34.1-44.9); Hemoglobin 14.3 g/dL (11.2-15.7); IMMATURE GRAN # 0.28 x10^3u/L (0.001-0.031); IMMATURE GRAN % 2.1 % (0.001-0.429); Lymphocyte (Absolute #) 1.67 x10^3/uL (1.18-3.74); Lymphocytes % 12.7 % (19.3-51.7); Mean Cell Volume 99.1 fL (79.4-94.8); Mean Corpuscular Hemoglobin 31.6 pg (25.6-32.2); Mean Corpuscular Hgb Concent. 31.8 g/dL (32.2-35.5); Monocyte (Absolute #) 0.82 x10^3/uL (0.24-0.86); Monocytes % 6.2 % (4.7-12.5); Neutrophil % 76.2 % (34.0-71.1); Platelet Count 243 x10^3/uL (182-369); Red Blood Count 4.53 x10^6/uL (3.93-5.22); Red Cell Distribution Width 13.4 % (11.7-14.4); White Blood Count 13.2 x10^3/uL (3.98-10.04)
[2023-11-10] MEDS: Sodium Chloride 0.9% 1000 ML 1,000 ML IV STA (15:59)
[2023-11-10 16:07] LABS: ALBUMIN 3.9 g/dL (3.5-5.0); ANION GAP 12.3 MEQ/L (5-15); BILIRUBIN,TOTAL 0.6 mg/dL (0.2-1.3); Calcium 9.5 mg/dL (8.4-10.2); Creatinine 1 0.58 mg/dL (0.52-1.04); EST GLOMERULAR FILTRATION RATE 118.7 ML/MIN; Potassium 4.2 mmol/L (3.5-5.1); Total Protein 7.5 g/dL (6.3-8.2)
[2023-11-10] MEDS ORDERED: TYLENOL 325 MG PO PRN (20:57)
[2023-11-10] MEDS ORDERED: Zofran 4 MG/2 ML VIAL IV PRN (20:57)
[2023-11-10] MEDS ORDERED: GUSELKUMAB 100 MG/ML SQ SCH (21:00)
[2023-11-10] MEDS ORDERED: AUTO INJCT SQ SCH (21:00)
--- NOTE | 2023-11-10 21:19 | PCM.HP ---
History of Present Illness - Chief Complaint Chief Complaint: cellulitis Date: 11/10/23 History of Present Illness: is a 38 year old female with a history of psoriasis and DM, who now presents with worsening rash involving her psoriasis plaques. 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 About 2 weeks ago, she noticed recurrent diffuse rash involving her plaques on her limbs, torso, and groin area. She was placed on oral doxycycline and a prednisone taper (40 mg daily taper to 10 mg daily, which she was currently on). The rash initially improved but then progressively became worse. She has had pain in the areas of involvement. In the past, when treated with doxycycline, she has required IV doxycycline to improve her rash. - Review of Systems Constitutional: No Symptoms Eyes: No Symptoms Ears, Nose, & Throat: No Symptoms Respiratory: No Symptoms Cardiac: No Symptoms Abdominal/Gastrointestinal: No Symptoms Genitourinary Symptoms: No Symptoms Musculoskeletal: No Symptoms Skin: Rash, Skin Lesions Neurological: No Symptoms Psychological: No Symptoms Endocrine: No Symptoms Hematologic/Lymphatic: No Symptoms Immunological/Allergic: No Symptoms All Other Systems: Reviewed and Negative Medications & Allergies Home Medications: Home Medication List RX: Levothyroxine Sodium [Synthroid] 274 mcg PO DAILY 09/01/11 [History Confirmed 11/10/23] RX: Folic Acid 1 mg PO DAILY 09/02/14 [History Confirmed 11/10/23] Ergocalciferol (Vitamin D2) [Vitamin D] 1 tab PO WEEKLY 12/26/16 [History Confirmed 11/10/23] Semaglutide [Rybelsus] 14 mg PO DAILY 06/27/22 [History Confirmed 11/10/23] Guselkumab [Tremfya] 100 mg SQ UD 03/19/23 [History Confirmed 11/10/23] RX: Sucralfate 1 gm [Carafate 1 GM] 1 g PO UD 03/19/23 [History Confirmed 11/10/23] Insulin Aspart [NovoLOG Insulin] 5 units SQ TIDWM MDD 10 units with supper meal 05/07/23 [History Confirmed 11/10/23] Insulin Detemir [Levemir Flexpen] 15 unit SQ DAILY 05/07/23 [History Confirmed 11/10/23] Doxycycline Hyclate 100 mg [Vibramycin 100 MG] 100 mg PO BID 11/10/23 [History Confirmed 11/10/23] Lisinopril 20 mg [Zestril 20 MG] 20 mg PO DAILY 11/10/23 [History Confirmed 11/10/23] RX: Prednisone 10 mg [Deltasone 10 mg] 1 ea DAILY 11/10/23 [History Confirmed 11/10/23] Allergies/Adverse Reactions: Allergies Allergy/AdvReac Type Severity Reaction Status Date / Time cefpodoxime Allergy Intermediate red, itchy Verified 11/10/23 14:34 rash cephalexin [From Keflex] Allergy Verified 11/10/23 14:34 sulfamethoxazole Allergy Verified 11/10/23 14:34 [From Bactrim] trimethoprim [From Bactrim] Allergy Verified 11/10/23 14:34 vancomycin Allergy Hives Verified 11/10/23 14:34 - Past Medical History Past Medical History: Yes Neurological History: No Pertinent History ENT History: No Pertinent History Cardiac History: No Pertinent History, Hypertension Respiratory History: Asthma, Sleep Apnea Endocrine Medical History: Diabetes Type II, Hypothyroidism Musculoskelatal History: Arthritis, Rheumatoid Arthritis GI Medical History: No Pertinent History, Hemorrhoids History: No Pertinent History Pyscho-Social History: Anxiety, Depression Reproductive Disorders: No Pertinent History Comment: PSORIASIS, OBESITY - Female History Hx Last Menstrual Period: OCTOBER Are you now?: No - Past Surgical History Past Surgical History: Yes Neuro Surgical History: No Pertinent History Cardiac History: No Pertinent History Respiratory Surgery: No Pertinent History GI Surgical History: No Pertinent History Genitourinary Surgical Hx: No Pertinent History Musculskeletal Surgical Hx: No Pertinent History Female Surgical History: No Pertinent History Other Surgical History: 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 Significant Family History: diabetes - Social History Smoking Status: Current every day smoker How long have you smoked: 22 yrs Exposure to second hand smoke: Yes Alcohol: Rarely Drug Use: none - Social Determinants of Health Will the patient participate in the screening: Yes Do you worry about a steady place to live?: No Do you have any problems with any of the following?: No known problems In the past 12 months,have you had to go without utilities?: No Have you or anyone in your house had to go without enough: No Transportation Issues: No Has anyone in your support network made you feel unsafe?: No Does the patient want assistance with any of the above?: No - Physical Exam Vital Signs: Vital Signs - 24 hr Temp Pulse Resp BP Pulse Ox 11/10/23 20:23 97.0 F 87 18 123/58 91 L 11/10/23 18:27 89 18 112/56 98 11/10/23 17:00 80 18 98 11/10/23 15:23 98 11/10/23 14:55 98 11/10/23 14:49 98 11/10/23 14:40 97.4 F 101 H 18 137/63 97 General Appearance: no apparent distress, alert Neurologic Exam: alert, oriented x 3, cooperative, 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, normal mood/affect, nml cerebellar function Eye Exam: PERRL/EOMI, eyes nml inspection Ears, Nose, Throat Exam: normal ENT inspection Neck Exam: normal inspection, non-tender, supple, full range of motion Respiratory Exam: normal breath sounds, lungs clear Cardiovascular Exam: regular rate/rhythm, normal heart sounds Gastrointestinal/Abdomen Exam: soft, normal bowel sounds Back Exam: normal range of motion Extremity Exam: normal inspection, normal range of motion Skin Exam: rash (diffuse psoriatic plaques noted on arms, legs, and torso with erythema) Results - Labs Lab/Micro Results: Lab Results-Last 24 Hours 11/10/23 11/10/23 11/10/23 Range/Units 15:22 15:28 15:28 WBC 13.2 H (3.98-10.04) x10^3/uL RBC 4.53 (3.93-5.22) x10^6/uL Hgb 14.3 (11.2-15.7) g/dL Hct 44.9 (34.1-44.9) % MCV 99.1 H (79.4-94.8) fL MCH 31.6 (25.6-32.2) pg MCHC 31.8 L (32.2-35.5) g/dL RDW 13.4 (11.7-14.4) % Plt Count 243 (182-369) x10^3/uL MPV 10.0 (9.4-12.3) fL Gran % 76.2 H (34.0-71.1) % Immature Gran % (Auto) 2.1 H (0.001-0.429) % Nucleat RBC Rel Count 0.0 (0.00-0.2) % Eos # (Auto) 0.26 (0.04-0.36) x10^3/uL Immature Gran # (Auto) 0.28 H (0.001-0.031) x10^3u/L Absolute Lymphs (auto) 1.67 (1.18-3.74) x10^3/uL Absolute Monos (auto) 0.82 (0.24-0.86) x10^3/uL Absolute Nucleated RBC 0.00 (0.00-0.012) x10^3u/L Lymphocytes % 12.7 L (19.3-51.7) % Monocytes % 6.2 (4.7-12.5) % Eosinophils % 2.0 (0.7-5.8) % Basophils % 0.8 (0.1-1.2) % Absolute Granulocytes 10.02 H (1.56-6.13) x10^3/uL Basophils # 0.11 H (0.01-0.08) x10^3/uL ESR (0-20) mm/hr Sodium (135-145) mmol/L Potassium (3.5-5.1) mmol/L Chloride (98-107) mmol/L Carbon Dioxide (22-30) mmol/L Anion Gap (5-15) MEQ/L BUN (7-17) mg/dL Creatinine (0.52-1.04) mg/dL Estimated GFR ML/MIN Glucose (74-106) mg/dL Lactic Acid 2.3 H (0.4-2.0) Calcium (8.4-10.2) mg/dL Total Bilirubin (0.2-1.3) mg/dL AST (14-36) U/L ALT (0-35) U/L Alkaline Phosphatase (38-126) U/L Serum Total Protein (6.3-8.2) g/dL Albumin (3.5-5.0) g/dL Urine Color Yellow (Yellow) Urine Appearance Clear (Clear) Urine pH 6.5 (4.6-8.0) Ur Specific [place] 1.020 (1.005-1.030) Urine Protein Trace A (Negative) Urine Glucose (UA) 500 A (Negative) mg/dL Urine Ketones Trace A (Negative) Urine Blood Negative (Negative) Urine Nitrite Negative (Negative) Urine Bilirubin Negative (Negative) Urine Urobilinogen 1.0 A (0.2) mg/dL Ur Leukocyte Esterase Negative (Negative) U Hyaline Cast (Auto) NONE SEEN (0-2) /LPF Urine Microscopic RBC 0-2 (0-5) /HPF Urine Microscopic WBC 0-2 (0-5) /HPF Ur Epithelial Cells Few (None Seen) /HPF Urine Bacteria Few A (None Seen) /HPF Urine Culture Reflexed NO (NO) 11/10/23 11/10/23 11/10/23 Range/Units 15:28 15:28 17:33 WBC (3.98-10.04) x10^3/uL RBC (3.93-5.22) x10^6/uL Hgb (11.2-15.7) g/dL Hct (34.1-44.9) % MCV (79.4-94.8) fL MCH (25.6-32.2) pg MCHC (32.2-35.5) g/dL RDW (11.7-14.4) % Plt Count (182-369) x10^3/uL MPV (9.4-12.3) fL Gran % (34.0-71.1) % Immature Gran % (Auto) (0.001-0.429) % Nucleat RBC Rel Count (0.00-0.2) % Eos # (Auto) (0.04-0.36) x10^3/uL Immature Gran # (Auto) (0.001-0.031) x10^3u/L Absolute Lymphs (auto) (1.18-3.74) x10^3/uL Absolute Monos (auto) (0.24-0.86) x10^3/uL Absolute Nucleated RBC (0.00-0.012) x10^3u/L Lymphocytes % (19.3-51.7) % Monocytes % (4.7-12.5) % Eosinophils % (0.7-5.8) % Basophils % (0.1-1.2) % Absolute Granulocytes (1.56-6.13) x10^3/uL Basophils # (0.01-0.08) x10^3/uL ESR 52 H (0-20) mm/hr Sodium 134 L (135-145) mmol/L Potassium 4.2 (3.5-5.1) mmol/L Chloride 95 L (98-107) mmol/L Carbon Dioxide 30 (22-30) mmol/L Anion Gap 12.3 (5-15) MEQ/L BUN 11 (7-17) mg/dL Creatinine 0.58 (0.52-1.04) mg/dL Estimated GFR 118.7 ML/MIN Glucose 191 H (74-106) mg/dL Lactic Acid 1.6 (0.4-2.0) Calcium 9.5 (8.4-10.2) mg/dL Total Bilirubin 0.60 (0.2-1.3) mg/dL AST 28 (14-36) U/L ALT 34 (0-35) U/L Alkaline Phosphatase 83 (38-126) U/L Serum Total Protein 7.5 (6.3-8.2) g/dL Albumin 3.9 (3.5-5.0) g/dL Urine Color (Yellow) Urine Appearance (Clear) Urine pH (4.6-8.0) Ur Specific [place] (1.005-1.030) Urine Protein (Negative) Urine Glucose (UA) (Negative) mg/dL Urine Ketones (Negative) Urine Blood (Negative) Urine Nitrite (Negative) Urine Bilirubin (Negative) Urine Urobilinogen (0.2) mg/dL Ur Leukocyte Esterase (Negative) U Hyaline Cast (Auto) (0-2) /LPF Urine Microscopic RBC (0-5) /HPF Urine Microscopic WBC (0-5) /HPF Ur Epithelial Cells (None Seen) /HPF Urine Bacteria (None Seen) /HPF Urine Culture Reflexed (NO) Microbiology 11/10/23 15:46 Blood Culture Gram Stain - Final Blood Not Reportable - Other Procedures and Tests Respiratory Therapy 11/10/23 20:34 Smoking Cessation Education ONCE Assessment/Plan (1) Cellulitis Current Visit: Yes Status: Acute Assessment & Plan: IV doxycycline. Monitor clinical course. Allergy profile is limiting. May need to have a PICC line with outpatient IV doxycycline course. Also may benefit from ID referral. Code(s): L03.90 - CELLULITIS, UNSPECIFIED (2) Leukocytosis Current Visit: No Status: Acute Assessment & Plan: Likely steroid effect and due to cellulitis. Monitor and trend. Code(s): D72.829 - ELEVATED WHITE BLOOD CELL COUNT, UNSPECIFIED (3) Diabetes Current Visit: No Status: Acute Assessment & Plan: Follow sugars on ISS Code(s): E11.9 - TYPE 2 DIABETES MELLITUS WITHOUT COMPLICATIONS (4) Psoriasis Current Visit: No Status: Acute Assessment & Plan: Patient has been on a steroid taper. Follows with dermatology but no longer follows with rheumatology. Code(s): L40.9 - PSORIASIS, UNSPECIFIED Telemedicine Encounter - Telemedicine Encounter Telemedicine Encounter: The entirety of this visit was performed using real-time audio and video connection between my location and the patients location with the assistance of a surrogate at the patients location. Written or verbal consent was obtained from the patient/guardian to perform this visit using synchronous telemedicine technology. Patient identification verification was completed. Any patient questions regarding the telemedicine interaction were answered.
[2023-11-11 05:33] LABS: Absolute Neutrophil Ct (ANC) 8.49 x10^3/uL (1.56-6.13); Basophil (Absolute #) 0.12 x10^3/uL (0.01-0.08); Eosinophil % 2.6 % (0.7-5.8); Eosinophil (Absolute #) 0.32 x10^3/uL (0.04-0.36); Hematocrit 41.8 % (34.1-44.9); IMMATURE GRAN # 0.24 x10^3u/L (0.001-0.031); Lymphocyte (Absolute #) 1.91 x10^3/uL (1.18-3.74); Lymphocytes % 15.8 % (19.3-51.7); Mean Cell Volume 99.8 fL (79.4-94.8); Mean Corpuscular Hgb Concent. 31.1 g/dL (32.2-35.5); Mean Platelet Volume 9.8 fL (9.4-12.3); Monocytes % 8.3 % (4.7-12.5); Neutrophil % 70.3 % (34.0-71.1); Platelet Count 217 x10^3/uL (182-369); Red Blood Count 4.19 x10^6/uL (3.93-5.22); Red Cell Distribution Width 13.6 % (11.7-14.4); White Blood Count 12.1 x10^3/uL (3.98-10.04)
[2023-11-11 05:50] LABS: ANION GAP 9.1 MEQ/L (5-15); Calcium 8.7 mg/dL (8.4-10.2); Creatinine 1 0.6 mg/dL (0.52-1.04); EST GLOMERULAR FILTRATION RATE 117.8 ML/MIN
[2023-11-11] MEDS ORDERED: MEDICATION INTERVENTION MC SCH ×2 (07:45→10:30)
[2023-11-11] MEDS ORDERED: NON-FORMULARY ITEM (Insulin Aspart** [Novolog Insulin] 100 UNITS/ML Vial) SQ SCH (08:00)
[2023-11-11] MEDS: Carafate 1 GM PO SCH (09:33)
[2023-11-11] MEDS ORDERED: Carafate 1 GM PO PRN (09:47)
[2023-11-11] MEDS ORDERED: SYNTHROID 112 MCG PO SCH (10:00)
[2023-11-11] MEDS ORDERED: NON-FORMULARY ITEM (Insulin Detemir [Levemir Flexpen] 100 UNIT/ML Insuln.Pen) SQ SCH (10:00)
[2023-11-11] MEDS ORDERED: Lantus Insulin SQ SCH ×2 (10:00→22:00)
[2023-11-11] MEDS ORDERED: SEMAGLUTIDE 3 MG PO SCH (10:00)
[2023-11-11] MEDS ORDERED: LEVOTHYROXINE PO SCH (10:00)
[2023-11-11] MEDS ORDERED: SYNTHROID 50 MCG PO SCH (10:00)
[2023-11-11] MEDS ORDERED: SYNTHROID 75 MCG PO SCH (10:00)
[2023-11-11] MEDS ORDERED: clonazePAM PO PRN (10:06)
[2023-11-11] MEDS: FOLATE 1 MG PO SCH (10:26)
[2023-11-11] MEDS: Acidophilus TABLET PO SCH (10:26)
[2023-11-11] MEDS: DELTASONE 10 MG PO SCH (10:27)
[2023-11-11] MEDS: SYNTHROID 100 MCG PO SCH (10:27)
[2023-11-11] MEDS: ENOXAPARIN SODIUM SQ SCH (10:34)
[2023-11-11] MEDS: HUMALOG SQ SCH (10:35)
[2023-11-11] MEDS: Zestril 20 MG PO SCH (10:37)
--- NOTE | 2023-11-11 11:10 | PCM.DS ---
Discharge Summary Date of Admission: 11/10/23 20:07 Date of Discharge: 11/11/23 Admitting Physician: RUTH LONDON MD Consults: Consults on Case 11/10/23 21:28 Case Management [facility] Needs Assessment ROUTINE Primary Care Provider: CASSIE GUNN Allergies Allergies cefpodoxime Allergy (Intermediate, Verified 11/10/23 14:34) red, itchy rash cephalexin [From Keflex] Allergy (Verified 11/10/23 14:34) sulfamethoxazole [From Bactrim] Allergy (Verified 11/10/23 14:34) trimethoprim [From Bactrim] Allergy (Verified 11/10/23 14:34) vancomycin Allergy (Verified 11/10/23 14:34) [facility] Summary - Hospital Course Hospital Course: 11/11/23 is a 38 year old female with a history of psoriasis, morbid obesity, hypothyroidism, HTN, asthma, sleep apnea, anxiety and depression, RA DM and daily smoker. She presented on 11/10/23 with worsening rash involving her psoriasis plaques. She does not actively follow with a toll service observer. About 2 weeks ago, she noticed recurrent diffuse rash involving her plaques on her limbs, torso, and groin area. She does follow a award machine operator and he is usually able to keep it well controlled. However she has had an increased level of st ress and she feels this caused the severe flare she is having. She does not want to speak with a mental health provider and states she follows with [facility] for her mental health needs. She was placed on oral doxycycline and a prednisone taper (40 mg daily taper to 10 mg daily, which she was currently on). The rash initially improved but then progressively became worse. She has had pain in the areas of involvement. In the past, when treated with doxycycline, she has required IV doxycycline to improve her rash. Today she wants to leave and f/u OP with IV antibiotics. She states she was given this option in the ER. Today she wants to go home and place petroleum jelly on her body, take a shower and rest in her own bed. She also wants to f/u with her award machine operator OP. Case management to set up OP IV antibiotics for 3 more days then microsoft exchange architect to oral antibiotics thereafter. She is willing to come in BID. She states she lives in [place] and this is not a problem for her. She denies CP, SOB, abd. pain, N/V/D. - Vitals & Intake/Output Vital Signs: Vital Signs Temperature 97.7 F 11/11/23 07:52 Pulse Rate 93 H 11/11/23 07:52 Respiratory Rate 18 11/11/23 07:52 Blood Pressure 126/58 11/11/23 07:52 O2 Sat by Pulse Oximetry 93 L 11/11/23 07:52 Intake & Output: Intake & Output 11/08/23 11/09/23 11/10/23 11/11/23 11:59 11:59 11:59 11:59 Intake Total 600 Balance 600 Weight 168.4 kg - Lab Result Diagrams: 11/11/23 04:55 11/11/23 04:55 Lab Results-Last 24 Hrs: Lab Results-Last 24 Hours 11/10/23 11/10/23 11/10/23 Range/Units 15:22 15:28 15:28 WBC 13.2 H (3.98-10.04) x10^3/uL RBC 4.53 (3.93-5.22) x10^6/uL Hgb 14.3 (11.2-15.7) g/dL Hct 44.9 (34.1-44.9) % MCV 99.1 H (79.4-94.8) fL MCH 31.6 (25.6-32.2) pg MCHC 31.8 L (32.2-35.5) g/dL RDW 13.4 (11.7-14.4) % Plt Count 243 (182-369) x10^3/uL MPV 10.0 (9.4-12.3) fL Gran % 76.2 H (34.0-71.1) % Immature Gran % (Auto) 2.1 H (0.001-0.429) % Nucleat RBC Rel Count 0.0 (0.00-0.2) % Eos # (Auto) 0.26 (0.04-0.36) x10^3/uL Immature Gran # (Auto) 0.28 H (0.001-0.031) x10^3u/L Absolute Lymphs (auto) 1.67 (1.18-3.74) x10^3/uL Absolute Monos (auto) 0.82 (0.24-0.86) x10^3/uL Absolute Nucleated RBC 0.00 (0.00-0.012) x10^3u/L Lymphocytes % 12.7 L (19.3-51.7) % Monocytes % 6.2 (4.7-12.5) % Eosinophils % 2.0 (0.7-5.8) % Basophils % 0.8 (0.1-1.2) % Absolute Granulocytes 10.02 H (1.56-6.13) x10^3/uL Basophils # 0.11 H (0.01-0.08) x10^3/uL ESR (0-20) mm/hr Sodium (135-145) mmol/L Potassium (3.5-5.1) mmol/L Chloride (98-107) mmol/L Carbon Dioxide (22-30) mmol/L Anion Gap (5-15) MEQ/L BUN (7-17) mg/dL Creatinine (0.52-1.04) mg/dL Estimated GFR ML/MIN Glucose (74-106) mg/dL POC Glucometer (74 to 106) mg/dL Hemoglobin A1c (4.5-6.0) % Lactic Acid 2.3 H (0.4-2.0) Calcium (8.4-10.2) mg/dL Total Bilirubin (0.2-1.3) mg/dL AST (14-36) U/L ALT (0-35) U/L Alkaline Phosphatase (38-126) U/L Serum Total Protein (6.3-8.2) g/dL Albumin (3.5-5.0) g/dL Urine Color Yellow (Yellow) Urine Appearance Clear (Clear) Urine pH 6.5 (4.6-8.0) Ur Specific [place] 1.020 (1.005-1.030) Urine Protein Trace A (Negative) Urine Glucose (UA) 500 A (Negative) mg/dL Urine Ketones Trace A (Negative) Urine Blood Negative (Negative) Urine Nitrite Negative (Negative) Urine Bilirubin Negative (Negative) Urine Urobilinogen 1.0 A (0.2) mg/dL Ur Leukocyte Esterase Negative (Negative) U Hyaline Cast (Auto) NONE SEEN (0-2) /LPF Urine Microscopic RBC 0-2 (0-5) /HPF Urine Microscopic WBC 0-2 (0-5) /HPF Ur Epithelial Cells Few (None Seen) /HPF Urine Bacteria Few A (None Seen) /HPF Urine Culture Reflexed NO (NO) 11/10/23 11/10/23 11/10/23 Range/Units 15:28 15:28 17:33 WBC (3.98-10.04) x10^3/uL RBC (3.93-5.22) x10^6/uL Hgb (11.2-15.7) g/dL Hct (34.1-44.9) % MCV (79.4-94.8) fL MCH (25.6-32.2) pg MCHC (32.2-35.5) g/dL RDW (11.7-14.4) % Plt Count (182-369) x10^3/uL MPV (9.4-12.3) fL Gran % (34.0-71.1) % Immature Gran % (Auto) (0.001-0.429) % Nucleat RBC Rel Count (0.00-0.2) % Eos # (Auto) (0.04-0.36) x10^3/uL Immature Gran # (Auto) (0.001-0.031) x10^3u/L Absolute Lymphs (auto) (1.18-3.74) x10^3/uL Absolute Monos (auto) (0.24-0.86) x10^3/uL Absolute Nucleated RBC (0.00-0.012) x10^3u/L Lymphocytes % (19.3-51.7) % Monocytes % (4.7-12.5) % Eosinophils % (0.7-5.8) % Basophils % (0.1-1.2) % Absolute Granulocytes (1.56-6.13) x10^3/uL Basophils # (0.01-0.08) x10^3/uL ESR 52 H (0-20) mm/hr Sodium 134 L (135-145) mmol/L Potassium 4.2 (3.5-5.1) mmol/L Chloride 95 L (98-107) mmol/L Carbon Dioxide 30 (22-30) mmol/L Anion Gap 12.3 (5-15) MEQ/L BUN 11 (7-17) mg/dL Creatinine 0.58 (0.52-1.04) mg/dL Estimated GFR 118.7 ML/MIN Glucose 191 H (74-106) mg/dL POC Glucometer (74 to 106) mg/dL Hemoglobin A1c (4.5-6.0) % Lactic Acid 1.6 (0.4-2.0) Calcium 9.5 (8.4-10.2) mg/dL Total Bilirubin 0.60 (0.2-1.3) mg/dL AST 28 (14-36) U/L ALT 34 (0-35) U/L Alkaline Phosphatase 83 (38-126) U/L Serum Total Protein 7.5 (6.3-8.2) g/dL Albumin 3.9 (3.5-5.0) g/dL Urine Color (Yellow) Urine Appearance (Clear) Urine pH (4.6-8.0) Ur Specific [place] (1.005-1.030) Urine Protein (Negative) Urine Glucose (UA) (Negative) mg/dL Urine Ketones (Negative) Urine Blood (Negative) Urine Nitrite (Negative) Urine Bilirubin (Negative) Urine Urobilinogen (0.2) mg/dL Ur Leukocyte Esterase (Negative) U Hyaline Cast (Auto) (0-2) /LPF Urine Microscopic RBC (0-5) /HPF Urine Microscopic WBC (0-5) /HPF Ur Epithelial Cells (None Seen) /HPF Urine Bacteria (None Seen) /HPF Urine Culture Reflexed (NO) 11/10/23 11/11/23 11/11/23 Range/Units 21:39 04:55 04:55 WBC 12.1 H (3.98-10.04) x10^3/uL RBC 4.19 (3.93-5.22) x10^6/uL Hgb 13.0 (11.2-15.7) g/dL Hct 41.8 (34.1-44.9) % MCV 99.8 H (79.4-94.8) fL MCH 31.0 (25.6-32.2) pg MCHC 31.1 L (32.2-35.5) g/dL RDW 13.6 (11.7-14.4) % Plt Count 217 (182-369) x10^3/uL MPV 9.8 (9.4-12.3) fL Gran % 70.3 (34.0-71.1) % Immature Gran % (Auto) 2.0 H (0.001-0.429) % Nucleat RBC Rel Count 0.0 (0.00-0.2) % Eos # (Auto) 0.32 (0.04-0.36) x10^3/uL Immature Gran # (Auto) 0.24 H (0.001-0.031) x10^3u/L Absolute Lymphs (auto) 1.91 (1.18-3.74) x10^3/uL Absolute Monos (auto) 1.00 H (0.24-0.86) x10^3/uL Absolute Nucleated RBC 0.00 (0.00-0.012) x10^3u/L Lymphocytes % 15.8 L (19.3-51.7) % Monocytes % 8.3 (4.7-12.5) % Eosinophils % 2.6 (0.7-5.8) % Basophils % 1.0 (0.1-1.2) % Absolute Granulocytes 8.49 H (1.56-6.13) x10^3/uL Basophils # 0.12 H (0.01-0.08) x10^3/uL ESR (0-20) mm/hr Sodium 133 L (135-145) mmol/L Potassium 4.0 (3.5-5.1) mmol/L Chloride 98 (98-107) mmol/L Carbon Dioxide 29 (22-30) mmol/L Anion Gap 9.1 (5-15) MEQ/L BUN 10 (7-17) mg/dL Creatinine 0.60 (0.52-1.04) mg/dL Estimated GFR 117.8 ML/MIN Glucose 173 H (74-106) mg/dL POC Glucometer 203 H (74 to 106) mg/dL Hemoglobin A1c (4.5-6.0) % Lactic Acid (0.4-2.0) Calcium 8.7 (8.4-10.2) mg/dL Total Bilirubin (0.2-1.3) mg/dL AST (14-36) U/L ALT (0-35) U/L Alkaline Phosphatase (38-126) U/L Serum Total Protein (6.3-8.2) g/dL Albumin (3.5-5.0) g/dL Urine Color (Yellow) Urine Appearance (Clear) Urine pH (4.6-8.0) Ur Specific [place] (1.005-1.030) Urine Protein (Negative) Urine Glucose (UA) (Negative) mg/dL Urine Ketones (Negative) Urine Blood (Negative) Urine Nitrite (Negative) Urine Bilirubin (Negative) Urine Urobilinogen (0.2) mg/dL Ur Leukocyte Esterase (Negative) U Hyaline Cast (Auto) (0-2) /LPF Urine Microscopic RBC (0-5) /HPF Urine Microscopic WBC (0-5) /HPF Ur Epithelial Cells (None Seen) /HPF Urine Bacteria (None Seen) /HPF Urine Culture Reflexed (NO) 11/11/23 11/11/23 Range/Units 05:00 07:11 WBC (3.98-10.04) x10^3/uL RBC (3.93-5.22) x10^6/uL Hgb (11.2-15.7) g/dL Hct (34.1-44.9) % MCV (79.4-94.8) fL MCH (25.6-32.2) pg MCHC (32.2-35.5) g/dL RDW (11.7-14.4) % Plt Count (182-369) x10^3/uL MPV (9.4-12.3) fL Gran % (34.0-71.1) % Immature Gran % (Auto) (0.001-0.429) % Nucleat RBC Rel Count (0.00-0.2) % Eos # (Auto) (0.04-0.36) x10^3/uL Immature Gran # (Auto) (0.001-0.031) x10^3u/L Absolute Lymphs (auto) (1.18-3.74) x10^3/uL Absolute Monos (auto) (0.24-0.86) x10^3/uL Absolute Nucleated RBC (0.00-0.012) x10^3u/L Lymphocytes % (19.3-51.7) % Monocytes % (4.7-12.5) % Eosinophils % (0.7-5.8) % Basophils % (0.1-1.2) % Absolute Granulocytes (1.56-6.13) x10^3/uL Basophils # (0.01-0.08) x10^3/uL ESR (0-20) mm/hr Sodium (135-145) mmol/L Potassium (3.5-5.1) mmol/L Chloride (98-107) mmol/L Carbon Dioxide (22-30) mmol/L Anion Gap (5-15) MEQ/L BUN (7-17) mg/dL Creatinine (0.52-1.04) mg/dL Estimated GFR ML/MIN Glucose (74-106) mg/dL POC Glucometer 169 H (74 to 106) mg/dL Hemoglobin A1c 8.84 H (4.5-6.0) % Lactic Acid (0.4-2.0) Calcium (8.4-10.2) mg/dL Total Bilirubin (0.2-1.3) mg/dL AST (14-36) U/L ALT (0-35) U/L Alkaline Phosphatase (38-126) U/L Serum Total Protein (6.3-8.2) g/dL Albumin (3.5-5.0) g/dL Urine Color (Yellow) Urine Appearance (Clear) Urine pH (4.6-8.0) Ur Specific [place] (1.005-1.030) Urine Protein (Negative) Urine Glucose (UA) (Negative) mg/dL Urine Ketones (Negative) Urine Blood (Negative) Urine Nitrite (Negative) Urine Bilirubin (Negative) Urine Urobilinogen (0.2) mg/dL Ur Leukocyte Esterase (Negative) U Hyaline Cast (Auto) (0-2) /LPF Urine Microscopic RBC (0-5) /HPF Urine Microscopic WBC (0-5) /HPF Ur Epithelial Cells (None Seen) /HPF Urine Bacteria (None Seen) /HPF Urine Culture Reflexed (NO) Micro Results-Entire Visit: Microbiology 11/10/23 15:46 Blood Culture Gram Stain - Final Blood Not Reportable Accuchecks Date 11/11/23 Date 11/10/23 - Procedures and Test Procedures and Tests throughout Hospitalization: Therapy Orders & Screens 11/10/23 20:34 Smoking Cessation Education ONCE Comment: Diagnosis: cellulitis Smoking Status: Current every day smoker How long have you smoked: 22 yrs Have you smoked in the past 12 months: Yes Do you dip or chew tobacco: No Discharge Exam General Appearance: no apparent distress, alert Neurologic Exam: alert, oriented x 3, cooperative, normal mood/affect, nml cerebellar function, sensation nml, No motor deficits Eye Exam: PERRL, EOMI, eyes nml inspection Ears, Nose, Throat Exam: normal ENT inspection, pharynx normal, moist mucous membranes Neck Exam: normal inspection, non-tender, supple, full range of motion Respiratory Exam: normal breath sounds, lungs clear, No respiratory distress Cardiovascular Exam: regular rate/rhythm, normal heart sounds Gastrointestinal/Abdomen Exam: soft, No tenderness, No mass Pelvic Exam: deferred Rectal Exam: deferred Back Exam: normal inspection, normal range of motion, No CVA tenderness, No vertebral tenderness Extremity Exam: normal inspection, normal range of motion Skin Exam: warm, dry, rash, other (mutiple skin lesions all over body, plaque like lesions, + erythema) Wound Assessment: Skin/Wound Assessment Wound/Incision Assessment Start: 11/10/23 20:18 Text: Status: Active Freq: Q6H Protocol: Document 11/11/23 08:00 AR (Rec: 11/11/23 10:44 AR [id number]) Wound/Incision Assessment Anterior/Posterior Other Wound Assessment Shift Assessment Wound Type PSORIASIS Drainage Amount None General Appearance Open to air Wound Photo Photo Taken No Final Diagnosis/Problem List - Final Discharge Diagnosis/Problem (1) Psoriasis Current Visit: No Status: Acute Assessment & Plan: - acute flare - Patient has been on a steroid taper and oral doxy OP. - Follows with dermatology but no longer follows with Rheumatology. - pt states IV doxy works well for flares- better than oral in the past - will continue oral doxy BID until Friday then change to PO. - Continue steroids OP Code(s): L40.9 - PSORIASIS, UNSPECIFIED (2) Cellulitis Current Visit: Yes Status: Acute Assessment & Plan: -IV doxycycline. -Monitor clinical course. -Allergy profile is limiting. - outpatient IV doxycycline course. - F/U with Derm OP Code(s): L03.90 - CELLULITIS, UNSPECIFIED (3) Diabetes Current Visit: No Status: Chronic Assessment & Plan: - S/S insulin, accuchecks ac/hs - A1C 8.84- uncontrolled- f/u with PCP OP - Carb controlled diet Code(s): E11.9 - TYPE 2 DIABETES MELLITUS WITHOUT COMPLICATIONS (4) Leukocytosis Current Visit: No Status: Acute Code(s): D72.829 - ELEVATED WHITE BLOOD CELL COUNT, UNSPECIFIED (5) Morbid obesity Current Visit: No Status: Chronic Assessment & Plan: - advised ADA diet and exercise control Code(s): E66.01 - MORBID (SEVERE) OBESITY DUE TO EXCESS CALORIES (6) Smoker Current Visit: Yes Status: Chronic Assessment & Plan: - advised cessation Code(s): F17.200 - NICOTINE DEPENDENCE, UNSPECIFIED, UNCOMPLICATED - Discharge Discharge Date: 11/11/23 Disposition: Home, Self-Care Condition: Stable Prescriptions: New Doxycycline Hyclate 100 mg [Vibramycin 100 mg] 100 mg IV Q12H #0 Continue Folic Acid 1 mg PO DAILY Ergocalciferol (Vitamin D2) [Vitamin D] 1 tab PO WEEKLY Sucralfate 1 gm [Carafate 1 GM] 1 g PO UD PRN PRN Reason: GERD Insulin Aspart [NovoLOG Insulin] 1 units SQ UD PRN PRN Reason: Hyperglycemia Prednisone 10 mg [Deltasone 10 mg] 1 ea DAILY Lisinopril 20 mg [Zestril 20 MG] 20 mg PO DAILY Doxycycline Hyclate 100 mg [Vibramycin 100 MG] 100 mg PO BID clonazePAM 0.5 mg PO DAILY PRN PRN PRN Reason: Anxiety Insulin Glargine,Hum.rec.anlog [Toujeo Solostar] 32 units SQ QHS Lumateperone Tosylate [Caplyta] 21 mg PO DAILY Levothyroxine Sodium 100 Mcg [Synthroid 100 Mcg] 200 mcg PO DAILY Follow up with: CASSIE GUNN NP [Primary Care Provider] -
[2023-11-11 12:18] VITALS: PULSE 97
[2023-11-11] MEDS: HUMALOG SQ PRN (12:42)
[2023-11-11 16:57] VITALS: BP 114/55; RESP 18; TEMP 97.9
[2023-11-11] MEDS: VIBRAMYCIN 100 MG*** 100 MG in Dextrose 5%/Water IV Soln. 100ML PLUS BAG 100 ML IV SCH (17:21)
[2023-11-12] MEDS ORDERED: SYNTHROID 100 MCG PO SCH (10:00)
[2023-11-12] MEDS ORDERED: LUMATEPERONE TOSYLATE 21 MG PO SCH (10:00)
[2023-11-12 20:13] VITALS: O2SAT 98
[2023-11-14] MEDS ORDERED: VITAMIN D2 PO SCH (10:00)
== END 2023-11-11 19:15 | disposition home or self-care (01) ==
LOC: ED 13:25 → MED SURG 20:07
PROVIDERS: ADMIT Internal Medicine; ATTEND Internal Medicine
DX: L40.9 Psoriasis, unspecified (principal); L03.90 Cellulitis, unspecified; E11.9 Type 2 diabetes mellitus without complications; D72.829 Elevated white blood cell count, unspecified; E66.01 Morbid (severe) obesity due to excess calories; M06.9 Rheumatoid arthritis, unspecified; I10 Essential (primary) hypertension; F17.200 Nicotine dependence, unspecified, uncomplicated; Z79.899 Other long term (current) drug therapy
CPT/HCPCS: 36000; 36415; 80048; 80053; 81001; 82947; 83036; 83605; 85025; 85652; 87040; 94760; 96374; 99284; G0378; J1817; A9270-GY

== ENCOUNTER 2025-01-31 21:08 | Emergency (ER) | payer MEDICARE ==
--- NOTE | 2025-01-31 21:12 | ERPHSYRPT ---
- History of Present Illness Time Seen by Provider: 01/31/25 21:12 Source: patient, family Exam Limitations: no limitations Physician History: This is a morbidly obese 39-year-old white female patient arrives by private vehicle accompanied by significant other and is a patient of Dr. Okeefe with a complaint of concern for dehydration, abdominal pain, nausea vomiting and diarrhea and decreased appetite and oral intake. The symptoms began a couple of days ago and have worsened over this time. She has abdominal ultrasound scheduled for 02/08/2025. Patient has a history of insulin-dependent diabetes, anxiety, hypothyroidism, morbid obesity, asthma, sleep apnea, rheumatoid arthritis and psoriasis. Timing/Duration: day(s) (Last couple of days), worse Severity: mild (Moderate) Modifying Factors: Improves With: nothing Associated Symptoms: nausea, vomiting, abdominal pain, weakness, other (Diarrhea and decreased appetite) Allergies/Adverse Reactions: cefpodoxime Allergy (Intermediate, Verified 07/09/24 09:50) red, itchy rash cephalexin [From Keflex] Allergy (Verified 07/09/24 09:50) sulfamethoxazole [From Bactrim] Allergy (Verified 07/09/24 09:50) trimethoprim [From Bactrim] Allergy (Verified 07/09/24 09:50) vancomycin Allergy (Verified 07/09/24 09:50) Hives Home Medications: Folic Acid 1 mg PO DAILY 09/02/14 [History] Ergocalciferol (Vitamin D2) [Vitamin D] 1 tab PO WEEKLY 12/26/16 [History] Sucralfate 1 gm [Carafate 1 GM] 1 g PO UD PRN 03/19/23 [History] Insulin Aspart [NovoLOG Insulin] 1 units SQ UD PRN 05/07/23 [History] Lisinopril 20 mg [Zestril 20 MG] 20 mg PO DAILY 11/10/23 [History] Insulin Glargine,Hum.rec.anlog [[place] Solostar] 32 units SQ QHS 11/11/23 [History] Levothyroxine Sodium 100 Mcg [Synthroid 100 Mcg] 250 mcg PO DAILY 11/11/23 [History] clonazePAM 0.5 mg PO DAILY PRN PRN 11/11/23 [History] Tirzepatide [Mounjaro] 5 mg SQ WEEKLY 04/12/24 [History] Hx Tetanus, Diphtheria Vaccination/Date Given: Yes Hx Influenza Vaccination/Date Given: No Hx Pneumococcal Vaccination/Date Given: No Travel Risk - International Travel Have you traveled outside of the country in past 3 weeks: No - Emerging Infectious Disease Are you exhibiting symptoms associated with any current EIDs: Yes Symptoms: Diarrhea, Vomitting - Review of Systems Constitutional: Weakness Eyes: No Symptoms Ears, Nose, & Throat: No Symptoms Respiratory: No Symptoms Cardiac: No Symptoms Abdominal/Gastrointestinal: Abdominal Pain, Nausea, Vomiting, Diarrhea, Appetite Changes Genitourinary Symptoms: No Symptoms Musculoskeletal: No Symptoms Skin: No Symptoms Neurological: No Symptoms Psychological: No Symptoms Endocrine: No Symptoms Hematologic/Lymphatic: No Symptoms Immunological/Allergic: No Symptoms All Other Systems: Reviewed and Negative - Past Medical History Pertinent Past Medical History: Yes Neurological History: No Pertinent History ENT History: No Pertinent History Cardiac History: Hypertension Respiratory History: Asthma, Sleep Apnea Endocrine Medical History: Diabetes Type II, Hypothyroidism Musculoskeletal History: Arthritis, Rheumatoid Arthritis GI Medical History: Hemorrhoids History: No Pertinent History Psycho-Social History: Anxiety, Depression Female Reproductive Disorders: No Pertinent History Other Medical History: PSORIASIS, OBESITY - Past Surgical History Past Surgical History: Yes Neuro Surgical History: No Pertinent History Cardiac: No Pertinent History Respiratory: No Pertinent History Gastrointestinal: Other Genitourinary: No Pertinent History Musculoskeletal: No Pertinent History Female Surgical History: No Pertinent History Other Surgical History: 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 Significant Family History: diabetes - Female History Hx Last Menstrual Period: OCTOBER - Social History Smoking Status: Current every day smoker Drug Use: none - Social Determinants of Health Will the patient participate in the screening: Yes Do you worry about a steady place to live?: No In the past 12 months,have you had to go without utilities?: No Transportation Issues: No Has anyone in your support network made you feel unsafe?: No Have you or anyone in your house had to go w/o enough food: No - Nursing Vital Signs Nursing Vital Signs: Initial Vital Signs Temperature 96.8 F 01/31/25 21:08 Pulse Rate 109 H 01/31/25 21:08 Respiratory Rate 22 01/31/25 21:08 Blood Pressure 130/62 01/31/25 21:08 O2 Sat by Pulse Oximetry 99 01/31/25 21:08 Pain Scale Pain Intensity 0 - Physical Exam General Appearance: no apparent distress, alert, anxiety, obese Eye Exam: PERRL/EOMI, eyes nml inspection Ears, Nose, Throat Exam: normal ENT inspection, moist mucous membranes Neck Exam: normal inspection, non-tender, supple, full range of motion Respiratory Exam: normal breath sounds, lungs clear, airway intact, No chest tenderness, No respiratory distress Cardiovascular Exam: regular rate/rhythm, normal heart sounds, normal peripheral pulses Gastrointestinal/Abdomen Exam: soft, normal bowel sounds, tenderness (Mild diffuse), guarding (Mild diffuse), No rebound Pelvic Exam: not done Rectal Exam: not done Back Exam: normal inspection, normal range of motion, No CVA tenderness, No vertebral tenderness Extremity Exam: normal inspection, normal range of motion, pelvis stable Neurologic Exam: alert, oriented x 3, cooperative, hog raiser II-XII nml as tested, nml cerebellar function, nml station & gait, sensation nml Skin Exam: normal color, warm, dry Lymphatic Exam: No adenopathy SpO2 Interpretation: normal O2 Delivery: Room Air Ordered Tests: Active Orders 24 hr Category Date Time Status IV Insertion STAT Care 01/31/25 21:29 Active ABDOMEN AND PELVIS W/0 CONTRAS [CT] Stat Exams 01/31/25 21:30 Taken AMYLASE Stat Lab 01/31/25 21:20 Completed BLOOD CULTURE Stat Lab 01/31/25 20:45 Received CBC W DIFF Stat Lab 01/31/25 21:20 Completed CMP Stat Lab 01/31/25 21:20 Completed CULTURE,URINE Stat Lab 01/31/25 21:35 Received HCG QUALITATIVE, SERUM Stat Lab 01/31/25 21:20 Completed LIPASE Stat Lab 01/31/25 21:20 Completed Lactic Acid Stat Lab 01/31/25 21:32 Completed MONO SCREEN Stat Lab 01/31/25 21:20 Completed UA W/RFX UR CULTURE Stat Lab 01/31/25 21:35 Completed Medication Summary Discontinued Medications Generic Name Dose Route Start Last Admin Trade Name Freq PRN Reason Stop Dose Admin Sodium Chloride 1,000 mls @ 999 mls/hr 01/31/25 21:29 01/31/25 21:35 Sodium Chloride 0.9% 1000 Ml IV 01/31/25 22:29 999 mls/hr .Q1H1M STA Administration Sodium Chloride Confirm 01/31/25 21:32 Sodium Chloride 0.9% 1000 Ml Administered 01/31/25 21:33 Dose 1,000 mls @ ud .ROUTE .K-MED ONE Ondansetron HCl 4 mg 01/31/25 21:29 01/31/25 21:35 Ondansetron Hcl 4 Mg/2 Ml Vial IV 01/31/25 21:30 4 mg STAT ONE Administration Ondansetron HCl Confirm 01/31/25 21:32 Ondansetron Hcl 4 Mg/2 Ml Vial Administered 01/31/25 21:33 Dose 4 mg .ROUTE .[facility]-MED ONE Lab/Rad Data: Laboratory Result Diagrams 01/31/25 21:20 01/31/25 21:20 Laboratory Results 01/31/25 01/31/25 01/31/25 Range/Units 21:35 21:32 21:20 WBC (3.98-10.04) x10^3/uL RBC (3.93-5.22) x10^6/uL Hgb (11.2-15.7) g/dL Hct (34.1-44.9) % MCV (79.4-94.8) fL MCH (25.6-32.2) pg MCHC (32.2-35.5) g/dL RDW (11.7-14.4) % Plt Count (182-369) x10^3/uL MPV (9.4-12.3) fL Gran % (34.0-71.1) % Immature Gran % (Auto) (0.001-0.429) % Nucleat RBC Rel Count (0.00-0.2) % Eos # (Auto) (0.04-0.36) x10^3/uL Immature Gran # (Auto) (0.001-0.031) x10^3u/L Absolute Lymphs (auto) (1.18-3.74) x10^3/uL Absolute Monos (auto) (0.24-0.86) x10^3/uL Absolute Nucleated RBC (0.00-0.012) x10^3u/L Lymphocytes % (19.3-51.7) % Monocytes % (4.7-12.5) % Eosinophils % (0.7-5.8) % Basophils % (0.1-1.2) % Absolute Granulocytes (1.56-6.13) x10^3/uL Basophils # (0.01-0.08) x10^3/uL Sodium (135-145) mmol/L Potassium (3.5-5.1) mmol/L Chloride (98-107) mmol/L Carbon Dioxide (22-30) mmol/L Anion Gap (5-15) MEQ/L BUN (7-17) mg/dL Creatinine (0.52-1.04) mg/dL Estimated GFR ML/MIN Glucose (74-106) mg/dL Lactic Acid 3.0 H (0.4-2.0) Calcium (8.4-10.2) mg/dL Total Bilirubin (0.2-1.3) mg/dL AST (14-36) U/L ALT (0-35) U/L Alkaline Phosphatase (38-126) U/L Serum Total Protein (6.3-8.2) g/dL Albumin (3.5-5.0) g/dL Amylase (30-110) U/L Lipase (23-300) U/L Serum HCG, Qual NEGATIVE (NEGATIVE) Urine Color Dark Yellow A (Yellow) Urine Appearance Cloudy A (Clear) Urine pH 6.0 (4.6-8.0) Ur Specific [place] >=1.030 A (1.005-1.030) Urine Protein 30 (Negative) Urine Glucose (UA) Negative (Negative) mg/dL Urine Ketones 15 A (Negative) Urine Blood Negative (Negative) Urine Nitrite Negative (Negative) Urine Bilirubin Negative (Negative) Urine Urobilinogen 1.0 A (0.2) mg/dL Ur Leukocyte Esterase Negative (Negative) U Hyaline Cast (Auto) 3-5 A (0-2) /LPF Urine Microscopic RBC 0-2 (0-5) /HPF Urine Microscopic WBC 3-5 (0-5) /HPF Ur Epithelial Cells Many A (None Seen) /HPF Urine Bacteria Moderate A (None Seen) /HPF Urine Culture Reflexed YES (NO) Monoscreen (NEGATIVE) Influenza Type A Ag (NEGATIVE) Influenza Type B Ag (NEGATIVE) RSV (PCR) (NEGATIVE) SARS-CoV-2 (PCR) (NEGATIVE) 01/31/25 01/31/25 01/31/25 Range/Units 21:20 21:20 21:20 WBC 11.2 H (3.98-10.04) x10^3/uL RBC 5.00 (3.93-5.22) x10^6/uL Hgb 16.0 H (11.2-15.7) g/dL Hct 49.8 H (34.1-44.9) % MCV 99.6 H (79.4-94.8) fL MCH 32.0 (25.6-32.2) pg MCHC 32.1 L (32.2-35.5) g/dL RDW 14.1 (11.7-14.4) % Plt Count 166 L (182-369) x10^3/uL MPV 9.8 (9.4-12.3) fL Gran % 84.5 H (34.0-71.1) % Immature Gran % (Auto) 1.6 H (0.001-0.429) % Nucleat RBC Rel Count 0.0 (0.00-0.2) % Eos # (Auto) 0.31 (0.04-0.36) x10^3/uL Immature Gran # (Auto) 0.18 H (0.001-0.031) x10^3u/L Absolute Lymphs (auto) 0.59 L (1.18-3.74) x10^3/uL Absolute Monos (auto) 0.62 (0.24-0.86) x10^3/uL Absolute Nucleated RBC 0.00 (0.00-0.012) x10^3u/L Lymphocytes % 5.2 L (19.3-51.7) % Monocytes % 5.5 (4.7-12.5) % Eosinophils % 2.8 (0.7-5.8) % Basophils % 0.4 (0.1-1.2) % Absolute Granulocytes 9.50 H (1.56-6.13) x10^3/uL Basophils # 0.04 (0.01-0.08) x10^3/uL Sodium 132 L (135-145) mmol/L Potassium 4.5 (3.5-5.1) mmol/L Chloride 95 L (98-107) mmol/L Carbon Dioxide 27 (22-30) mmol/L Anion Gap 14.1 (5-15) MEQ/L BUN 13 (7-17) mg/dL Creatinine 0.91 (0.52-1.04) mg/dL Estimated GFR 82.3 ML/MIN Glucose 216 H (74-106) mg/dL Lactic Acid (0.4-2.0) Calcium 8.6 (8.4-10.2) mg/dL Total Bilirubin 1.00 (0.2-1.3) mg/dL AST 79 H (14-36) U/L ALT 40 H (0-35) U/L Alkaline Phosphatase 74 (38-126) U/L Serum Total Protein 8.5 H (6.3-8.2) g/dL Albumin 4.5 (3.5-5.0) g/dL Amylase 135 H (30-110) U/L Lipase 114 (23-300) U/L Serum HCG, Qual (NEGATIVE) Urine Color (Yellow) Urine Appearance (Clear) Urine pH (4.6-8.0) Ur Specific [place] (1.005-1.030) Urine Protein (Negative) Urine Glucose (UA) (Negative) mg/dL Urine Ketones (Negative) Urine Blood (Negative) Urine Nitrite (Negative) Urine Bilirubin (Negative) Urine Urobilinogen (0.2) mg/dL Ur Leukocyte Esterase (Negative) U Hyaline Cast (Auto) (0-2) /LPF Urine Microscopic RBC (0-5) /HPF Urine Microscopic WBC (0-5) /HPF Ur Epithelial Cells (None Seen) /HPF Urine Bacteria (None Seen) /HPF Urine Culture Reflexed (NO) Monoscreen NEGATIVE (NEGATIVE) Influenza Type A Ag (NEGATIVE) Influenza Type B Ag (NEGATIVE) RSV (PCR) (NEGATIVE) SARS-CoV-2 (PCR) (NEGATIVE) 01/31/25 Range/Units 20:46 WBC (3.98-10.04) x10^3/uL RBC (3.93-5.22) x10^6/uL Hgb (11.2-15.7) g/dL Hct (34.1-44.9) % MCV (79.4-94.8) fL MCH (25.6-32.2) pg MCHC (32.2-35.5) g/dL RDW (11.7-14.4) % Plt Count (182-369) x10^3/uL MPV (9.4-12.3) fL Gran % (34.0-71.1) % Immature Gran % (Auto) (0.001-0.429) % Nucleat RBC Rel Count (0.00-0.2) % Eos # (Auto) (0.04-0.36) x10^3/uL Immature Gran # (Auto) (0.001-0.031) x10^3u/L Absolute Lymphs (auto) (1.18-3.74) x10^3/uL Absolute Monos (auto) (0.24-0.86) x10^3/uL Absolute Nucleated RBC (0.00-0.012) x10^3u/L Lymphocytes % (19.3-51.7) % Monocytes % (4.7-12.5) % Eosinophils % (0.7-5.8) % Basophils % (0.1-1.2) % Absolute Granulocytes (1.56-6.13) x10^3/uL Basophils # (0.01-0.08) x10^3/uL Sodium (135-145) mmol/L Potassium (3.5-5.1) mmol/L Chloride (98-107) mmol/L Carbon Dioxide (22-30) mmol/L Anion Gap (5-15) MEQ/L BUN (7-17) mg/dL Creatinine (0.52-1.04) mg/dL Estimated GFR ML/MIN Glucose (74-106) mg/dL Lactic Acid (0.4-2.0) Calcium (8.4-10.2) mg/dL Total Bilirubin (0.2-1.3) mg/dL AST (14-36) U/L ALT (0-35) U/L Alkaline Phosphatase (38-126) U/L Serum Total Protein (6.3-8.2) g/dL Albumin (3.5-5.0) g/dL Amylase (30-110) U/L Lipase (23-300) U/L Serum HCG, Qual (NEGATIVE) Urine Color (Yellow) Urine Appearance (Clear) Urine pH (4.6-8.0) Ur Specific [place] (1.005-1.030) Urine Protein (Negative) Urine Glucose (UA) (Negative) mg/dL Urine Ketones (Negative) Urine Blood (Negative) Urine Nitrite (Negative) Urine Bilirubin (Negative) Urine Urobilinogen (0.2) mg/dL Ur Leukocyte Esterase (Negative) U Hyaline Cast (Auto) (0-2) /LPF Urine Microscopic RBC (0-5) /HPF Urine Microscopic WBC (0-5) /HPF Ur Epithelial Cells (None Seen) /HPF Urine Bacteria (None Seen) /HPF Urine Culture Reflexed (NO) Monoscreen (NEGATIVE) Influenza Type A Ag NEGATIVE (NEGATIVE) Influenza Type B Ag NEGATIVE (NEGATIVE) RSV (PCR) NEGATIVE (NEGATIVE) SARS-CoV-2 (PCR) NEGATIVE (NEGATIVE) - Progress Progress: improved, re-examined Progress Note: 01/31/25 21:39 My medical decision making and the assignment of moderate complexity to this patient's medical issue today is based on review of the patient's past medical history, reviewed the patient's medication list, reviewed patient drug allergy list, history present illness and physical findings on examination. The workup in this patient includes placement of intravenous line, infusion normal saline solution, infusion of antiemetic, CBC, CMP, amylase, lipase, urinalysis, viral swabs, monotest and CT scan of the abdomen pelvis without contrast. Differential diagnosis includes was not limited to pancreatitis, urinary tract infection, dehydration, DKA, electrolyte abnormalities, acute intra- abdominal/pelvic abnormality, incarcerated hernia, bowel obstruction, colitis, diverticulitis 01/31/25 22:46 I interpreted the patient's laboratory data results. Based on laboratory data results, the patient has not tested positive for viral illness and not tested positive for mononucleosis. She does have a mild leukocytosis, her glucose is mildly elevated 216. Her AST is 79 and ALT of 40. These are mildly elevated. However review of old laboratory data results, the patient has chronically mildly elevated transaminase levels. Patient's CO2 is normal her anion gap is normal. There are mild amount of ketones in her urine. She is nitrite and leukocyte esterase negative. There are bacteria in the urine. However there are significant numbers of epithelial cells present in the specimen. We will await the culture and sensitivity. The CT scan of the abdomen pelvis without contrast was interpreted by the radiologist and I reviewed the impression. The impression states fatty hepatomegaly. Mild multilevel degenerative spondylosis. Moderate sized fatty umbilical hernia. No other new/acute findings. Medical Desision Making - Independent Historian Additional History obtained from: Relative/friend - Diagnostic Testing Diagnostic test were ordered, analyzed, and reviewed by me: Yes Radiological Interpretation: Reviewed by me, Teleradiologist Report - Risk of complications Low Risk: Low risk of morbidity from additional dx testing or treatment - Departure Departure Disposition: Home Clinical Impression: Dehydration, Leukocytosis, Transaminitis, Umbilical hernia Condition: Stable Critical Care Time: No Referrals: CASSIE OKEEFE [employer] HELPER [Primary Care Provider, UNKNOWN] - Follow up/PCP as directed Additional Instructions: Drink plenty of clear liquids before advancing your diet. If your urine grows bacteria that needs treated, you will hear from the emergency department in the next 2 to 3 days. Monitor your blood sugar closely and treat elevated blood sugar per your outpatient instructions by your outpatient provider.
[2025-01-31 21:25] VITALS: TEMP 96.8
[2025-01-31] MEDS ORDERED: Zofran 4 MG/2 ML VIAL ONE (21:32)
[2025-01-31] MEDS: Zofran 4 MG/2 ML VIAL IV ONE (21:35)
[2025-01-31 21:51] LABS: BASOPHIL % 0.4 % (0.1-1.2); Basophil (Absolute #) 0.04 x10^3/uL (0.01-0.08); Eosinophil (Absolute #) 0.31 x10^3/uL (0.04-0.36); Hematocrit 49.8 % (34.1-44.9); Hemoglobin 16.0 g/dL (11.2-15.7); IMMATURE GRAN # 0.18 x10^3u/L (0.001-0.031); IMMATURE GRAN % 1.6 % (0.001-0.429); Lymphocyte (Absolute #) 0.59 x10^3/uL (1.18-3.74); Mean Corpuscular Hemoglobin 32.0 pg (25.6-32.2); Mean Corpuscular Hgb Concent. 32.1 g/dL (32.2-35.5); Monocyte (Absolute #) 0.62 x10^3/uL (0.24-0.86); NUCLEATED RBC # 0.00 x10^3u/L (0.00-0.012); NUCLEATED RBC % 0.0 % (0.00-0.2); Platelet Count 166 x10^3/uL (182-369); Red Blood Count 5.00 x10^6/uL (3.93-5.22); White Blood Count 11.2 x10^3/uL (3.98-10.04)
[2025-01-31 21:58] LABS: Glucose, Urine Negative (Negative); Protein,Urine Dip 30 (Negative); RBC 0-2 /HPF (0-5)
[2025-01-31 22:03] LABS: HCG SERUM TEST NEGATIVE (NEGATIVE)
[2025-01-31 22:06] LABS: Calcium 8.6 mg/dL (8.4-10.2); Carbon Dioxide 27.0 mmol/L (22-30); Creatinine 1 0.91 mg/dL (0.52-1.04); EST GLOMERULAR FILTRATION RATE 82.3 ML/MIN; Glucose 216.0 mg/dL (74-106); Potassium 4.5 mmol/L (3.5-5.1); SGOT/AST 79.0 U/L (14-36); SGPT/ALT 40.0 U/L (0-35); Total Protein 8.5 g/dL (6.3-8.2)
[2025-01-31 22:27] LABS: INFLUENZA A NEGATIVE (NEGATIVE); INFLUENZA B NEGATIVE (NEGATIVE); RESPIRATORY SYNCTIAL VIRUS NEGATIVE (NEGATIVE); SARS-CoV-2 Xpert Express NEGATIVE (NEGATIVE)
[2025-01-31 22:46] VITALS: BP 125/72; PULSE 92; RESP 18; O2SAT 95
[2025-01-31 23:57] LABS: Slide Review 1 YES
--- NOTE | 2025-02-01 08:42 | XRAY ---
Indication: Abdomen pain. Nausea, vomiting, and diarrhea. Multiple contiguous axial images obtained through the abdomen and pelvis without contrast. Comparison: March 19, 2023 Lung bases remain clear. Heart not enlarged. Due to patient body habitus, left lateral abdomen/pelvis not completely included in field of view. Noncontrasted stomach and bowel loops appear nonobstructed. Normal appendix. Again 23 cm fatty hepatomegaly. No free fluid/air. Remaining liver, gallbladder, pancreas, spleen, adrenal glands, kidneys, ureters, bladder, uterus, and aorta are again unremarkable for noncontrast exam. Osseous structures intact again with mild degenerative changes throughout spine. Stable moderate size fatty umbilical hernia. Impression: 1. Limited exam due to patient body habitus. 2. Again fatty hepatomegaly and fatty umbilical hernia. 3. No new/acute intra-abdominal/pelvic abnormalities on this noncontrast exam.
== END 2025-01-31 23:00 | disposition home or self-care (01) ==
LOC: ED 21:08
DX: E86.0 Dehydration (principal); D72.829 Elevated white blood cell count, unspecified; R74.01 Elevation of levels of liver transaminase levels; K42.9 Umbilical hernia without obstruction or gangrene; R11.2 Nausea with vomiting, unspecified; R19.7 Diarrhea, unspecified; R10.9 Unspecified abdominal pain; I10 Essential (primary) hypertension; E11.9 Type 2 diabetes mellitus without complications; Z79.4 Long term (current) use of insulin; Z79.85 Long-term (current) use of injectable non-insulin antidiabetic drugs; Z79.899 Other long term (current) drug therapy; Z72.0 Tobacco use